=== PATIENT | male | born 1965 | race Hispanic/Latino ===

== ENCOUNTER 2017-07-01 14:32 | Observation (INO) | payer MEDICARE ==
[~2017-07-01 14:32] MED LIST: AEC81 PO; BUTA1CAP51 PO; INSU10VI3 SQ; INSU3INS5 SQ; METO-391 PO; NITR0.4T SL; OMEP20CA10 PO; SERT50TA12 PO; SIMV40TA59 PO; VARD10TA20 PO; XALA2.5OS OD
[2017-07-01] MEDS ORDERED: NITROGLYCERIN 0.4 MG SL TAB SL ONE (14:56)
[2017-07-01] MEDS ORDERED: ASPIRIN 325MG EC TAB 325 MG TABLET.DR PO ONE (14:56)
[2017-07-01 15:09] LABS: BASOPHILS % (AUTO) 1.1 % (0.0-5.0); EOSINOPHILS % (AUTO) 2.5 % (0.0-8.0); HEMATOCRIT 44.5 % (42-54); LYMPHOCYTES % (AUTO) 32.4 % (21.0-51.0); MEAN CORPUSCULAR HEMOGLOBIN 31.3 pg (27.0-33.0); MEAN CORPUSCULAR HGB CONC 34.7 g/dL (32.0-36.0); MEAN CORPUSCULAR VOLUME 90.3 fL (79-99); MONOCYTES % (AUTO) 5.2 % (3.0-13.0); NEUTROPHILS % (AUTO) 58.8 % (40.0-77.0); NUCLEATED RED BLOOD CELLS 0.1 % (0.0-0.19); PLATELET COUNT (AUTO) 223 K/uL (130-400); RED BLOOD CELL COUNT(AUTO) 4.93 MIL/uL (4.50-6.20); RED CELL DISTRIBUTION WIDTH 14.5 % (11.0-15.5); WHITE BLOOD COUNT (AUTO) 6.2 K/uL (4.8-10.8)
[2017-07-01 15:21] LABS: INR 0.9 (0.85-1.15); PARTIAL THROMBOPLASTIN TIME 25.9 SEC (26.3-35.5); PROTHROMBIN TIME 9.5 SEC (9.6-11.6)
[2017-07-01 15:24] LABS: CARBON DIOXIDE 26 mmol/L (21-32); CHLORIDE 97 mmol/L (101-111); CREATININE 0.8 mg/dL (0.5-1.5); GLOMERULAR FILTR. RATE CALC 108 mL/min (>60); GLUCOSE,RANDOM 391 mg/dL (70-105); SODIUM SERUM 132 mmol/L (136-145); UREA NITROGEN, BLOOD 15 mg/dL (7-18)
[2017-07-01 15:34] LABS: B-TYPE NATRIURETIC PEPTIDE 59 pg/mL (0-100)
[2017-07-01 15:38] LABS: ALANINE AMINOTRANSFERASE 79 U/L (12-78); ALBUMIN 3.1 g/dL (3.5-5.0); ASPARTATE AMINOTRANSFERASE 59 U/L (10-37); BILIRUBIN,TOTAL 0.4 mg/dL (0.2-1.0); CREATINE KINASE MB < 0.5 ng/mL (0.5-3.6); CREATINE KINASE, TOTAL 30 U/L (21-232); MYOGLOBIN 12 ng/mL (10-92); TOTAL PROTEIN, SERUM 7.9 g/dL (6.0-8.3)
[2017-07-01] MEDS ORDERED: MECLIZINE HCL 25 MG TABLET ONE (17:32)
[2017-07-01] MEDS ORDERED: NITROGLYCERIN 0.4 MG SL TAB SL PRN (17:45)
[2017-07-01] MEDS ORDERED: MAG HYDROX/AL HYDROX/SIMETH ES 30 ML SUSP UDCUP PO PRN (17:45)
[2017-07-01] MEDS ORDERED: GUAIFENESIN-DM 200/20 MG 10 ML PO PRN (17:45)
[2017-07-01] MEDS ORDERED: LACTULOSE 20 GM/30 ML UDCUP PO PRN (17:45)
[2017-07-01] MEDS ORDERED: ACETAMINOPHEN 325 MG TAB PO PRN ×2 (17:45)
[2017-07-01] MEDS ORDERED: ONDANSETRON HCL 4 MG/2 ML VIAL IV PRN (17:45)
[2017-07-01 18:32] LABS: CREATINE KINASE MB < 0.5 ng/mL (0.5-3.6); CREATINE KINASE, TOTAL 47 U/L (21-232); MYOGLOBIN 13 ng/mL (10-92); TROPONIN I < 0.04 ng/mL (0.00-0.06)
[2017-07-01] MEDS ORDERED: ENOXAPARIN SODIUM 40 MG/0.4 ML SYRINGE SQ ONE (19:03)
[2017-07-01] MEDS ORDERED: FAMOTIDINE/PF 20 MG/2 ML VIAL IV SCH (21:00)
[2017-07-02] MEDS ORDERED: ASPIRIN 325 MG TABLET PO SCH (09:00)
[2017-07-02] MEDS ORDERED: ENOXAPARIN SODIUM 40 MG/0.4 ML SYRINGE SQ SCH (09:00)
== END 2017-07-01 20:20 | disposition left against medical advice (07) ==
LOC: EDH 14:32 → EDHIP 17:35
PROVIDERS: ADMIT Family Medicine; ATTEND Family Medicine
DX: R07.89 Other chest pain (principal); I25.10 Atherosclerotic heart disease of native coronary artery without angina pectoris; E11.9 Type 2 diabetes mellitus without complications; E78.5 Hyperlipidemia, unspecified; I10 Essential (primary) hypertension; F17.210 Nicotine dependence, cigarettes, uncomplicated
CPT/HCPCS: 36415; 71045; 80053; 82550 ×2; 82553 ×2; 83874 ×2; 83880; 84484 ×2; 85025; 85610; 85730; 93005; 99285; G0378 ×3; J1650

== ENCOUNTER 2017-11-07 12:01 | Emergency (ER) | payer MEDICARE ==
[2017-11-07] MEDS ORDERED: ASPIRIN 325 MG TABLET ONE (12:17)
[2017-11-07] MEDS ORDERED: DIAZEPAM 5 MG TABLET ONE (12:26)
[2017-11-07 12:36] LABS: EOSINOPHILS % (AUTO) 3.4 % (0.0-8.0); HEMATOCRIT 47.3 % (42-54); LYMPHOCYTES % (AUTO) 34.6 % (21.0-51.0); MEAN CORPUSCULAR HEMOGLOBIN 31.1 pg (27.0-33.0); MEAN CORPUSCULAR HGB CONC 34.1 g/dL (32.0-36.0); MEAN CORPUSCULAR VOLUME 91.4 fL (79-99); MONOCYTES % (AUTO) 5.6 % (3.0-13.0); NEUTROPHILS % (AUTO) 55.4 % (40.0-77.0); NUCLEATED RED BLOOD CELLS 0.1 % (0.0-0.19); PLATELET COUNT (AUTO) 237 K/uL (130-400); RED BLOOD CELL COUNT(AUTO) 5.18 MIL/uL (4.50-6.20); RED CELL DISTRIBUTION WIDTH 14.5 % (11.0-15.5); WHITE BLOOD COUNT (AUTO) 7.4 K/uL (4.8-10.8)
[2017-11-07 12:47] LABS: CREATININE 0.7 mg/dL (0.5-1.5)
[2017-11-07 12:49] LABS: INR 0.88 (0.85-1.15); PARTIAL THROMBOPLASTIN TIME 27.3 SEC (26.3-35.5); PROTHROMBIN TIME 9.3 SEC (9.6-11.6)
[2017-11-07 13:14] LABS: ALBUMIN 3.2 g/dL (3.5-5.0); BILIRUBIN,TOTAL 0.4 mg/dL (0.2-1.0); CREATINE KINASE MB 1.7 ng/mL (0.5-3.6); TOTAL PROTEIN, SERUM 8.3 g/dL (6.0-8.3)
== END 2017-11-07 14:32 | disposition home or self-care (01) ==
LOC: EDH 12:01
DX: R07.9 Chest pain, unspecified (principal); I25.10 Atherosclerotic heart disease of native coronary artery without angina pectoris; E11.9 Type 2 diabetes mellitus without complications; E78.5 Hyperlipidemia, unspecified; I10 Essential (primary) hypertension; Z72.0 Tobacco use
CPT/HCPCS: 36415; 71045; 80053; 82550; 82553; 83874; 83880; 84484; 85025; 85610; 85730; 93005

== ENCOUNTER 2018-03-17 16:43 | Emergency (ER) | payer MEDICARE ==
[2018-03-17 17:48] LABS: BASOPHILS % (AUTO) 0.8 % (0.0-5.0); EOSINOPHILS % (AUTO) 5.9 % (0.0-8.0); HEMATOCRIT 44.6 % (42-54); MEAN CORPUSCULAR HEMOGLOBIN 30.8 pg (27.0-33.0); MEAN CORPUSCULAR HGB CONC 33.8 g/dL (32.0-36.0); MEAN CORPUSCULAR VOLUME 91.1 fL (79-99); MONOCYTES % (AUTO) 6.8 % (3.0-13.0); NEUTROPHILS % (AUTO) 62.5 % (40.0-77.0); NUCLEATED RED BLOOD CELLS 0.1 % (0.0-0.19); PLATELET COUNT (AUTO) 198 K/uL (130-400); WHITE BLOOD COUNT (AUTO) 7.3 K/uL (4.8-10.8)
[2018-03-17 17:57] LABS: CREATININE 0.9 mg/dL (0.5-1.5); POTASSIUM 4.9 mmol/L (3.5-5.1)
[2018-03-17 19:02] LABS: APPEARANCE,URINE Clear (CLEAR); BILIRUBIN,URINE Negative (NEGATIVE); COLOR,URINE Yellow (YELLOW); GLUCOSE, URINE (UA) >=1000 mg/dL (NEGATIVE); KETONES,URINE Negative (NEGATIVE); LEUKOCYTE ESTERASE ,URINE Negative (NEGATIVE); NITRATE,URINE Negative (NEGATIVE); OCCULT BLOOD,URINE Negative (NEGATIVE); PROTEIN,URINE Negative (NEGATIVE)
[2018-03-17 19:05] LABS: AMPHET/METH SCREEN,URINE NEGATIVE (NEGATIVE); BARBITURATE SCREEN, URINE NEGATIVE (NEGATIVE); BENZODIAZEPINES SCREEN,URINE NEGATIVE (NEGATIVE); CANNABINOID SCREEN,URINE NEGATIVE (NEGATIVE); COCAINE SCREEN,URINE NEGATIVE (NEGATIVE); OPIATE SCREEN,URINE NEGATIVE (NEGATIVE); PHENCYCLIDINE SCREEN,URINE NEGATIVE (NEGATIVE)
[2018-03-17 19:16] LABS: BACTERIA,URINE Rare /HPF (None Seen); RBC,URINE None Seen /HPF (0-1); WBC,URINE 0-1 /HPF (0-1)
== END 2018-03-17 19:51 | disposition home or self-care (01) ==
LOC: EDH 16:43
DX: R55 Syncope and collapse (principal); B02.9 Zoster without complications; I25.10 Atherosclerotic heart disease of native coronary artery without angina pectoris; E11.9 Type 2 diabetes mellitus without complications; E78.5 Hyperlipidemia, unspecified; I10 Essential (primary) hypertension; Z90.49 Acquired absence of other specified parts of digestive tract; Z72.0 Tobacco use
CPT/HCPCS: 36415; 80048; 80305; 81001; 84484; 85025; 93005

== ENCOUNTER 2018-03-30 18:33 | Emergency (ER) | payer MEDICARE | END 2018-03-30 19:04 | disposition home or self-care (01) | LOC: EDH 18:33 | DX: R21 Rash and other nonspecific skin eruption (principal); E78.5 Hyperlipidemia, unspecified; I25.10 Atherosclerotic heart disease of native coronary artery without angina pectoris; E11.40 Type 2 diabetes mellitus with diabetic neuropathy, unspecified; I10 Essential (primary) hypertension; Z90.49 Acquired absence of other specified parts of digestive tract; Z72.0 Tobacco use | CPT/HCPCS: 99281 ==

== ENCOUNTER 2018-12-10 17:20 | Observation (INO) | payer MEDICARE | END 2018-12-12 20:00 | disposition home or self-care (01) | LOC: EDH 17:20 → 3AH 12-11 01:42 → EDHIP 20:03 ==

== ENCOUNTER 2019-01-09 11:41 | Observation (INO) | payer MEDICARE ==
[~2019-01-09] VITALS: Ht 188 cm; Wt 95.0 kg
[~2019-01-09 11:41] MED LIST changes: +ATOR10 PO; +ATOR20TA65 PO; -BUTA1CAP51 PO; +GLIP5TAB11 PO; +IBUP-2071 PO; -INSU10VI3 SQ; -INSU3INS5 SQ; +LISI-617 PO; +METF-444 PO; -METO-391 PO; -NITR0.4T SL; -OMEP20CA10 PO; +PREG75 PO; -SERT50TA12 PO; -SIMV40TA59 PO; -VARD10TA20 PO
[2019-01-09 11:57] LABS: BASOPHILS % (AUTO) 0.8 % (0.0-5.0); EOSINOPHILS % (AUTO) 3.6 % (0.0-8.0); HEMATOCRIT 48.1 % (42-54); LYMPHOCYTES % (AUTO) 28.6 % (21.0-51.0); MEAN CORPUSCULAR HEMOGLOBIN 31.9 pg (27.0-33.0); MEAN CORPUSCULAR HGB CONC 34.4 g/dL (32.0-36.0); MEAN CORPUSCULAR VOLUME 92.7 fL (79-99); MONOCYTES % (AUTO) 5.2 % (3.0-13.0); NEUTROPHILS % (AUTO) 61.8 % (40.0-77.0); PLATELET COUNT (AUTO) 223 K/uL (130-400); RED BLOOD CELL COUNT(AUTO) 5.19 MIL/uL (4.50-6.20); RED CELL DISTRIBUTION WIDTH 14.3 % (11.0-15.5); WHITE BLOOD COUNT (AUTO) 8.1 K/uL (4.8-10.8)
[2019-01-09] MEDS ORDERED: SODIUM CHLORIDE 0.9% 1000ML 1,000 ML IV ONE ×2 (12:04→13:16)
[2019-01-09] MEDS ORDERED: ASPIRIN 325 MG TABLET ONE (12:05)
[2019-01-09 12:06] LABS: CREATININE 0.8 mg/dL (0.5-1.5); POTASSIUM 4.5 mmol/L (3.5-5.1)
[2019-01-09 12:21] LABS: B-TYPE NATRIURETIC PEPTIDE 55 pg/mL (0-100)
[2019-01-09] MEDS ORDERED: IBUPROFEN 200 MG TAB ONE (13:15)
[2019-01-09] MEDS ORDERED: INSULIN HUMULIN R 100 UNIT/ML 3ML ONE (14:13)
[2019-01-09 14:16] LABS: AMPHET/METH SCREEN,URINE NEGATIVE (NEGATIVE); BARBITURATE SCREEN, URINE NEGATIVE (NEGATIVE); BENZODIAZEPINES SCREEN,URINE NEGATIVE (NEGATIVE); CANNABINOID SCREEN,URINE NEGATIVE (NEGATIVE); COCAINE SCREEN,URINE NEGATIVE (NEGATIVE); OPIATE SCREEN,URINE NEGATIVE (NEGATIVE); PHENCYCLIDINE SCREEN,URINE NEGATIVE (NEGATIVE)
[2019-01-09] MEDS ORDERED: ONDANSETRON HCL 4 MG/2 ML VIAL ONE (14:43)
[2019-01-09] MEDS ORDERED: MORPHINE SULFATE 2 MG/ML 1ML SYG ONE (14:44)
[2019-01-09] MEDS ORDERED: NITROGLYCERIN 0.4 MG SL TAB SL ONE (14:44)
[2019-01-09] MEDS ORDERED: ENOXAPARIN SODIUM 100 MG/1 ML SQ ONE (16:03)
[2019-01-09] MEDS: SODIUM CHLORIDE 0.9% 1000ML 1,000 ML IV SCH (17:24)
[2019-01-09] MEDS ORDERED: HYDRALAZINE HCL 20 MG/ML VIAL IV PRN (17:30)
[2019-01-09] MEDS ORDERED: LACTULOSE 20 GM/30 ML UDCUP PO PRN (17:30)
[2019-01-09] MEDS ORDERED: MAG HYDROX/AL HYDROX/SIMETH ES 30 ML SUSP UDCUP PO PRN (17:30)
[2019-01-09] MEDS ORDERED: DiphenhydrAMINE HCL 50 MG/ML VIAL IV PRN (17:30)
[2019-01-09] MEDS ORDERED: ONDANSETRON HCL 4 MG/2 ML VIAL IV PRN (17:30)
[2019-01-09] MEDS ORDERED: ACETAMINOPHEN 325 MG TAB PO PRN ×2 (17:30)
[2019-01-09] MEDS ORDERED: ALBUTEROL SULFATE 0.083% 2.5 MG/3 ML INH IH PRN (17:30)
[2019-01-09] MEDS ORDERED: DIPHENHYDRAMINE HCL 25 MG CAPSULE PO PRN (17:30)
[2019-01-09] MEDS ORDERED: GUAIFENESIN-DM 200/20 MG 10 ML PO PRN (17:30)
[2019-01-09] MEDS ORDERED: ACETAMINOPHEN EXTRA STRENGTH 500 MG TABLET PO PRN (17:45)
[2019-01-09] MEDS ORDERED: ACETAMINOPHEN 325 MG TAB ONE (18:28)
[2019-01-09 19:56] VITALS: BP 131/73
[2019-01-09] MEDS: FAMOTIDINE 20MG TAB 20 MG TAB PO SCH (20:24)
[2019-01-09] MEDS: METOPROLOL TARTRATE 25 MG TAB PO SCH (20:25)
[2019-01-09 22:17] LABS: CREATINE KINASE, TOTAL 22 U/L (21-232); MYOGLOBIN 16 ng/mL (10-92); TROPONIN I < 0.04 ng/mL (0.00-0.06)
[2019-01-10] VITALS (10 sets, daily range): BP systolic 95–120; BP diastolic 59–80
[2019-01-10] MEDS ORDERED: MORPHINE SULFATE 2 MG/ML 1ML SYG ONE (00:05)
[2019-01-10] MEDS ORDERED: MORPHINE SULFATE 2 MG/ML 1ML SYG IM PRN ×2 (00:15)
[2019-01-10] MEDS: SODIUM CHLORIDE 0.9% 1000ML 1,000 ML IV SCH ×3 (03:24→23:24)
[2019-01-10 03:56] LABS: BASOPHILS % (AUTO) 0.7 % (0.0-5.0); EOSINOPHILS % (AUTO) 5.4 % (0.0-8.0); HEMATOCRIT 41.6 % (42-54); LYMPHOCYTES % (AUTO) 30.3 % (21.0-51.0); MEAN CORPUSCULAR HEMOGLOBIN 31.5 pg (27.0-33.0); MEAN CORPUSCULAR HGB CONC 33.5 g/dL (32.0-36.0); MEAN CORPUSCULAR VOLUME 94.1 fL (79-99); MONOCYTES % (AUTO) 6.2 % (3.0-13.0); NEUTROPHILS % (AUTO) 57.4 % (40.0-77.0); NUCLEATED RED BLOOD CELLS 0.1 % (0.0-0.19); PLATELET COUNT (AUTO) 189 K/uL (130-400); RED BLOOD CELL COUNT(AUTO) 4.42 MIL/uL (4.50-6.20); RED CELL DISTRIBUTION WIDTH 14.3 % (11.0-15.5); WHITE BLOOD COUNT (AUTO) 7.3 K/uL (4.8-10.8)
[2019-01-10 04:21] LABS: ALANINE AMINOTRANSFERASE 95 U/L (12-78); ALBUMIN 2.7 g/dL (3.5-5.0); ASPARTATE AMINOTRANSFERASE 91 U/L (10-37); BILIRUBIN,TOTAL 0.5 mg/dL (0.2-1.0); CARBON DIOXIDE 25 mmol/L (21-32); CHLORIDE 104 mmol/L (101-111); CREATINE KINASE, TOTAL 20 U/L (21-232); CREATININE 0.7 mg/dL (0.5-1.5); GLOMERULAR FILTR. RATE CALC 125 mL/min (>60); GLUCOSE,RANDOM 187 mg/dL (70-105); LIPASE 95 U/L (114-286); MYOGLOBIN 15 ng/mL (10-92); POTASSIUM 3.9 mmol/L (3.5-5.1); SODIUM SERUM 136 mmol/L (136-145); TOTAL PROTEIN, SERUM 7.2 g/dL (6.0-8.3); TROPONIN I < 0.04 ng/mL (0.00-0.06); UREA NITROGEN, BLOOD 12 mg/dL (7-18)
[2019-01-10] MEDS: NITROGLYCERIN 0.4 MG SL TAB SL PRN ×3 (08:05→08:21)
[2019-01-10] MEDS: FAMOTIDINE 20MG TAB 20 MG TAB PO SCH ×2 (08:16→21:41)
[2019-01-10] MEDS: ASPIRIN 325 MG TABLET PO SCH (08:16)
[2019-01-10] MEDS: ATORVASTATIN CALCIUM 20 MG TABLET PO SCH (08:16)
[2019-01-10] MEDS: ENOXAPARIN SODIUM 30 MG/0.3 ML SQ SCH (08:16)
[2019-01-10] MEDS: METOPROLOL TARTRATE 25 MG TAB PO SCH ×2 (08:17→21:42)
[2019-01-10] MEDS ORDERED: MORPHINE SULFATE 2 MG/ML 1ML SYG IV PRN (09:00)
[2019-01-10] MEDS ORDERED: IOHEXOL-350 75 ML VIAL IV ONE (09:16)
[2019-01-10] MEDS ORDERED: REGADENOSON 0.4 MG/5 ML PF SYG IVP SCH (09:30)
[2019-01-10] MEDS: MORPHINE SULFATE 2 MG/ML 1ML SYG IV PRN ×2 (14:29→21:42)
--- NOTE | 2019-01-10 15:03 | NUR ---
INITIAL: Met with pt this afternoon to discuss dcp. Pt states that he lives w spouse and children. Prior to admission was using a cane and required assistance w ADLs. Per pt he has provider services. Pt mentions that he was still driving prior to admission. He states that he feels safe and comfortable to return home at [place]. CM to continue to follow and wait for Md recommendations. Addendum: 01/10/19 at 1505 by ABDON SCHAFFER Amended: Links added.
[2019-01-11] MEDS: SODIUM CHLORIDE 0.9% 1000ML 1,000 ML IV SCH (00:19)
[2019-01-11 04:00] VITALS: BP 95/60
[2019-01-11 07:02] VITALS: BP 114/69
[2019-01-11] MEDS: ATORVASTATIN CALCIUM 20 MG TABLET PO SCH (08:28)
[2019-01-11] MEDS: FAMOTIDINE 20MG TAB 20 MG TAB PO SCH (08:28)
[2019-01-11] MEDS: ASPIRIN 325 MG TABLET PO SCH (08:28)
[2019-01-11] MEDS: METOPROLOL TARTRATE 25 MG TAB PO SCH (08:29)
[2019-01-11] MEDS: ENOXAPARIN SODIUM 30 MG/0.3 ML SQ SCH (08:30)
[2019-01-11] MEDS: MORPHINE SULFATE 2 MG/ML 1ML SYG IV PRN ×2 (08:31→13:10)
[2019-01-11 11:00] VITALS: BP 107/68
[2019-01-11] MEDS ORDERED: NITROGLYCERIN 1GM/1 INCH PACKET TD SCH (14:00)
[2019-01-11] MEDS ORDERED: METF-444 PO (14:16)
[2019-01-11] MEDS ORDERED: LISI-617 PO (14:16)
[2019-01-11] MEDS ORDERED: AEC81 PO (14:16)
[2019-01-11] MEDS ORDERED: ATOR20TA65 PO (14:16)
[2019-01-11] MEDS ORDERED: PREG75 PO (14:16)
[2019-01-11] MEDS ORDERED: NITR0.4T50 SL (14:16)
[2019-01-11] MEDS ORDERED: GLIP5TAB11 PO (14:16)
[2019-01-11] MEDS ORDERED: METO25 PO (14:16)
[2019-01-11 15:05] VITALS: BP 100/65
--- NOTE | 2019-01-11 20:00 | NUR ---
PT DISCHARGED AT THIS TIME. ESCORTED TO LOBBY BY VANITA PCP VIA WHEELCHAIR. PENDING TO BUFFER NICKEL PT AT THE LOBBY. STABLE. NO IV IN PLACE. TELE PACK REMOVED.
== END 2019-01-11 20:00 | disposition home or self-care (01) ==
LOC: EDH 11:41 → EDHIP 17:24 → 2AH 18:28
PROVIDERS: ADMIT Family Medicine; ATTEND Family Medicine
DX: R07.89 Other chest pain (principal); I25.10 Atherosclerotic heart disease of native coronary artery without angina pectoris; I10 Essential (primary) hypertension; E11.40 Type 2 diabetes mellitus with diabetic neuropathy, unspecified; E78.5 Hyperlipidemia, unspecified; E87.1 Hypo-osmolality and hyponatremia; G89.29 Other chronic pain; F17.210 Nicotine dependence, cigarettes, uncomplicated; Z95.1 Presence of aortocoronary bypass graft; Z95.5 Presence of coronary angioplasty implant and graft; Z79.899 Other long term (current) drug therapy
CPT/HCPCS: 36415 ×2; 70450; 71045; 71275; 76705; 78452; 80048; 80053; 80305; 82550 ×2; 82948 ×7; 83690; 83874 ×2; 83880; 84484 ×5; 85025 ×2; 93005 ×2; 93017; 93970; 94640; 94664; 96372 ×2; 96374; 96375; 96376 ×2; 99291; A9500 ×2; G0378 ×47; G0480; J1650 ×3; J1815; J2405 ×2; J2785; J7030 ×4; Q9967

== ENCOUNTER 2019-01-20 18:41 | Inpatient (IN) | payer MEDICARE ==
[~2019-01-20] VITALS: Ht 177.8 cm; Wt 95.8 kg
[~2019-01-20 18:41] MED LIST changes: -ATOR10 PO; -IBUP-2071 PO; +METO25 PO; +NITR0.4T50 SL
[2019-01-20 19:08] LABS: BASOPHILS % (AUTO) 0.8 % (0.0-5.0); EOSINOPHILS % (AUTO) 5.1 % (0.0-8.0); LYMPHOCYTES % (AUTO) 26.7 % (21.0-51.0); MEAN CORPUSCULAR HEMOGLOBIN 31.6 pg (27.0-33.0); MEAN CORPUSCULAR HGB CONC 33.7 g/dL (32.0-36.0); MEAN CORPUSCULAR VOLUME 93.9 fL (79-99); NEUTROPHILS % (AUTO) 60.4 % (40.0-77.0); PLATELET COUNT (AUTO) 213 K/uL (130-400); RED BLOOD CELL COUNT(AUTO) 4.58 MIL/uL (4.50-6.20); RED CELL DISTRIBUTION WIDTH 14.1 % (11.0-15.5); WHITE BLOOD COUNT (AUTO) 7.6 K/uL (4.8-10.8)
[2019-01-20 19:18] LABS: CREATININE 0.8 mg/dL (0.5-1.5); POTASSIUM 4.5 mmol/L (3.5-5.1)
[2019-01-20 19:23] LABS: ALBUMIN 3.1 g/dL (3.5-5.0); BILIRUBIN,TOTAL 0.5 mg/dL (0.2-1.0); TOTAL PROTEIN, SERUM 8.1 g/dL (6.0-8.3)
[2019-01-20 19:26] LABS: INR 0.9 (0.85-1.15); PROTHROMBIN TIME 9.5 SEC (9.6-11.6)
[2019-01-20] MEDS ORDERED: ACETAMINOPHEN 325 MG TAB ONE (20:31)
[2019-01-20 20:57] LABS: APPEARANCE,URINE Clear (CLEAR); BILIRUBIN,URINE Negative (NEGATIVE); COLOR,URINE Yellow (YELLOW); GLUCOSE, URINE (UA) >=1000 mg/dL (NEGATIVE); KETONES,URINE Negative (NEGATIVE); LEUKOCYTE ESTERASE ,URINE Negative (NEGATIVE); NITRATE,URINE Negative (NEGATIVE); OCCULT BLOOD,URINE Negative (NEGATIVE); PH,URINE 7.5 (5.0-8.0); PROTEIN,URINE Negative (NEGATIVE)
[2019-01-20 21:03] LABS: BACTERIA,URINE Rare /HPF (None Seen); MUCUS,URINE Few LPF (None Seen); RBC,URINE 0-1 /HPF (0-1); SQUAMOUS EPITHELIAL CELL,UR 0-2 /HPF (0-2); WBC,URINE 0-1 /HPF (0-1)
[2019-01-20 21:04] LABS: AMPHET/METH SCREEN,URINE NEGATIVE (NEGATIVE); BARBITURATE SCREEN, URINE NEGATIVE (NEGATIVE); BENZODIAZEPINES SCREEN,URINE NEGATIVE (NEGATIVE); CANNABINOID SCREEN,URINE NEGATIVE (NEGATIVE); COCAINE SCREEN,URINE NEGATIVE (NEGATIVE); OPIATE SCREEN,URINE NEGATIVE (NEGATIVE); PHENCYCLIDINE SCREEN,URINE NEGATIVE (NEGATIVE)
[2019-01-20] MEDS: NITROGLYCERIN 1GM/1 INCH PACKET TD SCH (22:15)
[2019-01-20] MEDS ORDERED: NITROGLYCERIN 1GM/1 INCH PACKET TD ONE (23:56)
[2019-01-20] MEDS ORDERED: SODIUM CHLORIDE 0.9% 1000ML 1,000 ML IV ONE (23:56)
[2019-01-21 01:15] VITALS: BP 141/73
--- NOTE | 2019-01-21 01:15 | NUR ---
PT ARRIVED FROM ER. DUE TO CHEST PAIN, NAUSEA, AND DIZZINESS. STATES HAS HAD CHRONIC CHEST PAIN FOR A WHILE NOW. CABG PT WITH STENTS PLACED. PT IS WEAK, AND SOB IS MINIMAL. ABLE TO AMBULATE IF NECESSARY. ON NASAL CANNULA AT 2LPM PER PT REQUEST TOR RELAX. HOME MEDS AT HOME, PT AWARE TO BRING IN THE AM.
[2019-01-21] MEDS: SODIUM CHLORIDE 0.9% 1000ML 1,000 ML IV SCH ×2 (02:00→11:10)
[2019-01-21 03:29] VITALS: BP 108/70
[2019-01-21] MEDS: MORPHINE SULFATE 2 MG/ML 1ML SYG IV PRN ×3 (03:35→13:49)
--- NOTE | 2019-01-21 03:41 | NUR ---
PT STATES FEELING PAIN TO HIS CHEST AND HIS HEAD. PT GIVEN MORPHINE PRN. WILL BE FOLLOW UP. NO SOB. NO DISTRESS NOTED.
[2019-01-21 04:55] LABS: CREATININE 0.8 mg/dL (0.5-1.5); POTASSIUM 4.1 mmol/L (3.5-5.1)
[2019-01-21 04:56] LABS: BASOPHILS % (AUTO) 0.8 % (0.0-5.0); EOSINOPHILS % (AUTO) 5.8 % (0.0-8.0); HEMATOCRIT 39.2 % (42-54); LYMPHOCYTES % (AUTO) 33.5 % (21.0-51.0); MEAN CORPUSCULAR HEMOGLOBIN 31.9 pg (27.0-33.0); MEAN CORPUSCULAR HGB CONC 33.8 g/dL (32.0-36.0); MEAN CORPUSCULAR VOLUME 94.6 fL (79-99); MONOCYTES % (AUTO) 6.9 % (3.0-13.0); PLATELET COUNT (AUTO) 225 K/uL (130-400); RED BLOOD CELL COUNT(AUTO) 4.14 MIL/uL (4.50-6.20); RED CELL DISTRIBUTION WIDTH 14.2 % (11.0-15.5)
[2019-01-21 05:01] LABS: HEMOGLOBIN A1C 10.3 % (4.0-6.0)
[2019-01-21] MEDS: NITROGLYCERIN 1GM/1 INCH PACKET TD SCH ×2 (05:06→13:51)
[2019-01-21] MEDS: INSULIN HUMULIN R 100 UNIT/ML 3ML SQ SCH ×3 (06:12→16:30)
[2019-01-21 08:00] VITALS: BP 110/67
--- NOTE | 2019-01-21 08:30 | NUR ---
PATIENT C/O PAIN. MORPHINE 2 MG GIVEN IV. Addendum: 01/21/19 at 1026 by GIULIA GAGE RN RN Amended: Links added.
[2019-01-21] MEDS ORDERED: ASPIRIN 81MG TAB.CHEW PO SCH (09:00)
[2019-01-21] MEDS ORDERED: ENOXAPARIN SODIUM 40 MG/0.4 ML SYRINGE SQ SCH (09:00)
[2019-01-21] MEDS ORDERED: FAMOTIDINE/PF 20 MG/2 ML VIAL IV SCH (09:00)
--- NOTE | 2019-01-21 10:27 | NUR ---
PATIENT C/O OF CHEST PAIN. VITAL SIGNS OF 102/62 WITH HR @ A NORMAL SINUS RHYTHM 60. WILL CONTINUE TO MONITOR CLOSELY. DR BOSS ROUNDBRY AND IS AWARE OF PATIENT. Addendum: 01/21/19 at 1029 by GIULIA GAGE RN RN Amended: Links added.
--- NOTE | 2019-01-21 11:41 | NUR ---
DC PLAN PATIENT LIVES WITH SPOUSE. INDEPENDENT ABLE TO PERFORM ADL'S. PATIENT HAS NO SERVICES OR DME'S. FEELS SAFE TO RETURN HOME. WILL LET NURSING KNOW THAT PATIENT REQUESTING LIST OF PROVIDERS SINCE HE HAS NO PRIMARY.
[2019-01-21 12:00] VITALS: BP 100/62
[2019-01-21 16:00] VITALS: BP 99/62
[2019-01-21] MEDS ORDERED: NITROGLYCERIN 0.4 MG SL TAB SL PRN (16:30)
[2019-01-21] MEDS ORDERED: ISOS30TA6 PO (16:54)
--- NOTE | 2019-01-21 16:58 | NUR ---
DC PLAN PATIENT LIVES WITH SPOUSE. INDEPENDENT ABLE TO PERFORM ADL'S. PATIENT HAS NO SERVICES. USES A CANE. FEELS SAFE TO RETURN HOME. Addendum: 01/21/19 at 1659 by MANNY GARCIA RN CM Amended: Links added.
[2019-01-21] MEDS ORDERED: KETOROLAC TROMETHAMINE 15MG/ML IM ONE (18:30)
[2019-01-21] MEDS ORDERED: ATORVASTATIN CALCIUM 20 MG TABLET PO SCH (21:00)
[2019-01-21] MEDS ORDERED: METOPROLOL TARTRATE 25 MG TAB PO SCH (21:00)
[2019-01-22] MEDS ORDERED: ASPIRIN 81 MG EC TAB PO SCH (09:00)
[2019-01-22] MEDS ORDERED: LISINOPRIL 5 MG TABLET PO SCH (09:00)
== END 2019-01-21 19:25 | disposition home or self-care (01) | DRG 206 ==
LOC: EDH 18:41 → 2DH 22:14
PROVIDERS: ADMIT Internal Medicine; ATTEND Internal Medicine
DX: M94.0 Chondrocostal junction syndrome [Tietze] (principal); E78.5 Hyperlipidemia, unspecified; F17.200 Nicotine dependence, unspecified, uncomplicated; E11.40 Type 2 diabetes mellitus with diabetic neuropathy, unspecified; I10 Essential (primary) hypertension; I25.10 Atherosclerotic heart disease of native coronary artery without angina pectoris; Z95.1 Presence of aortocoronary bypass graft; Z82.3 Family history of stroke; Z83.3 Family history of diabetes mellitus; Z82.49 Family history of ischemic heart disease and other diseases of the circulatory system; Z79.84 Long term (current) use of oral hypoglycemic drugs
CPT/HCPCS: 36415; 71045; 80048; 80053; 80061; 80305; 81001; 82948; 83036; 84484; 85025; 85610; 85730; 93005; G0378; J1650; J1815; J1885; J3490; J7030

== ENCOUNTER 2019-01-27 22:11 | Emergency (ER) | payer MEDICARE ==
[~2019-01-27 22:11] MED LIST changes: +ISOS30TA6 PO
[2019-01-27] MEDS ORDERED: ONDANSETRON HCL 4 MG/2 ML VIAL ONE (23:05)
[2019-01-27] MEDS ORDERED: KETOROLAC TROMETHAMINE 30MG/ML ONE (23:06)
[2019-01-27 23:08] LABS: BASOPHILS % (AUTO) 1.2 % (0.0-5.0); EOSINOPHILS % (AUTO) 3.5 % (0.0-8.0); HEMATOCRIT 42.5 % (42-54); LYMPHOCYTES % (AUTO) 34.1 % (21.0-51.0); MEAN CORPUSCULAR HEMOGLOBIN 31.6 pg (27.0-33.0); MEAN CORPUSCULAR HGB CONC 33.8 g/dL (32.0-36.0); MEAN CORPUSCULAR VOLUME 93.5 fL (79-99); MONOCYTES % (AUTO) 8.8 % (3.0-13.0); NEUTROPHILS % (AUTO) 52.4 % (40.0-77.0); PLATELET COUNT (AUTO) 245 K/uL (130-400); RED BLOOD CELL COUNT(AUTO) 4.55 MIL/uL (4.50-6.20); RED CELL DISTRIBUTION WIDTH 14.2 % (11.0-15.5); WHITE BLOOD COUNT (AUTO) 6.4 K/uL (4.8-10.8)
[2019-01-27 23:27] LABS: CREATININE 1.2 mg/dL (0.5-1.5); POTASSIUM 5.1 mmol/L (3.5-5.1)
[2019-01-28] MEDS ORDERED: INSULIN HUMULIN R 100 UNIT/ML 3ML ONE (00:20)
== END 2019-01-28 00:50 | disposition home or self-care (01) ==
LOC: EDH 22:11
DX: E11.65 Type 2 diabetes mellitus with hyperglycemia (principal); R07.89 Other chest pain; I25.10 Atherosclerotic heart disease of native coronary artery without angina pectoris; E78.5 Hyperlipidemia, unspecified; E11.40 Type 2 diabetes mellitus with diabetic neuropathy, unspecified; Z95.1 Presence of aortocoronary bypass graft
CPT/HCPCS: 36415; 80048; 84484; 85025; 93005; 96374; 96375 ×2; 99285; J1815; J1885; J2405

== ENCOUNTER 2019-02-08 14:14 | Emergency (ER) | payer MEDICARE ==
[2019-02-08] MEDS ORDERED: ASPIRIN 325 MG TABLET ONE (14:36)
[2019-02-08 14:38] LABS: BASOPHILS % (AUTO) 1.4 % (0.0-5.0); EOSINOPHILS % (AUTO) 2.3 % (0.0-8.0); HEMATOCRIT 44.7 % (42-54); LYMPHOCYTES % (AUTO) 30.7 % (21.0-51.0); MEAN CORPUSCULAR HEMOGLOBIN 32.1 pg (27.0-33.0); MEAN CORPUSCULAR HGB CONC 34.6 g/dL (32.0-36.0); MEAN CORPUSCULAR VOLUME 92.8 fL (79-99); MONOCYTES % (AUTO) 5.5 % (3.0-13.0); NEUTROPHILS % (AUTO) 60.1 % (40.0-77.0); PLATELET COUNT (AUTO) 176 K/uL (130-400); RED BLOOD CELL COUNT(AUTO) 4.82 MIL/uL (4.50-6.20); RED CELL DISTRIBUTION WIDTH 14.3 % (11.0-15.5)
[2019-02-08 14:50] LABS: INR 0.89 (0.85-1.15); PARTIAL THROMBOPLASTIN TIME 26.6 SEC (26.3-35.5); PROTHROMBIN TIME 9.4 SEC (9.6-11.6)
[2019-02-08 14:51] LABS: CREATININE 0.8 mg/dL (0.5-1.5); POTASSIUM 4.5 mmol/L (3.5-5.1)
[2019-02-08 15:02] LABS: ALBUMIN 3.6 g/dL (3.5-5.0); BILIRUBIN,TOTAL 0.6 mg/dL (0.2-1.0); TOTAL PROTEIN, SERUM 8.7 g/dL (6.0-8.3)
[2019-02-08] MEDS ORDERED: ACETAMINOPHEN 325 MG TAB ONE (16:40)
[2019-02-08] MEDS ORDERED: ONDANSETRON ODT 4 MG TAB ONE (16:40)
== END 2019-02-08 16:48 | disposition home or self-care (01) ==
LOC: EDH 14:14
DX: R07.89 Other chest pain (principal); E78.5 Hyperlipidemia, unspecified; E11.40 Type 2 diabetes mellitus with diabetic neuropathy, unspecified; I25.10 Atherosclerotic heart disease of native coronary artery without angina pectoris; Z95.1 Presence of aortocoronary bypass graft; Z72.0 Tobacco use
CPT/HCPCS: 36415; 70450; 71045; 80053; 82550; 83874; 84484; 85025; 85610; 85730; 93005

== ENCOUNTER 2019-06-21 13:56 | Emergency (ER) | payer MEDICARE ==
[~2019-06-21 13:56] MED LIST changes: +PANT40TA25 PO
[2019-06-21 14:17] LABS: BASOPHILS % (AUTO) 0.6 % (0.0-5.0); EOSINOPHILS % (AUTO) 2.1 % (0.0-8.0); HEMATOCRIT 50.4 % (42-54); LYMPHOCYTES % (AUTO) 31.8 % (21.0-51.0); MEAN CORPUSCULAR HEMOGLOBIN 30.5 pg (27.0-33.0); MEAN CORPUSCULAR HGB CONC 33.7 g/dL (32.0-36.0); MEAN CORPUSCULAR VOLUME 90.3 fL (79-99); MONOCYTES % (AUTO) 5.6 % (3.0-13.0); NEUTROPHILS % (AUTO) 59.6 % (40.0-77.0); PLATELET COUNT (AUTO) 243 K/uL (130-400); RED BLOOD CELL COUNT(AUTO) 5.58 MIL/uL (4.50-6.20); RED CELL DISTRIBUTION WIDTH 13.6 % (11.0-15.5); WHITE BLOOD COUNT (AUTO) 8.9 K/uL (4.8-10.8)
[2019-06-21 14:27] LABS: POTASSIUM 5.7 mmol/L (3.5-5.1)
[2019-06-21 14:35] LABS: ALBUMIN 3.7 g/dL (3.5-5.0); BILIRUBIN,TOTAL 0.5 mg/dL (0.2-1.0); TOTAL PROTEIN, SERUM 8.8 g/dL (6.0-8.3)
[2019-06-21] MEDS ORDERED: ASPIRIN 325 MG TABLET ONE (14:35)
[2019-06-21] MEDS ORDERED: LORAZEPAM 2 MG/ML 1 ML VIAL ONE (14:36)
== END 2019-06-21 16:41 | disposition home or self-care (01) ==
LOC: EDH 13:56
DX: R07.9 Chest pain, unspecified (principal); R00.2 Palpitations; I25.810 Atherosclerosis of coronary artery bypass graft(s) without angina pectoris; E11.40 Type 2 diabetes mellitus with diabetic neuropathy, unspecified; E78.5 Hyperlipidemia, unspecified; I10 Essential (primary) hypertension; Z72.0 Tobacco use
CPT/HCPCS: 36415; 71045; 80053; 82550; 83880; 84484; 85025; 93005; 96374; 99285; J2060

== ENCOUNTER 2019-08-20 13:42 | Inpatient (IN) | payer MEDICARE ==
[~2019-08-20] VITALS: Ht 177.8 cm; Wt 92.0 kg
[2019-08-20] MEDS ORDERED: ASPIRIN 325 MG TABLET ONE (13:56)
[2019-08-20 14:13] LABS: BASOPHILS % (AUTO) 0.8 % (0.0-5.0); EOSINOPHILS % (AUTO) 2.2 % (0.0-8.0); HEMATOCRIT 49.2 % (42-54); LYMPHOCYTES % (AUTO) 28.7 % (21.0-51.0); MEAN CORPUSCULAR HEMOGLOBIN 30.7 pg (27.0-33.0); MEAN CORPUSCULAR HGB CONC 33.7 g/dL (32.0-36.0); MEAN CORPUSCULAR VOLUME 91.1 fL (79-99); MONOCYTES % (AUTO) 5.6 % (3.0-13.0); NEUTROPHILS % (AUTO) 62.6 % (40.0-77.0); PLATELET COUNT (AUTO) 179 K/uL (130-400); RED CELL DISTRIBUTION WIDTH 13.7 % (11.0-15.5); WHITE BLOOD COUNT (AUTO) 7.7 K/uL (4.8-10.8)
[2019-08-20 14:35] LABS: INR 0.9 (0.85-1.15); PARTIAL THROMBOPLASTIN TIME 27.4 SEC (26.3-35.5); PROTHROMBIN TIME 9.8 SEC (9.6-11.6)
[2019-08-20 14:40] LABS: APPEARANCE,URINE Clear (CLEAR); BILIRUBIN,URINE Negative (NEGATIVE); COLOR,URINE Yellow (YELLOW); GLUCOSE, URINE (UA) Negative (NEGATIVE); KETONES,URINE Negative (NEGATIVE); LEUKOCYTE ESTERASE ,URINE Negative (NEGATIVE); NITRATE,URINE Negative (NEGATIVE); OCCULT BLOOD,URINE Negative (NEGATIVE); PROTEIN,URINE Negative (NEGATIVE)
[2019-08-20 14:51] LABS: AMPHET/METH SCREEN,URINE NEGATIVE (NEGATIVE); BARBITURATE SCREEN, URINE NEGATIVE (NEGATIVE); BENZODIAZEPINES SCREEN,URINE NEGATIVE (NEGATIVE); CANNABINOID SCREEN,URINE NEGATIVE (NEGATIVE); COCAINE SCREEN,URINE NEGATIVE (NEGATIVE); OPIATE SCREEN,URINE NEGATIVE (NEGATIVE); PHENCYCLIDINE SCREEN,URINE NEGATIVE (NEGATIVE)
[2019-08-20 15:21] LABS: CREATININE 0.8 mg/dL (0.5-1.5); POTASSIUM 4.3 mmol/L (3.5-5.1)
[2019-08-20 15:27] LABS: ALBUMIN 3.3 g/dL (3.5-5.0); BILIRUBIN,TOTAL 0.5 mg/dL (0.2-1.0); TOTAL PROTEIN, SERUM 7.9 g/dL (6.0-8.3)
[2019-08-20] MEDS ORDERED: MORPHINE SULFATE 2 MG/ML 1ML SYG IVP ONE (16:00)
[2019-08-20] MEDS ORDERED: ATORVASTATIN CALCIUM 20 MG TABLET PO SCH ×2 (16:00→21:00)
[2019-08-20] MEDS ORDERED: ONDANSETRON HCL 4 MG/2 ML VIAL IV PRN (16:15)
[2019-08-20] MEDS ORDERED: METOPROLOL TARTRATE 25 MG TAB PO SCH ×2 (16:15→21:00)
[2019-08-20] MEDS ORDERED: LACTULOSE 20 GM/30 ML UDCUP PO PRN (16:15)
[2019-08-20] MEDS ORDERED: NITROGLYCERIN 1GM/1 INCH PACKET TD SCH (16:15)
[2019-08-20] MEDS ORDERED: NITROGLYCERIN 1GM/1 INCH PACKET TD ONE (16:50)
[2019-08-20] MEDS ORDERED: HYDROCODONE/ACETAMINOPHEN 5/325 MG TAB ONE (18:29)
[2019-08-20 18:55] VITALS: BP 121/80
[2019-08-20] MEDS: NITROGLYCERIN 0.4 MG SL TAB SL PRN (19:43)
[2019-08-20] MEDS: INSULIN HUMULIN R 100 UNIT/ML 3ML SQ SCH (20:39)
[2019-08-20] MEDS: FAMOTIDINE/PF 20 MG/2 ML VIAL IV SCH (20:53)
[2019-08-20] MEDS: ATORVASTATIN CALCIUM 40 MG TABLET PO SCH (20:53)
[2019-08-20] MEDS: PREGABALIN 75 MG CAPSULE PO SCH (20:53)
[2019-08-20] MEDS: HYDROCODONE/ACETAMINOPHEN 5/325 MG TAB PO PRN (20:55)
[2019-08-20] MEDS: LATANOPROST 2.5 ML DROPS OD SCH (21:00)
--- NOTE | 2019-08-20 21:00 | NUR ---
HOME MEDICATIONS Patient states that he has not taken any home medications since the end of last year.
[2019-08-20 22:58] VITALS: BP 98/65
[2019-08-21] MEDS: MORPHINE SULFATE 2 MG/ML 1ML SYG IVP PRN ×3 (00:59→22:35)
[2019-08-21 03:29] VITALS: BP 104/61
[2019-08-21 04:58] LABS: BASOPHILS % (AUTO) 0.2 % (0.0-5.0); EOSINOPHILS % (AUTO) 1.7 % (0.0-8.0); HEMATOCRIT 45.7 % (42-54); LYMPHOCYTES % (AUTO) 10.2 % (21.0-51.0); MEAN CORPUSCULAR HEMOGLOBIN 29.8 pg (27.0-33.0); MEAN CORPUSCULAR VOLUME 90.1 fL (79-99); MONOCYTES % (AUTO) 5.5 % (3.0-13.0); NEUTROPHILS % (AUTO) 82.1 % (40.0-77.0); PLATELET COUNT (AUTO) 183 K/uL (130-400); RED BLOOD CELL COUNT(AUTO) 5.07 MIL/uL (4.50-6.20); RED CELL DISTRIBUTION WIDTH 13.8 % (11.0-15.5); WHITE BLOOD COUNT (AUTO) 13.2 K/uL (4.8-10.8)
[2019-08-21 05:07] LABS: HEMOGLOBIN A1C 10.3 % (4.0-6.0)
[2019-08-21 05:33] LABS: BILIRUBIN,TOTAL 0.8 mg/dL (0.2-1.0); CREATININE 0.7 mg/dL (0.5-1.5); POTASSIUM 3.9 mmol/L (3.5-5.1); THYROID STIMULATING HORMONE 0.58 uIU/mL (0.36-3.74); TOTAL PROTEIN, SERUM 7.3 g/dL (6.0-8.3)
[2019-08-21] MEDS: INSULIN HUMULIN R 100 UNIT/ML 3ML SQ SCH ×4 (06:23→21:00)
[2019-08-21 07:30] VITALS: BP 87/58
[2019-08-21] MEDS: REGADENOSON 0.4 MG/5 ML PF SYG IVP SCH ×2 (07:30→10:34)
[2019-08-21] MEDS ORDERED: AZITHROMYCIN 250 MG TABLET PO SCH (08:30)
[2019-08-21] MEDS: ENOXAPARIN SODIUM 40 MG/0.4 ML SYRINGE SQ SCH (09:00)
[2019-08-21] MEDS: FAMOTIDINE/PF 20 MG/2 ML VIAL IV SCH ×2 (09:00→21:01)
[2019-08-21] MEDS: ASPIRIN 81 MG EC TAB PO SCH (09:00)
[2019-08-21] MEDS: LISINOPRIL 5 MG TABLET PO SCH (09:00)
[2019-08-21] MEDS ORDERED: ISOSORBIDE MONO 30MG TAB SR PO SCH (09:00)
[2019-08-21] MEDS: NAPROXEN 250 MG TAB PO SCH ×2 (09:00→21:00)
[2019-08-21] MEDS: PREGABALIN 75 MG CAPSULE PO SCH ×2 (09:00→21:01)
[2019-08-21] MEDS ORDERED: METOPROLOL SUCCINATE 50 MG TAB.SR.24H PO SCH (09:00)
[2019-08-21 11:30] VITALS: BP 96/69
[2019-08-21] MEDS: ACETAMINOPHEN 325 MG TAB PO PRN (12:23)
[2019-08-21] MEDS: HYDROCODONE/ACETAMINOPHEN 5/325 MG TAB PO PRN ×2 (14:26→21:01)
[2019-08-21 15:30] VITALS: BP 94/57
--- NOTE | 2019-08-21 16:07 | NUR ---
Initial: Met with pt this afternoon to discuss dcp. Pt mentions that he lives w his spouse and 2 sons. Prior to admission he was independent w ambulation but has a cane avail if needed. Per pt her required assistance w ADLs and has provider services 8a-1130am. He mentions that his family provides transportation where needed. Per pt, he feels safe and comfortable to return home at [place]. CM to continue to follow and wait for Md recommendations. Addendum: 08/22/19 at 1612 by ABDON SCHAFFER Amended: Links added.
--- NOTE | 2019-08-21 17:06 | NUR ---
PT COMPLAINING OF HEADACHE AND MILD PRESSURE LIKE CHEST PAIN THAT HE MENTION STARTED AFTER HE CAME BACK FROM STRESS TEST TODAY. PT WAS GIVEN TYLENOL REQUESTED. PT CONTINUED WITH THE PRESSURE LIKE CHEST PAIN AND DR. BOSS WAS NOTIFY AND ORDER EKG STAT, CARDIAC PANEL Q8 X 3, NITROGLYCERIN OINTMENT 1/2 INCH ON CHEST AND NOTIFY CARDIOLOGY IF CAME BACK WITH ABNORMAL LABS.
[2019-08-21] MEDS: NITROGLYCERIN 1GM/1 INCH PACKET TD SCH (17:25)
[2019-08-21 17:46] LABS: CREATINE KINASE, TOTAL 26 U/L (21-232); MYOGLOBIN 15 ng/mL (10-92); TROPONIN I < 0.04 ng/mL (0.00-0.06)
[2019-08-21 18:52] VITALS: BP 95/58
[2019-08-21] MEDS: LATANOPROST 2.5 ML DROPS OD SCH (21:00)
[2019-08-21] MEDS: ATORVASTATIN CALCIUM 40 MG TABLET PO SCH (21:00)
[2019-08-21 23:08] VITALS: BP 94/62
[2019-08-22] MEDS: NITROGLYCERIN 1GM/1 INCH PACKET TD SCH (01:06)
[2019-08-22 03:20] VITALS: BP 104/68
[2019-08-22 04:16] LABS: BASOPHILS % (AUTO) 0.6 % (0.0-5.0); EOSINOPHILS % (AUTO) 5.7 % (0.0-8.0); HEMATOCRIT 45.8 % (42-54); LYMPHOCYTES % (AUTO) 33.9 % (21.0-51.0); MEAN CORPUSCULAR HEMOGLOBIN 30.3 pg (27.0-33.0); MEAN CORPUSCULAR HGB CONC 32.5 g/dL (32.0-36.0); MEAN CORPUSCULAR VOLUME 93.3 fL (79-99); MONOCYTES % (AUTO) 5.5 % (3.0-13.0); PLATELET COUNT (AUTO) 171 K/uL (130-400); RED BLOOD CELL COUNT(AUTO) 4.91 MIL/uL (4.50-6.20); RED CELL DISTRIBUTION WIDTH 13.6 % (11.0-15.5); WHITE BLOOD COUNT (AUTO) 6.7 K/uL (4.8-10.8)
[2019-08-22 04:33] LABS: BILIRUBIN,TOTAL 0.7 mg/dL (0.2-1.0); POTASSIUM 3.9 mmol/L (3.5-5.1); TOTAL PROTEIN, SERUM 7.3 g/dL (6.0-8.3)
[2019-08-22] MEDS: INSULIN HUMULIN R 100 UNIT/ML 3ML SQ SCH ×4 (06:33→21:16)
[2019-08-22 07:30] VITALS: BP 94/59
[2019-08-22] MEDS ORDERED: AZIT250T9 PO (08:25)
[2019-08-22] MEDS ORDERED: METO-391 PO (08:25)
[2019-08-22] MEDS ORDERED: NAPR-1192 PO (08:26)
[2019-08-22] MEDS: LISINOPRIL 5 MG TABLET PO SCH (09:00)
[2019-08-22] MEDS: NAPROXEN 250 MG TAB PO SCH ×2 (09:37→21:19)
[2019-08-22] MEDS: FAMOTIDINE/PF 20 MG/2 ML VIAL IV SCH ×2 (09:37→21:19)
[2019-08-22] MEDS: ENOXAPARIN SODIUM 40 MG/0.4 ML SYRINGE SQ SCH (09:37)
[2019-08-22] MEDS: ASPIRIN 81 MG EC TAB PO SCH (09:38)
[2019-08-22] MEDS: PREGABALIN 75 MG CAPSULE PO SCH ×2 (09:38→21:19)
[2019-08-22] MEDS: AZITHROMYCIN 250 MG TABLET PO SCH (09:38)
[2019-08-22 11:30] VITALS: BP 102/66
[2019-08-22] MEDS: ACETAMINOPHEN 325 MG TAB PO PRN (13:50)
[2019-08-22 15:30] VITALS: BP 104/64
[2019-08-22 19:01] VITALS: BP 111/70
[2019-08-22] MEDS: LATANOPROST 2.5 ML DROPS OD SCH (21:00)
[2019-08-22] MEDS: ATORVASTATIN CALCIUM 40 MG TABLET PO SCH (21:19)
[2019-08-22] MEDS: MORPHINE SULFATE 2 MG/ML 1ML SYG IVP PRN (21:27)
[2019-08-22 23:04] VITALS: BP 105/67
[2019-08-23] MEDS: NITROGLYCERIN 0.4 MG SL TAB SL PRN (01:37)
[2019-08-23] MEDS: ACETAMINOPHEN 325 MG TAB PO PRN (01:38)
[2019-08-23 03:14] VITALS: BP 87/56
[2019-08-23 04:35] LABS: BASOPHILS % (AUTO) 0.4 % (0.0-5.0); EOSINOPHILS % (AUTO) 4.2 % (0.0-8.0); HEMATOCRIT 44.5 % (42-54); LYMPHOCYTES % (AUTO) 27.3 % (21.0-51.0); MEAN CORPUSCULAR HEMOGLOBIN 29.9 pg (27.0-33.0); MEAN CORPUSCULAR HGB CONC 32.8 g/dL (32.0-36.0); MEAN CORPUSCULAR VOLUME 91.2 fL (79-99); MONOCYTES % (AUTO) 7.2 % (3.0-13.0); NEUTROPHILS % (AUTO) 60.6 % (40.0-77.0); PLATELET COUNT (AUTO) 177 K/uL (130-400); RED BLOOD CELL COUNT(AUTO) 4.88 MIL/uL (4.50-6.20); RED CELL DISTRIBUTION WIDTH 13.5 % (11.0-15.5); WHITE BLOOD COUNT (AUTO) 7.6 K/uL (4.8-10.8)
[2019-08-23 04:49] LABS: INR 0.91 (0.85-1.15); PROTHROMBIN TIME 9.9 SEC (9.6-11.6)
[2019-08-23 04:58] LABS: ALBUMIN 3.1 g/dL (3.5-5.0); BILIRUBIN,TOTAL 0.5 mg/dL (0.2-1.0); MAGNESIUM 1.8 mg/dL (1.80-2.40); PHOSPHORUS 3.7 mg/dL (2.5-4.9); POTASSIUM 4.1 mmol/L (3.5-5.1); TOTAL PROTEIN, SERUM 7.4 g/dL (6.0-8.3)
[2019-08-23] MEDS: INSULIN HUMULIN R 100 UNIT/ML 3ML SQ SCH ×2 (07:09→11:30)
[2019-08-23 07:42] VITALS: BP 99/61
[2019-08-23] MEDS: PREGABALIN 75 MG CAPSULE PO SCH ×2 (07:42→10:49)
[2019-08-23] MEDS: ASPIRIN 81 MG EC TAB PO SCH ×2 (07:42→10:49)
[2019-08-23] MEDS: LISINOPRIL 5 MG TABLET PO SCH (07:42)
[2019-08-23] MEDS: FAMOTIDINE/PF 20 MG/2 ML VIAL IV SCH (07:42)
[2019-08-23] MEDS: ENOXAPARIN SODIUM 40 MG/0.4 ML SYRINGE SQ SCH (07:42)
[2019-08-23] MEDS: NAPROXEN 250 MG TAB PO SCH ×2 (07:42→10:49)
--- NOTE | 2019-08-23 08:00 | NUR ---
ASSESSMENT PT IS AAOX3 DENIES CP DENIES SOB DENIES NV NO COMPLAINTS, RESTING IN BED. BREATHING PATTERN IS EVEN AND UNLABORED. CALL LIGHT WITHIN REACH. NPO STATUS FOR [facility] TODAY. ALSO, LOVENOX GOT GIVEN.
[2019-08-23] MEDS: HYDROCODONE/ACETAMINOPHEN 5/325 MG TAB PO PRN (09:17)
--- NOTE | 2019-08-23 10:30 | NUR ---
MD ROUNDS DR EAGLE ROUNDED, EKG DONE AT BEDSIDE. CANCEL LHC TODAY. OK TO DC HOME DR BOSS ROUNDED, PLAN FOR DC HOME TODAY. PATIENT IS AWARE.
[2019-08-23] MEDS: AZITHROMYCIN 250 MG TABLET PO SCH (10:49)
[2019-08-23 11:57] VITALS: BP 118/77
[2019-08-23] MEDS ORDERED: AEC81 PO (12:14)
[2019-08-23] MEDS ORDERED: ATOR40TA69 PO (12:14)
[2019-08-23] MEDS ORDERED: METF-444 PO (12:14)
[2019-08-23] MEDS ORDERED: GLIP5TAB11 PO (12:14)
--- NOTE | 2019-08-23 12:57 | NUR ---
DISCHARGE PT VERBALIZES DC INSTRUCTIONS UNDERSTANDING AGREE TO TAKE MEDS ORDERED AND FOLLOW UP WITH [facility] TODAY TO DROP OFF ORDER FOR TELE MONITORING. ALL QUESTIONS ANSWERED. PIV REMOVED CATH TIP INTACT, TELE PACK REMOVED. BELONGINGS GATHERED, DOWN TO VEHICLE VIA WC WITH NURSE AIDE.
--- NOTE | 2019-08-23 16:15 | NUR ---
1430 Patient discharged before IM Letter was given
== END 2019-08-23 13:05 | disposition home or self-care (01) | DRG 206 ==
LOC: EDH 13:42 → EDHIP 16:06 → 2AH 18:33
PROVIDERS: ADMIT Internal Medicine; ATTEND Internal Medicine
DX: M94.0 Chondrocostal junction syndrome [Tietze] (principal); J20.9 Acute bronchitis, unspecified; E11.51 Type 2 diabetes mellitus with diabetic peripheral angiopathy without gangrene; E78.5 Hyperlipidemia, unspecified; F17.210 Nicotine dependence, cigarettes, uncomplicated; G47.33 Obstructive sleep apnea (adult) (pediatric); I10 Essential (primary) hypertension; I25.10 Atherosclerotic heart disease of native coronary artery without angina pectoris; I45.5 Other specified heart block; Z79.82 Long term (current) use of aspirin; Z79.899 Other long term (current) drug therapy; Z91.19 Patient's noncompliance with other medical treatment and regimen; Z95.1 Presence of aortocoronary bypass graft; Z95.5 Presence of coronary angioplasty implant and graft; Z82.3 Family history of stroke; Z83.3 Family history of diabetes mellitus; Z82.49 Family history of ischemic heart disease and other diseases of the circulatory system; Z90.49 Acquired absence of other specified parts of digestive tract; Z71.6 Tobacco abuse counseling
CPT/HCPCS: 36415; 71045; 78452; 80053; 80061; 80305; 81003; 82550; 82948; 83036; 83735; 83874; 84100; 84439; 84443; 84484; 85025; 85610; 85730; 93005; 93017; 93880; 96374; A9500; G0378; J1650; J1815; J2405; J2785; J3490

== ENCOUNTER 2019-08-26 12:22 | Inpatient (IN) | payer MEDICARE ==
[~2019-08-26] VITALS: Ht 177.8 cm; Wt 94.1 kg
[~2019-08-26 12:22] MED LIST changes: -ATOR20TA65 PO; +ATOR40TA69 PO; -ISOS30TA6 PO; -LISI-617 PO; -METO25 PO; -PANT40TA25 PO; -PREG75 PO
[2019-08-26 12:40] VITALS: BP 144/87
[2019-08-26] MEDS ORDERED: IOHEXOL 350 MG/ML 100ML INFUS..BTL IV ONE (13:41)
[2019-08-26 13:45] LABS: BASOPHILS % (AUTO) 0.4 % (0.0-5.0); EOSINOPHILS % (AUTO) 2.2 % (0.0-8.0); HEMATOCRIT 46.4 % (42-54); LYMPHOCYTES % (AUTO) 30.5 % (21.0-51.0); MEAN CORPUSCULAR HEMOGLOBIN 30.7 pg (27.0-33.0); MONOCYTES % (AUTO) 6.2 % (3.0-13.0); NEUTROPHILS % (AUTO) 60.5 % (40.0-77.0); PLATELET COUNT (AUTO) 212 K/uL (130-400); RED BLOOD CELL COUNT(AUTO) 4.99 MIL/uL (4.50-6.20); RED CELL DISTRIBUTION WIDTH 13.9 % (11.0-15.5)
[2019-08-26 13:53] LABS: HEMOGLOBIN A1C 10.3 % (4.0-6.0)
[2019-08-26 14:06] LABS: ALANINE AMINOTRANSFERASE 44 U/L (12-78); ALBUMIN 3.6 g/dL (3.5-5.0); AMYLASE 78 U/L (25-115); ASPARTATE AMINOTRANSFERASE 30 U/L (10-37); BILIRUBIN,TOTAL 0.3 mg/dL (0.2-1.0); CARBON DIOXIDE 25 mmol/L (21-32); CHLORIDE 99 mmol/L (101-111); CREATINE KINASE, TOTAL 38 U/L (21-232); CREATININE 0.8 mg/dL (0.5-1.5); GLOMERULAR FILTR. RATE CALC 107 mL/min (>60); GLUCOSE,RANDOM 231 mg/dL (70-105); LIPASE 738 U/L (114-286); MYOGLOBIN 18 ng/mL (10-92); POTASSIUM 3.9 mmol/L (3.5-5.1); SODIUM SERUM 134 mmol/L (136-145); THYROID STIMULATING HORMONE 0.69 uIU/mL (0.36-3.74); TOTAL PROTEIN, SERUM 8.4 g/dL (6.0-8.3); TROPONIN I < 0.04 ng/mL (0.00-0.06); UREA NITROGEN, BLOOD 5 mg/dL (7-18)
[2019-08-26] MEDS ORDERED: GLUCAGON 1MG KIT 1 MG ML IM PRN (16:45)
[2019-08-26] MEDS ORDERED: DIPHENHYDRAMINE HCL 25 MG CAPSULE PO PRN (16:45)
[2019-08-26] MEDS ORDERED: LACTULOSE 20 GM/30 ML UDCUP PO PRN (16:45)
[2019-08-26] MEDS ORDERED: DEXTROSE 50%-WATER 50 ML DISP.SYRIN IV PRN (16:45)
[2019-08-26] MEDS ORDERED: POTASSIUM CHLORIDE 10% ELIXIR 20 MEQ/15 ML UDCUP PO PRN (16:45)
[2019-08-26] MEDS ORDERED: POTASSIUM CHLORIDE 20MEQ/100ML 100 ML IV PRN (16:45)
[2019-08-26] MEDS ORDERED: NITROGLYCERIN 0.4 MG SL TAB SL PRN (16:45)
[2019-08-26] MEDS ORDERED: ACETAMINOPHEN 325 MG TAB PO PRN ×2 (16:45)
[2019-08-26] MEDS ORDERED: IPRATROPIUM/ALBUTEROL SULFATE 3 ML SOLUTION IH PRN (16:45)
[2019-08-26] MEDS ORDERED: LIDOCAINE HCL-MPF 1% 2ML VIAL IJ PRN (16:45)
[2019-08-26] MEDS ORDERED: POTASSIUM CHLORIDE 20 MEQ ERTAB PO PRN (16:45)
[2019-08-26] MEDS ORDERED: ZOLPIDEM TARTRATE 5 MG TAB PO PRN (16:45)
[2019-08-26] MEDS ORDERED: DiphenhydrAMINE HCL 50 MG/ML VIAL IVP PRN (16:45)
[2019-08-26] MEDS ORDERED: GUAIFENESIN SUGAR-FREE 100 MG/5 ML UDCUP PO PRN (16:45)
[2019-08-26] MEDS ORDERED: ONDANSETRON HCL 4 MG/2 ML VIAL IVP PRN (16:45)
[2019-08-26] MEDS ORDERED: MAG HYDROX/AL HYDROX/SIMETH ES 30 ML SUSP UDCUP PO PRN (16:45)
[2019-08-26] MEDS ORDERED: CLONIDINE HCL 0.1 MG TABLET PO PRN (16:45)
[2019-08-26] MEDS: PHARMACY COMMUNICATION MISC SCH (16:45)
[2019-08-26] MEDS ORDERED: CEFTRIAXONE SODIUM 1 GM ONE (17:30)
[2019-08-26] MEDS: NITROGLYCERIN 1GM/1 INCH PACKET TD SCH ×2 (17:36→23:59)
[2019-08-26] MEDS: MORPHINE SULFATE 4 MG/1ML SYG IVP PRN (17:41)
[2019-08-26 18:25] LABS: CREATINE KINASE, TOTAL 42 U/L (21-232); MYOGLOBIN 16 ng/mL (10-92); TROPONIN I < 0.04 ng/mL (0.00-0.06)
[2019-08-26] MEDS: CEFTRIAXONE SODIUM 1 GM IVP SCH (18:40)
[2019-08-26 20:00] VITALS: BP 104/60
[2019-08-26] MEDS: FAMOTIDINE 20MG TAB 20 MG TAB PO SCH (21:00)
[2019-08-26] MEDS ORDERED: FLU VACC QS2019-20 36MOS UP/PF 60 MCG/0.5 ML ML IM SCH (21:00)
[2019-08-26 22:12] LABS: CREATINE KINASE, TOTAL 40 U/L (21-232); MYOGLOBIN 18 ng/mL (10-92); TROPONIN I < 0.04 ng/mL (0.00-0.06)
[2019-08-26] MEDS: ATORVASTATIN CALCIUM 40 MG TABLET PO SCH (22:25)
[2019-08-26] MEDS: AZITHROMYCIN 500MG+NS 250ML 250 ML IV SCH (22:26)
[2019-08-26] MEDS: INSULIN R PO SSI SQ SCH (22:27)
[2019-08-27] VITALS (7 sets, daily range): BP systolic 92–114; BP diastolic 56–70
[2019-08-27] MEDS: MORPHINE SULFATE 4 MG/1ML SYG IVP PRN ×5 (00:45→20:38)
[2019-08-27] MEDS: PHARMACY COMMUNICATION MISC SCH ×2 (00:45→08:45)
[2019-08-27] MEDS: NITROGLYCERIN 1GM/1 INCH PACKET TD SCH (06:15)
[2019-08-27] MEDS: INSULIN R PO SSI SQ SCH ×4 (06:18→20:47)
[2019-08-27] MEDS ORDERED: DOCUSATE SODIUM 100 MG CAP PO PRN (08:30)
[2019-08-27] MEDS: FAMOTIDINE 20MG TAB 20 MG TAB PO SCH ×2 (09:00→20:47)
[2019-08-27] MEDS: ASPIRIN 81 MG EC TAB PO SCH (09:19)
--- NOTE | 2019-08-27 11:42 | NUR ---
INITIAL SW spoke with patient. Patient states he lives with spouse, Cassidy Mercedes [phone]. No home services or DME. Patient states he needs assistance with ADL's but is able to drive. PCP is Dr. Kevin Arellano. Pharmacy is [facility] located on [address] [place] [address] in [place]. DCP is home. Addendum: 08/27/19 at 1145 by LETICIA WAHL SS Amended: Links added.
--- NOTE | 2019-08-27 13:20 | NUR ---
RD NOTIFICATION Pt in isolation precautions at this time. Diet: clear liquids, 75gmccd. Po intake is poor. Pt reports having abdominal pain. Labs reviewed (a1c 10.3, lipase 738). Meds reviewed. Skin is intact. RD recommends to advance diet as tolerated to 75gmccd, low fat Add ensure clear to diet order Monitor po intake and tolerance Monitor labs and BM RD pending nutrition education at this time >will provide via phone due to isolation precautions in place Addendum: 08/27/19 at [address] Amended: Links added.
--- NOTE | 2019-08-27 14:00 | NUR ---
CALL DR. KILGORE THAT THE PATIENT COMPLAINTS ABOUT THE NUMBNESS AND COLD TO THE LEFT HAND. NOTIFIED HIM THAT I CHECKED THE PULSE AND THE CAPILLARY REFILL AND IT WAS ALL NORMAL. HE ORDERED ARTERIAL DOPPLER TO SEE THE CIRCULATION.
[2019-08-27] MEDS: AZITHROMYCIN 500MG+NS 250ML 250 ML IV SCH (18:45)
[2019-08-27] MEDS: CEFTRIAXONE SODIUM 1 GM IVP SCH (18:45)
[2019-08-27] MEDS: ATORVASTATIN CALCIUM 40 MG TABLET PO SCH (20:37)
[2019-08-28 00:33] VITALS: BP 98/60
[2019-08-28] MEDS: PHARMACY COMMUNICATION MISC SCH (00:34)
[2019-08-28 03:40] VITALS: BP 98/61
[2019-08-28 05:23] LABS: MEAN CORPUSCULAR HEMOGLOBIN 29.8 pg (27.0-33.0); MEAN CORPUSCULAR HGB CONC 32.5 g/dL (32.0-36.0); MEAN CORPUSCULAR VOLUME 91.8 fL (79-99); PLATELET COUNT (AUTO) 205 K/uL (130-400); RED BLOOD CELL COUNT(AUTO) 5.23 MIL/uL (4.50-6.20); RED CELL DISTRIBUTION WIDTH 13.4 % (11.0-15.5); WHITE BLOOD COUNT (AUTO) 8.4 K/uL (4.8-10.8)
[2019-08-28 05:42] LABS: CREATININE 0.8 mg/dL (0.5-1.5); POTASSIUM 4.2 mmol/L (3.5-5.1)
[2019-08-28] MEDS: INSULIN R PO SSI SQ SCH ×4 (06:24→21:32)
[2019-08-28 08:00] VITALS: BP 99/56
[2019-08-28] MEDS: FAMOTIDINE 20MG TAB 20 MG TAB PO SCH ×2 (09:00→21:00)
[2019-08-28] MEDS: MORPHINE SULFATE 4 MG/1ML SYG IVP PRN (09:38)
[2019-08-28] MEDS: AMLODIPINE BESYLATE 2.5 MG TAB PO SCH (09:38)
[2019-08-28] MEDS: ASPIRIN 81 MG EC TAB PO SCH (09:38)
[2019-08-28 09:49] LABS: AMYLASE 17 U/L (25-115)
[2019-08-28 10:01] LABS: LIPASE 41 U/L (114-286)
[2019-08-28 12:00] VITALS: BP 109/66
[2019-08-28] MEDS ORDERED: IOHEXOL 350 MG/ML 100ML INFUS..BTL IV ONE (12:34)
[2019-08-28 16:00] VITALS: BP 97/56
[2019-08-28] MEDS: CEFTRIAXONE SODIUM 1 GM IVP SCH (18:06)
[2019-08-28] MEDS: AZITHROMYCIN 500MG+NS 250ML 250 ML IV SCH (18:06)
[2019-08-28 19:40] VITALS: BP 105/65
[2019-08-28] MEDS: ATORVASTATIN CALCIUM 40 MG TABLET PO SCH (21:27)
[2019-08-29] VITALS (7 sets, daily range): BP systolic 94–111; BP diastolic 56–69
[2019-08-29] MEDS: MORPHINE SULFATE 4 MG/1ML SYG IVP PRN ×2 (02:59→06:16)
[2019-08-29] MEDS: INSULIN R PO SSI SQ SCH ×4 (06:07→21:13)
[2019-08-29] MEDS: ASPIRIN 81 MG EC TAB PO SCH (08:45)
[2019-08-29] MEDS: AMLODIPINE BESYLATE 2.5 MG TAB PO SCH (08:46)
[2019-08-29] MEDS: FAMOTIDINE 20MG TAB 20 MG TAB PO SCH (09:00)
[2019-08-29] MEDS: RANITIDINE HCL 15 MG/1 ML PO SCH ×2 (10:29→21:14)
[2019-08-29] MEDS: ACETAMINOPHEN-CODEINE 300/30MG TAB PO PRN ×2 (14:41→22:15)
[2019-08-29] MEDS: CEFTRIAXONE SODIUM 1 GM IVP SCH (17:30)
[2019-08-29] MEDS: AZITHROMYCIN 500MG+NS 250ML 250 ML IV SCH (17:30)
[2019-08-29] MEDS: ATORVASTATIN CALCIUM 40 MG TABLET PO SCH (21:14)
[2019-08-30 04:00] VITALS: BP 98/58
[2019-08-30] MEDS: ACETAMINOPHEN-CODEINE 300/30MG TAB PO PRN ×2 (05:41→16:00)
[2019-08-30] MEDS: INSULIN R PO SSI SQ SCH ×3 (05:59→16:01)
[2019-08-30] MEDS: MORPHINE SULFATE 4 MG/1ML SYG IVP PRN ×3 (06:53→17:18)
[2019-08-30 07:51] VITALS: BP 100/59
[2019-08-30] MEDS ORDERED: NITROGLYCERIN 1GM/1 INCH PACKET TD ONE (07:52)
[2019-08-30] MEDS ORDERED: NITROGLYCERIN 1GM/1 INCH PACKET TD PRN (08:00)
[2019-08-30] MEDS: AMLODIPINE BESYLATE 2.5 MG TAB PO SCH (09:00)
--- NOTE | 2019-08-30 09:09 | NUR ---
CARDIOLOGY RE-CONSULT VAL MIRZA HERE TO RE-EVALUATE PT. VAL STATES THAT THE PATIENT IS OK TO GO HOME. NO FURTHER TESTS ORDERS. ATYPICAL CHEST PAIN TO BE ADDRESSED
--- NOTE | 2019-08-30 09:30 | NUR ---
PATIENT INSIST IN STAYING IN BED ALL DAY. STATED THAT HE CANNOT WALK. PATIENT DOES NOT EVEN WANT TO TRY. ENCOURAGED DEEP BREATHING.
[2019-08-30] MEDS: RANITIDINE HCL 15 MG/1 ML PO SCH ×2 (09:51→20:59)
[2019-08-30] MEDS: ASPIRIN 81 MG EC TAB PO SCH (09:51)
[2019-08-30 10:54] VITALS: BP 99/52
--- NOTE | 2019-08-30 11:31 | NUR ---
RD FOLLOW UP Diet: GI soft/bland. PO intake 0% and has poor appetite. Labs and meds reviewed. Skin intact. RD recommends to add 75gmccd and low fat to diet order Add Glucerna TID due to poor po and appetite Monitor po intake and tolerance
--- NOTE | 2019-08-30 12:25 | NUR ---
CHEST PAIN PATIENT COMPLAINED AGAIN OF CHEST PAIN. FIRST EPISODE AT 0830. PATIENT STATES HE WANTS MORPHINE FOR THE PAIN. PATIENT WATCHING T.V., AAAX3, NO DISTRESS NOTED, VS WNL, NO HYPOXIA OF TELEMETRY EVENTS REPORTED, RHYTHM: SINUS 75. PATIENT STATED HE FEELS SOB AND HE NEEDS OXYGEN. O2 SAT 97%. REASSURED PT THAT HE DOES NOT NEED OXYGEN. WILL CONTINUE TO MONITOR
[2019-08-30 15:41] VITALS: BP 95/54
[2019-08-30] MEDS: CEFTRIAXONE SODIUM 1 GM IVP SCH (16:00)
--- NOTE | 2019-08-30 17:00 | NUR ---
CARDIOLOGY RE-CONSULT DR EAGLE VISITED WITH PATIENT. EXPLAINED HIM ABOUT ALL HIS RESULTS AND GAVE HIM THE REASONS WHY HE BELIEVES HIS CHEST PAIN IS NOT RELATED TO HIS HARD, THAT IT COULD BE RELATED TO HIS MUSCLES, CHEST WALL ETC. PATIENT VERBALIZED UNDERSTANDING. HOWEVER, SHORTLY AFTER DR EAGLE LEFT, PATIENT CALLED THAT HE HAD MORE QUESTIONS FOR HIM. PATIENT STATED "I WANT HIM TO SIGN A PAPER STATING THAT EVERYTHING IS 100% OK WITH MY HEART AND IF SOMETHING HAPPENS TO ME HE'S GOING TO BE RESPONSIBLE". I ASKED HIM TO VERBALIZED WHAT DR EAGLE JUST EXPLAINED TO HIM A FEW MINUTES AGO, AND PT STATED THAT HE DIDN'T REMEMBER EXACTLY WHAT DR EAGLE SAID. PATIENT INSIST THAT HE NEEDS A HEART CATH, BECAUSE ACCORDING TO WHAT HE KNOWS, THAT'S THE ONLY WAY TO KNOW FOR SURE IF THERE IS SOMETHING WRONG WITH HIS HEART. I EDUCATED PATIENT ON S/S OF IA, TEST RESULTS, AND LIFE STYLE CHANGES. REINFORCEMENT NEEDED, NOT ABLE TO DETERMINE IF PATIENT COMPLETELY UNDERSTANDS.
[2019-08-30] MEDS: AZITHROMYCIN 500MG+NS 250ML 250 ML IV SCH (18:31)
[2019-08-30 19:00] VITALS: BP 96/57
[2019-08-30] MEDS: ATORVASTATIN CALCIUM 40 MG TABLET PO SCH (20:59)
[2019-08-30 23:00] VITALS: BP_SYST 161; BP_SYST 96; BP_DIAS 58; BP_DIAS 85
[2019-08-31] MEDS: INSULIN R PO SSI SQ SCH ×2 (00:32→06:49)
[2019-08-31 03:00] VITALS: BP 105/60
[2019-08-31 04:31] LABS: HEMATOCRIT 44.3 % (42-54); MEAN CORPUSCULAR HEMOGLOBIN 30.5 pg (27.0-33.0); MEAN CORPUSCULAR HGB CONC 33.4 g/dL (32.0-36.0); MEAN CORPUSCULAR VOLUME 91.3 fL (79-99); PLATELET COUNT (AUTO) 221 K/uL (130-400); RED BLOOD CELL COUNT(AUTO) 4.85 MIL/uL (4.50-6.20); RED CELL DISTRIBUTION WIDTH 13.1 % (11.0-15.5); WHITE BLOOD COUNT (AUTO) 7.2 K/uL (4.8-10.8)
[2019-08-31 04:46] LABS: CREATININE 0.9 mg/dL (0.5-1.5); POTASSIUM 3.9 mmol/L (3.5-5.1)
--- NOTE | 2019-08-31 07:50 | NUR ---
DR. KILGORE HERE ,AND ASSESS PT . DISCHARGE HOME, AND TO FOLLOWUP WITH APPT, WITH DR. KILGORE AND DR. EAGLE . AT PRESENT DENIES ANY CHEST PAIN, OR SOB. TELE MONITOR ON . NSR . HEART 70'S
[2019-08-31 08:00] VITALS: BP 95/59
[2019-08-31] MEDS: RANITIDINE HCL 15 MG/1 ML PO SCH (09:23)
[2019-08-31] MEDS: ASPIRIN 81 MG EC TAB PO SCH (09:23)
[2019-08-31] MEDS: AMLODIPINE BESYLATE 2.5 MG TAB PO SCH (09:23)
--- NOTE | 2019-08-31 10:15 | NUR ---
DISCHARGE HOME SUMMARY WAS REVIEW. PT TO SEE DR. KILGORE THIS COMING FRIDAY AT HIS OFFICE FOR HOME MEDICATION REVIEW . AT PRESENT CONT WITH HOME MEDICATION . PT WAS ALSO GIVEN APPT TO SEE DR. EAGLE FOR HIS CARDIAC CARE, PT AWARE OF FOLLLOWUP SETUP. SL TO HIS LFA, . . NOTED NO REDNESS TO SITE . OR HEMATOMA. SM PRESSURE DRSSuzy APPLICIATION ON. QUESTION REVIEW. .
== END 2019-08-31 10:15 | disposition home or self-care (01) | DRG 203 ==
LOC: EDH 12:22 → EDHIP 12:23 → 3DH 12:52
PROVIDERS: ADMIT Family Medicine; ATTEND Family Medicine
PROC: 3E0234Z Introduction of Serum, Toxoid and Vaccine into Muscle, Percutaneous Approach (ICD-10-PCS; principal; 2019-08-26)
DX: J20.9 Acute bronchitis, unspecified (principal); E78.5 Hyperlipidemia, unspecified; E11.9 Type 2 diabetes mellitus without complications; F17.210 Nicotine dependence, cigarettes, uncomplicated; I10 Essential (primary) hypertension; I25.10 Atherosclerotic heart disease of native coronary artery without angina pectoris; Z95.1 Presence of aortocoronary bypass graft; Z86.74 Personal history of sudden cardiac arrest; Z23 Encounter for immunization; R07.9 Chest pain, unspecified
CPT/HCPCS: 36415; 71045; 71275; 74178; 80048; 80053; 82150; 82550; 82948; 83036; 83690; 83874; 84443; 84484; 85025; 85027; 87633; 93005; 93306; 93356; 93931; 94664; G0378; J0456; J0696; J1815; J2270; J2405; Q9967

== ENCOUNTER 2019-09-05 04:05 | Emergency (ER) | payer MEDICARE ==
[2019-09-05] MEDS ORDERED: KETOROLAC TROMETHAMINE 60 MG/2 ML VIAL ONE (04:58)
[2019-09-05] MEDS ORDERED: LIDOCAINE 5% TOPICAL PATCH TP ONE (04:59)
== END 2019-09-05 05:36 | disposition home or self-care (01) ==
LOC: EDH 04:05
DX: R07.89 Other chest pain (principal); I25.10 Atherosclerotic heart disease of native coronary artery without angina pectoris; E11.9 Type 2 diabetes mellitus without complications; I10 Essential (primary) hypertension; G89.29 Other chronic pain; E78.5 Hyperlipidemia, unspecified; Z90.49 Acquired absence of other specified parts of digestive tract; Z72.0 Tobacco use
CPT/HCPCS: 71101; 96372; 99283; J1885

== ENCOUNTER 2019-10-26 07:36 | Day surgery (SDC) | payer MEDICARE ==
[2019-10-26] VITALS (12 sets, daily range): BP systolic 110–137; BP diastolic 64–73
[~2019-10-26] VITALS: Ht 180.3 cm; Wt 96.7 kg
[2019-10-26 08:33] LABS: BASOPHILS % (AUTO) 0.5 % (0.0-5.0); EOSINOPHILS % (AUTO) 2.2 % (0.0-8.0); HEMATOCRIT 45.9 % (42-54); LYMPHOCYTES % (AUTO) 29.6 % (21.0-51.0); MEAN CORPUSCULAR HEMOGLOBIN 29.6 pg (27.0-33.0); MEAN CORPUSCULAR VOLUME 92.5 fL (79-99); MONOCYTES % (AUTO) 6.8 % (3.0-13.0); NEUTROPHILS % (AUTO) 60.4 % (40.0-77.0); PLATELET COUNT (AUTO) 219 K/uL (130-400); RED BLOOD CELL COUNT(AUTO) 4.96 MIL/uL (4.50-6.20); RED CELL DISTRIBUTION WIDTH 14.6 % (11.0-15.5); WHITE BLOOD COUNT (AUTO) 7.6 K/uL (4.8-10.8)
[2019-10-26 08:38] LABS: APPEARANCE,URINE Clear (CLEAR); BILIRUBIN,URINE Negative (NEGATIVE); COLOR,URINE Yellow (YELLOW); GLUCOSE, URINE (UA) >=1000 mg/dL (NEGATIVE); KETONES,URINE Negative (NEGATIVE); LEUKOCYTE ESTERASE ,URINE Negative (NEGATIVE); NITRATE,URINE Negative (NEGATIVE); OCCULT BLOOD,URINE Negative (NEGATIVE); PH,URINE 5.5 (5.0-8.0); PROTEIN,URINE Negative (NEGATIVE)
[2019-10-26 08:52] LABS: INR 0.89 (0.85-1.15); PARTIAL THROMBOPLASTIN TIME 28.2 SEC (26.3-35.5); PROTHROMBIN TIME 9.7 SEC (9.6-11.6)
[2019-10-26 08:54] LABS: CREATININE 0.8 mg/dL (0.5-1.5); POTASSIUM 4.3 mmol/L (3.5-5.1)
[2019-10-26 08:57] LABS: BACTERIA,URINE Rare /HPF (None Seen); RBC,URINE 0-1 /HPF (0-1); WBC,URINE 0-1 /HPF (0-1)
[2019-10-26] MEDS ORDERED: GLIP5TAB11 PO (09:10)
--- NOTE | 2019-10-26 09:45 | NUR ---
REPORTED BG [address] EAGLE, NEW ORDER FOR INSULIN AND ORDERS TO RECHECK BG IN 1 HOUR.
[2019-10-26] MEDS ORDERED: INSULIN HUMULIN R 100 UNIT/ML 3ML ONE (09:58)
[2019-10-26] MEDS ORDERED: INSULIN HUMULIN R 100 UNIT/ML 3ML SQ SCH ×2 (10:00→16:30)
[2019-10-26] MEDS ORDERED: HEPARIN SODIUM 1000UNIT/ML 10ML VIAL ONE (11:37)
[2019-10-26] MEDS ORDERED: NITROGLYCERIN 2 MG/VIAL VIAL IV ONE (11:37)
[2019-10-26] MEDS ORDERED: IOHEXOL-350 50ML VIAL IV ONE (11:37)
[2019-10-26] MEDS ORDERED: SODIUM BICARB 50MEQ 50ML VIAL ONE (11:37)
[2019-10-26] MEDS ORDERED: LIDOCAINE HCL 2% 20ML ONE (11:38)
[2019-10-26] MEDS ORDERED: IOHEXOL 350 MG/ML 100ML INFUS..BTL IV ONE (11:38)
[2019-10-26] MEDS ORDERED: NICARDIPINE HCL 25 MG/10 ML ML IV ONE (11:41)
[2019-10-26] MEDS ORDERED: FENTANYL CITRATE PF 50 MCG/1 ML 2ML VIAL ONE (11:58)
[2019-10-26] MEDS ORDERED: MIDAZOLAM HCL 1 MG/ML 2ML VIAL ONE (11:58)
[2019-10-26] MEDS ORDERED: BIVALIRUDIN 250 MG/VIAL IV ONE (12:45)
[2019-10-26] MEDS ORDERED: TICAGRELOR 90 MG TABLET ONE (12:49)
[2019-10-26] MEDS ORDERED: ASPIRIN 325MG EC TAB 325 MG TABLET.DR PO ONE (12:49)
[2019-10-26] MEDS ORDERED: TICAGRELOR 90 MG TABLET PO SCH (14:09)
[2019-10-26] MEDS ORDERED: GLUCAGON 1MG KIT 1 MG ML IM PRN (15:00)
[2019-10-26] MEDS ORDERED: DEXTROSE 50%-WATER 50 ML DISP.SYRIN IV PRN (15:00)
[2019-10-26] MEDS ORDERED: SODIUM CHLORIDE 0.9% 1000ML 1,000 ML IV SCH (15:45)
--- NOTE | 2019-10-26 15:52 | NUR ---
chest pain pt c/o mold chest pain to left chest wall stabbing that comes and goes same as prior to procedure. v/s stable. will call dr munoz or mr digna christensen Addendum: 10/26/19 at 1606 by PRISCILLA NICOLE RN RN correction to mold = mild
--- NOTE | 2019-10-26 15:57 | NUR ---
report called mr ronak sawyer pa with dr munoz and reported chest pain to left chest wall mild stabbing that comes and goes. also informed pt reported as being same chest pain as prior to procedure. received new orders and he will come see pt
--- NOTE | 2019-10-26 16:03 | NUR ---
ekg ekg done and showed normal sinus rhythm. pt in no distress
--- NOTE | 2019-10-26 16:15 | NUR ---
evaluation dr munoz and mr sawyer here to evaluate pt and reviewed ekg. no new orders pt to go home as previously ordered and follow up at office. pt voiced understanding
--- NOTE | 2019-10-26 16:30 | NUR ---
discharge instructions reviewed medications with pt and spouse. informed to hold metformin until tomorrow and start new meds as ordered by dr munoz. stressed on the importance of taking brilinta as ordered and to start tomorrow. also informed on asa and jardiance. both voiced understanding. if any questions informed to call md office
--- NOTE | 2019-10-26 18:15 | NUR ---
PT complaining of some right leg pain. Pt's leg assessed, pulse present with doppler, no color changes noted. Right cath groin site examined. Site soft s any evidence of hematoma/bleeding. Pt encouraged to reposition leg as it may be cramping up from the same position. Pt concerned that site may bleed as during a previous experience. Reinforced to patient to avoid heavy lifting, nothing over 5 lbs for 5 days, excessive bending, or squatting. Pt instructed to take it easy over the next week. Instructed pt to call 911 if bleeding was to occur.
[2019-10-26] MEDS ORDERED: SODIUM CHLORIDE 0.9% 10 ML VIAL IVP PRN (19:00)
--- NOTE | 2019-10-26 19:15 | NUR ---
Pt discharged home tolerating fluids/solids, ambulating. Pt received a total of 850 cc of NS via IV. Denies any nausea or dizziness. Pt reminded of routine and emergency care of right groin cath site. Pt reminded of the importance of following his medication regime and the importance of taking his Brilinta and Aspirin. Pt denied any further questions at this time.
[2019-10-27] MEDS ORDERED: ASPIRIN 81MG TAB.CHEW PO SCH (09:00)
== END 2019-10-26 19:15 | disposition home or self-care (01) ==
LOC: DAH 07:36 → CLH 07:36
PROVIDERS: ATTEND Internal Medicine Cardiovascular Disease
DX: I25.119 Atherosclerotic heart disease of native coronary artery with unspecified angina pectoris (principal); I10 Essential (primary) hypertension; E78.5 Hyperlipidemia, unspecified; E11.9 Type 2 diabetes mellitus without complications; G47.33 Obstructive sleep apnea (adult) (pediatric); F17.200 Nicotine dependence, unspecified, uncomplicated; Z79.82 Long term (current) use of aspirin; Z79.4 Long term (current) use of insulin; Z79.899 Other long term (current) drug therapy; Z90.49 Acquired absence of other specified parts of digestive tract; Z98.890 Other specified postprocedural states; Z79.2 Long term (current) use of antibiotics; Z79.01 Long term (current) use of anticoagulants; Z82.49 Family history of ischemic heart disease and other diseases of the circulatory system; Z83.3 Family history of diabetes mellitus; Z82.3 Family history of stroke
CPT/HCPCS: 36415; 71045; 80048; 81001; 82948 ×2; 85025; 85610; 85730; 93005 ×2; 93459; A4215; A4216; A4221; A4222; A4223 ×3; A4606; A4663; C1760; C1769 ×2; C1874; C1887; C1894 ×2; C9600; J0583; J1644; J1815 ×2; J2250; J3010; J3490 ×4; Q9965 ×2; Q9967 ×2; 99156; 99157

== ENCOUNTER 2019-10-27 14:31 | Emergency (ER) | payer MEDICARE ==
[~2019-10-27 14:31] MED LIST changes: -XALA2.5OS OD
[2019-10-27 15:12] LABS: BASOPHILS % (AUTO) 0.7 % (0.0-5.0); EOSINOPHILS % (AUTO) 2.5 % (0.0-8.0); LYMPHOCYTES % (AUTO) 27.3 % (21.0-51.0); MEAN CORPUSCULAR HEMOGLOBIN 30.1 pg (27.0-33.0); MEAN CORPUSCULAR HGB CONC 33.3 g/dL (32.0-36.0); MEAN CORPUSCULAR VOLUME 90.4 fL (79-99); MONOCYTES % (AUTO) 5.7 % (3.0-13.0); NEUTROPHILS % (AUTO) 63.4 % (40.0-77.0); PLATELET COUNT (AUTO) 225 K/uL (130-400); RED BLOOD CELL COUNT(AUTO) 4.98 MIL/uL (4.50-6.20); RED CELL DISTRIBUTION WIDTH 14.5 % (11.0-15.5)
[2019-10-27 15:24] LABS: INR 0.88 (0.85-1.15); PARTIAL THROMBOPLASTIN TIME 27.8 SEC (26.3-35.5); PROTHROMBIN TIME 9.6 SEC (9.6-11.6)
[2019-10-27 15:27] LABS: CREATININE 0.8 mg/dL (0.5-1.5); POTASSIUM 4.1 mmol/L (3.5-5.1)
[2019-10-27 15:31] LABS: ALBUMIN 3.4 g/dL (3.5-5.0); BILIRUBIN,TOTAL 0.5 mg/dL (0.2-1.0); TOTAL PROTEIN, SERUM 8.3 g/dL (6.0-8.3)
[2019-10-27] MEDS ORDERED: ASPIRIN 325 MG TABLET ONE (16:05)
[2019-10-27] MEDS ORDERED: MORPHINE SULFATE 2 MG/ML 1ML SYG ONE (17:50)
[2019-10-27 20:34] LABS: HEMATOCRIT 43.6 % (42-54)
[2019-10-27] MEDS ORDERED: ACETAMINOPHEN 325 MG TAB ONE (21:18)
== END 2019-10-27 22:25 | disposition home or self-care (01) ==
LOC: EDH 14:31
DX: R07.89 Other chest pain (principal); M79.605 Pain in left leg; M79.604 Pain in right leg; R20.0 Anesthesia of skin; I25.10 Atherosclerotic heart disease of native coronary artery without angina pectoris; E78.5 Hyperlipidemia, unspecified; E11.40 Type 2 diabetes mellitus with diabetic neuropathy, unspecified; I10 Essential (primary) hypertension; Z90.49 Acquired absence of other specified parts of digestive tract
CPT/HCPCS: 36415; 71045; 76882; 80053; 82550; 84484; 85014; 85018; 85025; 85378; 85610; 85730; 93005; 96374

== ENCOUNTER 2019-10-28 11:57 | Emergency (ER) | payer MEDICARE ==
[2019-10-28] MEDS ORDERED: ASPIRIN 325 MG TABLET ONE (12:48)
== END 2019-10-28 17:08 | disposition home or self-care (01) ==
LOC: EDH 11:57
DX: R07.89 Other chest pain (principal); I25.10 Atherosclerotic heart disease of native coronary artery without angina pectoris; E11.9 Type 2 diabetes mellitus without complications; E78.5 Hyperlipidemia, unspecified; I10 Essential (primary) hypertension; Z90.49 Acquired absence of other specified parts of digestive tract; Z72.0 Tobacco use; G89.29 Other chronic pain

== ENCOUNTER 2019-10-29 13:13 | Observation (INO) | payer MEDICARE ==
[~2019-10-29] VITALS: Ht 177.8 cm; Wt 101.9 kg
[2019-10-29] MEDS ORDERED: SODIUM CHLORIDE 0.9% 1000ML 1,000 ML IV SCH (13:45)
[2019-10-29 13:47] LABS: BASOPHILS % (AUTO) 0.4 % (0.0-5.0); EOSINOPHILS % (AUTO) 3.7 % (0.0-8.0); HEMATOCRIT 42.9 % (42-54); LYMPHOCYTES % (AUTO) 24.8 % (21.0-51.0); MEAN CORPUSCULAR HEMOGLOBIN 30.1 pg (27.0-33.0); MEAN CORPUSCULAR HGB CONC 33.1 g/dL (32.0-36.0); MEAN CORPUSCULAR VOLUME 91.1 fL (79-99); MONOCYTES % (AUTO) 5.6 % (3.0-13.0); NEUTROPHILS % (AUTO) 65.1 % (40.0-77.0); PLATELET COUNT (AUTO) 202 K/uL (130-400); RED BLOOD CELL COUNT(AUTO) 4.71 MIL/uL (4.50-6.20); RED CELL DISTRIBUTION WIDTH 14.3 % (11.0-15.5); WHITE BLOOD COUNT (AUTO) 10.2 K/uL (4.8-10.8)
[2019-10-29 14:18] LABS: CREATININE 0.8 mg/dL (0.5-1.5); POTASSIUM 3.8 mmol/L (3.5-5.1)
[2019-10-29 14:32] LABS: CREATINE KINASE, TOTAL 40 U/L (21-232); MYOGLOBIN 20 ng/mL (10-92); TROPONIN I < 0.04 ng/mL (0.00-0.06)
[2019-10-29] MEDS ORDERED: ONDANSETRON HCL 4 MG/2 ML VIAL ONE (14:42)
[2019-10-29] MEDS ORDERED: POTASSIUM CHLORIDE 10% ELIXIR 20 MEQ/15 ML UDCUP PO PRN (14:45)
[2019-10-29] MEDS ORDERED: ONDANSETRON HCL 4 MG/2 ML VIAL IVP PRN (14:45)
[2019-10-29] MEDS ORDERED: DEXTROSE 50%-WATER 50 ML DISP.SYRIN IV PRN (14:45)
[2019-10-29] MEDS ORDERED: DIPHENHYDRAMINE HCL 25 MG CAPSULE PO PRN (14:45)
[2019-10-29] MEDS ORDERED: GUAIFENESIN-DM 200/20 MG 10 ML PO PRN (14:45)
[2019-10-29] MEDS ORDERED: POTASSIUM CHLORIDE 20MEQ/100ML 100 ML IV PRN (14:45)
[2019-10-29] MEDS ORDERED: LIDOCAINE HCL-MPF 1% 2ML VIAL IJ PRN (14:45)
[2019-10-29] MEDS ORDERED: ACETAMINOPHEN 325 MG TAB PO PRN ×2 (14:45)
[2019-10-29] MEDS ORDERED: POTASSIUM CHLORIDE 20 MEQ ERTAB PO PRN (14:45)
[2019-10-29] MEDS ORDERED: GLUCAGON 1MG KIT 1 MG ML IM PRN (14:45)
[2019-10-29] MEDS ORDERED: NITROGLYCERIN 0.4 MG SL TAB SL PRN (14:45)
[2019-10-29] MEDS ORDERED: ZOLPIDEM TARTRATE 5 MG TAB PO PRN (14:45)
[2019-10-29] MEDS ORDERED: MAG HYDROX/AL HYDROX/SIMETH ES 30 ML SUSP UDCUP PO PRN (14:45)
[2019-10-29] MEDS ORDERED: DiphenhydrAMINE HCL 50 MG/ML VIAL IVP PRN (14:45)
[2019-10-29] MEDS ORDERED: CLONIDINE HCL 0.1 MG TABLET PO PRN (14:45)
[2019-10-29] MEDS ORDERED: SODIUM CHLORIDE 0.9% 1000ML 1,000 ML IV ONE (17:30)
[2019-10-29] MEDS ORDERED: MORPHINE SULFATE 4 MG/1ML SYG ONE (17:40)
[2019-10-29 18:45] VITALS: BP 108/66
[2019-10-29 19:55] LABS: CREATINE KINASE, TOTAL 34 U/L (21-232); MYOGLOBIN 16 ng/mL (10-92); TROPONIN I < 0.04 ng/mL (0.00-0.06)
[2019-10-29] MEDS: INSULIN R PO SSI SQ SCH (20:54)
[2019-10-29] MEDS: FAMOTIDINE 20MG TAB 20 MG TAB PO SCH (20:56)
[2019-10-29 23:03] VITALS: BP 108/67
[2019-10-29] MEDS: NITROGLYCERIN 1GM/1 INCH PACKET TD SCH (23:03)
[2019-10-29 23:24] LABS: CREATINE KINASE, TOTAL 30 U/L (21-232); MYOGLOBIN 13 ng/mL (10-92); TROPONIN I < 0.04 ng/mL (0.00-0.06)
[2019-10-30] MEDS: MORPHINE SULFATE 4 MG/1ML SYG IVP PRN ×2 (01:16→08:55)
[2019-10-30 03:32] VITALS: BP 97/64
[2019-10-30] MEDS: INSULIN R PO SSI SQ SCH ×4 (06:26→20:52)
[2019-10-30] MEDS: NITROGLYCERIN 1GM/1 INCH PACKET TD SCH ×3 (06:35→23:16)
[2019-10-30 08:00] VITALS: BP 101/62
[2019-10-30] MEDS: FAMOTIDINE 20MG TAB 20 MG TAB PO SCH ×2 (08:54→20:53)
[2019-10-30] MEDS ORDERED: METF-446 PO (10:59)
[2019-10-30] MEDS ORDERED: TICA90TA PO (10:59)
[2019-10-30] MEDS ORDERED: GLIP10TA9 PO (10:59)
[2019-10-30] MEDS ORDERED: EMPA10TA PO (10:59)
[2019-10-30] MEDS ORDERED: NITROGLYCERIN 0.4 MG SL TAB SL PRN (11:15)
[2019-10-30 11:49] VITALS: BP 101/65
[2019-10-30] MEDS ORDERED: TRAM50TA4 PO (12:36)
[2019-10-30] MEDS: TRAMADOL HCL 50 MG TABLET PO PRN ×3 (13:09→23:16)
[2019-10-30] MEDS: TICAGRELOR 90 MG TABLET PO SCH ×2 (13:09→20:54)
[2019-10-30] MEDS: ASPIRIN 81 MG EC TAB PO SCH (13:09)
[2019-10-30] MEDS ORDERED: METOPROLOL SUCCINATE 50 MG TAB.SR.24H PO SCH (15:15)
[2019-10-30 16:00] VITALS: BP 123/66
[2019-10-30] MEDS: METFORMIN HCL 500 MG TABLET PO SCH (18:09)
[2019-10-30 19:39] VITALS: BP 102/61
[2019-10-30] MEDS: GLIPIZIDE 5 MG TABLET PO SCH (20:54)
[2019-10-30] MEDS ORDERED: ATORVASTATIN CALCIUM 40 MG TABLET PO SCH (21:00)
[2019-10-30] MEDS ORDERED: TICAGRELOR 90 MG TABLET PO SCH (21:00)
[2019-10-30 23:52] VITALS: BP 99/63
[2019-10-31 03:51] VITALS: BP 107/73
[2019-10-31] MEDS: INSULIN R PO SSI SQ SCH ×2 (05:34→11:30)
[2019-10-31] MEDS: TRAMADOL HCL 50 MG TABLET PO PRN ×2 (06:28→12:25)
[2019-10-31] MEDS: NITROGLYCERIN 1GM/1 INCH PACKET TD SCH (06:28)
[2019-10-31 08:00] VITALS: BP 109/69
[2019-10-31] MEDS ORDERED: METOPROLOL SUCCINATE 50 MG TAB.SR.24H PO SCH (09:00)
[2019-10-31] MEDS ORDERED: ASPIRIN 81 MG EC TAB PO SCH (09:00)
[2019-10-31] MEDS ORDERED: **HM** JARDIANCE 10MG PO SCH (09:00)
[2019-10-31] MEDS: FAMOTIDINE 20MG TAB 20 MG TAB PO SCH (10:06)
[2019-10-31] MEDS: GLIPIZIDE 5 MG TABLET PO SCH (10:06)
[2019-10-31] MEDS: TICAGRELOR 90 MG TABLET PO SCH (10:06)
[2019-10-31] MEDS: ASPIRIN 81 MG EC TAB PO SCH (10:06)
[2019-10-31] MEDS: METFORMIN HCL 500 MG TABLET PO SCH (10:08)
[2019-10-31 11:00] VITALS: BP 98/68
--- NOTE | 2019-10-31 13:15 | NUR ---
NOTE PATIENT DISCHARGED HOME AT THIS TIME. VERBALIZED UNDERSTANDING OF HOME MEDS AND NEW PRESCRIPTION. STILL C/O LEFT CHEST PAIN. WAS SEEN BY DR GRANT BEFORE HE LEFT AND WAS REASSURED THAT HE IS NOT HAVING ANY SORT OF CARDIAC PAIN. TROPONINS WERE NEGATIVE AND TELEMETRY NEGATIVE WELL. NO OTHER PROBLEMS VOICED AT THIS TIME.
== END 2019-10-31 15:48 | disposition home or self-care (01) ==
LOC: EDH 13:13 → EDHIP 13:14 → 3DH 18:36
PROVIDERS: ADMIT Family Medicine; ATTEND Family Medicine
DX: R07.89 Other chest pain (principal); S30.1XXA Contusion of abdominal wall, initial encounter; I10 Essential (primary) hypertension; E78.5 Hyperlipidemia, unspecified; I25.10 Atherosclerotic heart disease of native coronary artery without angina pectoris; E11.40 Type 2 diabetes mellitus with diabetic neuropathy, unspecified; E11.65 Type 2 diabetes mellitus with hyperglycemia; Z87.891 Personal history of nicotine dependence; Z95.1 Presence of aortocoronary bypass graft; Z95.5 Presence of coronary angioplasty implant and graft; Z90.49 Acquired absence of other specified parts of digestive tract; X58.XXXA Exposure to other specified factors, initial encounter; Y93.89 Activity, other specified; Y92.89 Other specified places as the place of occurrence of the external cause; Y99.8 Other external cause status
CPT/HCPCS: 36415; 71045; 76882; 80048; 82550 ×3; 82948 ×7; 83874 ×3; 84484 ×3; 85025; 93005; 93926; 93971; 96374; 96375; 96376; 99285; G0378 ×12; J2270 ×3; J2405 ×2; J7030

== ENCOUNTER 2019-11-11 22:32 | Emergency (ER) | payer MEDICARE ==
[~2019-11-11 22:32] MED LIST changes: +EMPA10TA PO; +GLIP10TA9 PO; -GLIP5TAB11 PO; -METF-444 PO; +METF-446 PO; +TICA90TA PO; +TRAM50TA4 PO
[2019-11-11 22:47] LABS: BASOPHILS % (AUTO) 0.3 % (0.0-5.0); EOSINOPHILS % (AUTO) 4.4 % (0.0-8.0); HEMATOCRIT 44.4 % (42-54); LYMPHOCYTES % (AUTO) 21.8 % (21.0-51.0); MEAN CORPUSCULAR HEMOGLOBIN 30.5 pg (27.0-33.0); MEAN CORPUSCULAR HGB CONC 33.1 g/dL (32.0-36.0); MEAN CORPUSCULAR VOLUME 92.1 fL (79-99); NEUTROPHILS % (AUTO) 67.1 % (40.0-77.0); PLATELET COUNT (AUTO) 249 K/uL (130-400); RED BLOOD CELL COUNT(AUTO) 4.82 MIL/uL (4.50-6.20); RED CELL DISTRIBUTION WIDTH 14.3 % (11.0-15.5)
[2019-11-11 22:58] LABS: CREATININE 0.8 mg/dL (0.5-1.5); POTASSIUM 4.3 mmol/L (3.5-5.1)
[2019-11-11] MEDS ORDERED: ASPIRIN 325 MG TABLET ONE (22:58)
[2019-11-11] MEDS ORDERED: NITROGLYCERIN 0.4 MG SL TAB SL ONE (22:59)
[2019-11-11 23:02] LABS: ALBUMIN 3.3 g/dL (3.5-5.0); BILIRUBIN,TOTAL 0.3 mg/dL (0.2-1.0); INR 0.88 (0.85-1.15); PARTIAL THROMBOPLASTIN TIME 28.5 SEC (26.3-35.5); PROTHROMBIN TIME 9.5 SEC (9.6-11.6)
== END 2019-11-12 02:53 | disposition home or self-care (01) ==
LOC: EDH 22:32
DX: R07.89 Other chest pain (principal); E11.9 Type 2 diabetes mellitus without complications; I25.10 Atherosclerotic heart disease of native coronary artery without angina pectoris; I10 Essential (primary) hypertension; E78.5 Hyperlipidemia, unspecified; G89.29 Other chronic pain; Z90.49 Acquired absence of other specified parts of digestive tract
CPT/HCPCS: 36415; 71045; 80053; 82550; 82948; 84484; 85025; 85610; 85730; 93005

== ENCOUNTER 2019-11-24 12:51 | Emergency (ER) | payer MEDICARE ==
[2019-11-24 14:20] LABS: BASOPHILS % (AUTO) 0.7 % (0.0-5.0); EOSINOPHILS % (AUTO) 4.6 % (0.0-8.0); HEMATOCRIT 44.7 % (42-54); LYMPHOCYTES % (AUTO) 30.4 % (21.0-51.0); MEAN CORPUSCULAR HEMOGLOBIN 30.5 pg (27.0-33.0); MEAN CORPUSCULAR HGB CONC 33.6 g/dL (32.0-36.0); MONOCYTES % (AUTO) 4.9 % (3.0-13.0); PLATELET COUNT (AUTO) 273 K/uL (130-400); RED BLOOD CELL COUNT(AUTO) 4.91 MIL/uL (4.50-6.20); RED CELL DISTRIBUTION WIDTH 14.5 % (11.0-15.5); WHITE BLOOD COUNT (AUTO) 8.6 K/uL (4.8-10.8)
[2019-11-24 14:29] LABS: CREATININE 0.8 mg/dL (0.5-1.5); POTASSIUM 3.6 mmol/L (3.5-5.1)
[2019-11-24 14:31] LABS: INR 0.9 (0.85-1.15); PARTIAL THROMBOPLASTIN TIME 29.2 SEC (26.3-35.5); PROTHROMBIN TIME 9.8 SEC (9.6-11.6)
[2019-11-24 14:34] LABS: ALBUMIN 3.5 g/dL (3.5-5.0); BILIRUBIN,TOTAL 0.3 mg/dL (0.2-1.0); TOTAL PROTEIN, SERUM 8.1 g/dL (6.0-8.3)
== END 2019-11-24 14:55 | disposition home or self-care (01) ==
LOC: EDH 12:51
DX: R20.2 Paresthesia of skin (principal); I10 Essential (primary) hypertension; E78.5 Hyperlipidemia, unspecified; E11.40 Type 2 diabetes mellitus with diabetic neuropathy, unspecified; I25.10 Atherosclerotic heart disease of native coronary artery without angina pectoris; Z90.49 Acquired absence of other specified parts of digestive tract; Z95.1 Presence of aortocoronary bypass graft; Z72.0 Tobacco use
CPT/HCPCS: 36415; 70450; 80053; 82948; 85025; 85610; 85730

== ENCOUNTER 2019-12-23 00:17 | Emergency (ER) | payer MEDICARE ==
[2019-12-23 00:46] LABS: BASOPHILS % (AUTO) 0.5 % (0.0-5.0); EOSINOPHILS % (AUTO) 4.3 % (0.0-8.0); HEMATOCRIT 45.6 % (42-54); LYMPHOCYTES % (AUTO) 32.6 % (21.0-51.0); MEAN CORPUSCULAR HEMOGLOBIN 30.3 pg (27.0-33.0); MEAN CORPUSCULAR HGB CONC 33.1 g/dL (32.0-36.0); MEAN CORPUSCULAR VOLUME 91.6 fL (79-99); NEUTROPHILS % (AUTO) 54.2 % (40.0-77.0); PLATELET COUNT (AUTO) 254 K/uL (130-400); RED BLOOD CELL COUNT(AUTO) 4.98 MIL/uL (4.50-6.20); RED CELL DISTRIBUTION WIDTH 14.6 % (11.0-15.5); WHITE BLOOD COUNT (AUTO) 8.1 K/uL (4.8-10.8)
[2019-12-23 00:55] LABS: CREATININE 0.8 mg/dL (0.5-1.5); POTASSIUM 4.3 mmol/L (3.5-5.1)
[2019-12-23 01:00] LABS: ALBUMIN 3.2 g/dL (3.5-5.0); BILIRUBIN,TOTAL 0.4 mg/dL (0.2-1.0); TOTAL PROTEIN, SERUM 8.3 g/dL (6.0-8.3)
[2019-12-23 01:06] LABS: INR 0.89 (0.85-1.15); PARTIAL THROMBOPLASTIN TIME 27.2 SEC (26.3-35.5); PROTHROMBIN TIME 9.7 SEC (9.6-11.6)
[2019-12-23 01:10] LABS: B-TYPE NATRIURETIC PEPTIDE 41 pg/mL (0-100)
[2019-12-23] MEDS ORDERED: KETOROLAC TROMETHAMINE 15MG/ML ONE (02:00)
[2019-12-23] MEDS ORDERED: ONDANSETRON HCL 4 MG/2 ML VIAL ONE (02:00)
[2019-12-23] MEDS ORDERED: ORPHENADRINE CITRATE 30 MG/ML ML ONE (02:00)
[2019-12-23] MEDS ORDERED: IOHEXOL 350 MG/ML 100ML INFUS..BTL IV ONE (02:02)
[2019-12-23 03:59] LABS: ABG BASE EXCESS 1.1 mmol/L (-2.0-3.0); ABG HCO3 25.2 mmol/L (21.0-28.0); ABG OXYGEN SATURATION 97.8 % (95.0-99.0); ABG PCO2 39 mmHg (35-48)
== END 2019-12-23 04:57 | disposition home or self-care (01) ==
LOC: EDH 00:17
DX: B34.9 Viral infection, unspecified (principal); R07.89 Other chest pain; Z20.828 Contact with and (suspected) exposure to other viral communicable diseases; I25.10 Atherosclerotic heart disease of native coronary artery without angina pectoris; E11.9 Type 2 diabetes mellitus without complications; E78.5 Hyperlipidemia, unspecified; I10 Essential (primary) hypertension; Z90.49 Acquired absence of other specified parts of digestive tract
CPT/HCPCS: 36415; 36600; 71045; 71275; 80053; 82550; 82803; 83690; 83880; 84484; 85025; 85610; 85730; 93005; 96374; 96375; 99285; J1885; J2360; J2405; Q9967; U0003

== ENCOUNTER 2020-01-04 22:05 | Observation (INO) | payer MEDICARE ==
[~2020-01-04] VITALS: Ht 177.8 cm; Wt 96.1 kg
[2020-01-04] MEDS ORDERED: ASPIRIN 325 MG TABLET ONE (22:28)
[2020-01-04 22:41] LABS: BASOPHILS % (AUTO) 0.7 % (0.0-5.0); EOSINOPHILS % (AUTO) 3.4 % (0.0-8.0); HEMATOCRIT 46.7 % (42-54); LYMPHOCYTES % (AUTO) 25.9 % (21.0-51.0); MEAN CORPUSCULAR HGB CONC 32.3 g/dL (32.0-36.0); MEAN CORPUSCULAR VOLUME 92.7 fL (79-99); MONOCYTES % (AUTO) 6.9 % (3.0-13.0); NEUTROPHILS % (AUTO) 62.6 % (40.0-77.0); PLATELET COUNT (AUTO) 258 K/uL (130-400); RED BLOOD CELL COUNT(AUTO) 5.04 MIL/uL (4.50-6.20); RED CELL DISTRIBUTION WIDTH 14.7 % (11.0-15.5)
[2020-01-04 22:51] LABS: CREATININE 0.7 mg/dL (0.5-1.5)
[2020-01-04 22:53] LABS: INR 0.87 (0.85-1.15); PARTIAL THROMBOPLASTIN TIME 29.4 SEC (26.3-35.5); PROTHROMBIN TIME 9.4 SEC (9.6-11.6)
[2020-01-04 22:55] LABS: ALBUMIN 3.7 g/dL (3.5-5.0); BILIRUBIN,TOTAL 0.5 mg/dL (0.2-1.0); TOTAL PROTEIN, SERUM 8.5 g/dL (6.0-8.3)
[2020-01-04] MEDS ORDERED: ONDANSETRON HCL 4 MG/2 ML VIAL ONE (23:25)
[2020-01-04] MEDS ORDERED: MORPHINE SULFATE 4 MG/1ML SYG ONE (23:26)
[2020-01-05] MEDS: SODIUM CHLORIDE 0.9% 1000ML 1,000 ML IV SCH ×3 (01:33→20:02)
[2020-01-05] MEDS ORDERED: NITROGLYCERIN 1GM/1 INCH PACKET TD SCH (01:45)
[2020-01-05] MEDS ORDERED: SODIUM CHLORIDE 0.9% 1000ML 1,000 ML IV ONE (02:03)
[2020-01-05] MEDS ORDERED: NITROGLYCERIN 1GM/1 INCH PACKET TD ONE (02:03)
[2020-01-05 02:51] LABS: CREATINE KINASE, TOTAL 51 U/L (21-232); MYOGLOBIN 19 ng/mL (10-92); TROPONIN I < 0.04 ng/mL (0.00-0.06)
[2020-01-05 04:00] VITALS: BP 129/74
[2020-01-05 06:04] LABS: CHOLESTEROL 140 mg/dL (<200); HDL CHOLESTEROL 59 mg/dL (29-71); LDL DIRECT 50 mg/dL (0-99); TRIGLYCERIDES 104 mg/dL (30-200)
[2020-01-05 06:18] LABS: HEMOGLOBIN A1C 7.5 % (4.0-6.0)
[2020-01-05] MEDS: INSULIN HUMULIN R 100 UNIT/ML 3ML SQ SCH ×4 (07:30→20:04)
[2020-01-05 07:45] VITALS: BP 113/63
[2020-01-05] MEDS: NITROGLYCERIN 1GM/1 INCH PACKET TD SCH ×4 (08:00→23:56)
[2020-01-05] MEDS: TICAGRELOR 90 MG TABLET PO SCH ×2 (09:35→20:02)
[2020-01-05] MEDS: ASPIRIN 81 MG EC TAB PO SCH (09:36)
[2020-01-05] MEDS: FAMOTIDINE/PF 20 MG/2 ML VIAL IV SCH ×2 (09:36→20:02)
[2020-01-05] MEDS: MORPHINE SULFATE 2 MG/ML 1ML SYG IVP PRN ×3 (09:37→20:15)
[2020-01-05] MEDS: ENOXAPARIN SODIUM 40 MG/0.4 ML SYRINGE SQ SCH (09:39)
[2020-01-05 10:09] LABS: CREATINE KINASE, TOTAL 39 U/L (21-232); MYOGLOBIN 21 ng/mL (10-92); TROPONIN I < 0.04 ng/mL (0.00-0.06)
[2020-01-05] MEDS: NITROGLYCERIN 0.4 MG SL TAB SL PRN ×3 (10:48→12:40)
[2020-01-05 11:00] VITALS: BP 107/64
--- NOTE | 2020-01-05 12:45 | NUR ---
pt has had constant chest pain since yesterday he states; on my shift we have given him morphine in the am and he had releif for about 2 hours, he also has on nitro paste applied at about 0600 this am; and we have given him nitro sublingal 3x jacob Addendum: 01/05/20 at 1313 by ROBE QUEZADA RN RN pt has received nitro sublingal x3 and is rating his pain level a 2 after the doses; dr Tom and AGER TENDER AJ aware of pt's c/o chest pain and given results of ekg and cardiac enzymes; dr fanny estrada [facility] has been consulted, pending him to come and evaluate. will cont to monitor.
--- NOTE | 2020-01-05 14:00 | NUR ---
Pain Patient diaphoretic with C/O chest pain rated at 5 that radiating to back at this time, Cardiology was consulted this AM, and x2 EKG have been performed this AM, PCP providers are aware, 3 doses of SL Nitrostat and Morphine 2mg IV administered earlier this shift. Will administer another dose of Morphine and continue to monitor
--- NOTE | 2020-01-05 14:48 | NUR ---
DCP CM spoke to pt discussed dc plans. Pt is independent prior to admission, lives at home with spouse. Pt has provider <30hrs/wk, casey, uses [facility] for med. Denies any other equipments/services. Feels safe to go back home, still drives, spouse able to assist with transportation and needs as necessary. DC plan to home once stable. CM to cont to follow up. Addendum: 01/05/20 at 1449 by OSEAS DOYLE LVN CM Amended: Links added.
[2020-01-05 16:00] VITALS: BP 91/58
[2020-01-05] MEDS ORDERED: KETOROLAC TROMETHAMINE 30MG/ML IV SCH (16:00)
[2020-01-05 18:36] LABS: CREATINE KINASE, TOTAL 34 U/L (21-232); MYOGLOBIN 18 ng/mL (10-92); TROPONIN I < 0.04 ng/mL (0.00-0.06)
[2020-01-05 19:00] VITALS: BP 104/59
[2020-01-05] MEDS: ATORVASTATIN CALCIUM 40 MG TABLET PO SCH (20:02)
[2020-01-05] MEDS ORDERED: HYDROMORPHONE HCL 0.5 MG/0.5 ML ML IVP SCH (21:15)
[2020-01-06] VITALS: BP 95/57
[2020-01-06] MEDS: MORPHINE SULFATE 2 MG/ML 1ML SYG IVP PRN ×5 (00:08→19:20)
[2020-01-06] MEDS ORDERED: HYDROMORPHONE HCL 2 MG/ML VIAL ONE (00:10)
[2020-01-06] MEDS: HYDROMORPHONE HCL 2 MG/ML VIAL IVP PRN ×3 (02:44→13:00)
[2020-01-06 04:00] VITALS: BP 94/57
[2020-01-06 04:39] LABS: APPEARANCE,URINE Clear (CLEAR); BILIRUBIN,URINE Negative (NEGATIVE); COLOR,URINE Yellow (YELLOW); GLUCOSE, URINE (UA) >=1000 mg/dL (NEGATIVE); KETONES,URINE Negative (NEGATIVE); LEUKOCYTE ESTERASE ,URINE Negative (NEGATIVE); NITRATE,URINE Negative (NEGATIVE); OCCULT BLOOD,URINE Negative (NEGATIVE); PROTEIN,URINE Negative (NEGATIVE)
[2020-01-06 04:47] LABS: BACTERIA,URINE Rare /HPF (None Seen); RBC,URINE 0-1 /HPF (0-1)
[2020-01-06 04:56] LABS: BASOPHILS % (AUTO) 0.6 % (0.0-5.0); EOSINOPHILS % (AUTO) 5.1 % (0.0-8.0); HEMATOCRIT 41.4 % (42-54); LYMPHOCYTES % (AUTO) 28.3 % (21.0-51.0); MEAN CORPUSCULAR HEMOGLOBIN 29.9 pg (27.0-33.0); MEAN CORPUSCULAR HGB CONC 31.9 g/dL (32.0-36.0); MEAN CORPUSCULAR VOLUME 93.9 fL (79-99); MONOCYTES % (AUTO) 5.4 % (3.0-13.0); NEUTROPHILS % (AUTO) 60.3 % (40.0-77.0); PLATELET COUNT (AUTO) 207 K/uL (130-400); RED BLOOD CELL COUNT(AUTO) 4.41 MIL/uL (4.50-6.20); RED CELL DISTRIBUTION WIDTH 14.6 % (11.0-15.5); WHITE BLOOD COUNT (AUTO) 6.9 K/uL (4.8-10.8)
[2020-01-06 05:13] LABS: ALBUMIN 2.6 g/dL (3.5-5.0); BILIRUBIN,TOTAL 0.5 mg/dL (0.2-1.0); CREATININE 0.7 mg/dL (0.5-1.5); PHOSPHORUS 3.4 mg/dL (2.5-4.9); TOTAL PROTEIN, SERUM 6.7 g/dL (6.0-8.3)
[2020-01-06] MEDS: INSULIN HUMULIN R 100 UNIT/ML 3ML SQ SCH ×4 (05:53→21:00)
[2020-01-06] MEDS: SODIUM CHLORIDE 0.9% 1000ML 1,000 ML IV SCH ×2 (06:36→14:10)
[2020-01-06 07:45] VITALS: BP 103/60
[2020-01-06] MEDS ORDERED: IOHEXOL-350 75 ML VIAL IV ONE (08:15)
[2020-01-06] MEDS ORDERED: ONDANSETRON HCL 4 MG/2 ML VIAL ONE (09:11)
[2020-01-06] MEDS: TICAGRELOR 90 MG TABLET PO SCH ×2 (09:22→21:40)
[2020-01-06] MEDS: FAMOTIDINE/PF 20 MG/2 ML VIAL IV SCH ×2 (09:22→21:39)
[2020-01-06] MEDS: ENOXAPARIN SODIUM 40 MG/0.4 ML SYRINGE SQ SCH (09:22)
[2020-01-06] MEDS: ASPIRIN 81 MG EC TAB PO SCH (09:22)
[2020-01-06] MEDS: ISOSORBIDE MONO 30MG TAB SR PO SCH (09:30)
--- NOTE | 2020-01-06 10:06 | NUR ---
Chest Pain Patient states that with the chest pain for about 1 month he has been blacking out with hearing loss that lasts for less than 1 min and occurs about 3-4 times a day.
[2020-01-06 10:16] LABS: HEPATITIS A ANTIBODY IGM Negative (Negative); HEPATITIS B CORE IGM Negative (Negative); HEPATITIS Bs ANTIGEN SCREEN P Negative (Negative)
[2020-01-06 11:00] VITALS: BP 93/59
[2020-01-06] MEDS ORDERED: LIDOCAINE 5% TOPICAL PATCH TP SCH (12:30)
--- NOTE | 2020-01-06 15:40 | NUR ---
IN House Transfer Patient Covid PCR is NEGATIVE patient is now transferred per telephone orders, he is to be placed in room 317, he is AAOX4, skin intact.
[2020-01-06] MEDS: SODIUM CHLORIDE 0.9% 10 ML VIAL IV SCH (16:00)
[2020-01-06 19:25] VITALS: BP 98/60
[2020-01-06] MEDS: ATORVASTATIN CALCIUM 40 MG TABLET PO SCH (21:40)
[2020-01-06 23:17] VITALS: BP 108/62
[2020-01-07] MEDS: SODIUM CHLORIDE 0.9% 10 ML VIAL IV SCH ×2 (00:10→08:00)
[2020-01-07] MEDS: MORPHINE SULFATE 2 MG/ML 1ML SYG IVP PRN ×2 (00:27→06:26)
[2020-01-07 03:38] VITALS: BP 102/58
[2020-01-07 03:38] LABS: BASOPHILS % (AUTO) 0.6 % (0.0-5.0); EOSINOPHILS % (AUTO) 4.9 % (0.0-8.0); HEMATOCRIT 42.1 % (42-54); LYMPHOCYTES % (AUTO) 27.7 % (21.0-51.0); MEAN CORPUSCULAR HEMOGLOBIN 30.1 pg (27.0-33.0); MEAN CORPUSCULAR HGB CONC 32.1 g/dL (32.0-36.0); MEAN CORPUSCULAR VOLUME 93.8 fL (79-99); MONOCYTES % (AUTO) 8.8 % (3.0-13.0); NEUTROPHILS % (AUTO) 57.7 % (40.0-77.0); PLATELET COUNT (AUTO) 203 K/uL (130-400); RED BLOOD CELL COUNT(AUTO) 4.49 MIL/uL (4.50-6.20); RED CELL DISTRIBUTION WIDTH 14.4 % (11.0-15.5); WHITE BLOOD COUNT (AUTO) 6.9 K/uL (4.8-10.8)
[2020-01-07 04:05] LABS: ALBUMIN 2.8 g/dL (3.5-5.0); BILIRUBIN,TOTAL 0.4 mg/dL (0.2-1.0); CREATININE 0.7 mg/dL (0.5-1.5); PHOSPHORUS 2.5 mg/dL (2.5-4.9); POTASSIUM 4.3 mmol/L (3.5-5.1); TOTAL PROTEIN, SERUM 6.9 g/dL (6.0-8.3)
[2020-01-07] MEDS: INSULIN HUMULIN R 100 UNIT/ML 3ML SQ SCH (05:54)
[2020-01-07 08:01] VITALS: BP 103/60
[2020-01-07] MEDS ORDERED: GUAI5SYR PO (08:24)
[2020-01-07] MEDS: TICAGRELOR 90 MG TABLET PO SCH (09:18)
[2020-01-07] MEDS: ASPIRIN 81 MG EC TAB PO SCH (09:18)
[2020-01-07] MEDS: ISOSORBIDE MONO 30MG TAB SR PO SCH (09:18)
--- NOTE | 2020-01-07 12:40 | NUR ---
7210 PATIENT SIGNED HINOJOSA LETTER, I FAXED HINOJOSA LETTER TO [id number] AND PLACED IN CHART UNDER CONSENT TAB
== END 2020-01-07 10:45 | disposition home or self-care (01) ==
LOC: EDH 22:05 → EDHIP 01-05 01:33 → INTOOBSV 01-05 01:33 → 3AH 01-05 03:20 → 3CH 01-06 15:45
PROVIDERS: ADMIT Internal Medicine; ATTEND Internal Medicine
DX: R07.89 Other chest pain (principal); Z20.828 Contact with and (suspected) exposure to other viral communicable diseases; R06.02 Shortness of breath; R05 Cough; I25.119 Atherosclerotic heart disease of native coronary artery with unspecified angina pectoris; R74.0 Nonspecific elevation of levels of transaminase and lactic acid dehydrogenase [LDH]; E11.40 Type 2 diabetes mellitus with diabetic neuropathy, unspecified; E11.51 Type 2 diabetes mellitus with diabetic peripheral angiopathy without gangrene; I10 Essential (primary) hypertension; E78.5 Hyperlipidemia, unspecified; J98.11 Atelectasis; I70.8 Atherosclerosis of other arteries; F17.210 Nicotine dependence, cigarettes, uncomplicated; Z95.5 Presence of coronary angioplasty implant and graft; Z95.1 Presence of aortocoronary bypass graft; Z90.89 Acquired absence of other organs; Z90.49 Acquired absence of other specified parts of digestive tract; Z79.84 Long term (current) use of oral hypoglycemic drugs; Z79.82 Long term (current) use of aspirin; Z79.899 Other long term (current) drug therapy
CPT/HCPCS: 36415 ×4; 71045; 71275; 80053 ×3; 80061; 80074; 81001; 82550 ×4; 82948 ×11; 83036; 83735 ×2; 83874 ×3; 84100 ×2; 84484 ×4; 85025 ×3; 85378; 85610; 85730; 87426; 93005 ×4; 93306; 93356; 96361 ×2; 96372 ×2; 96374; 96375; 96376 ×3; 99285; G0378 ×55; J1170 ×7; J1650 ×2; J1815; J1885; J2270; J2405 ×2; J3490 ×4; J7030 ×3; Q9967; U0003

== ENCOUNTER 2020-01-19 17:39 | Emergency (ER) | payer MEDICARE ==
[~2020-01-19 17:39] MED LIST changes: +GUAI5SYR PO
[2020-01-19 17:56] LABS: BASOPHILS % (AUTO) 0.4 % (0.0-5.0); EOSINOPHILS % (AUTO) 4.1 % (0.0-8.0); HEMATOCRIT 46.1 % (42-54); LYMPHOCYTES % (AUTO) 29.5 % (21.0-51.0); MEAN CORPUSCULAR HEMOGLOBIN 30.7 pg (27.0-33.0); MEAN CORPUSCULAR HGB CONC 33.2 g/dL (32.0-36.0); MEAN CORPUSCULAR VOLUME 92.4 fL (79-99); MONOCYTES % (AUTO) 6.6 % (3.0-13.0); PLATELET COUNT (AUTO) 261 K/uL (130-400); RED BLOOD CELL COUNT(AUTO) 4.99 MIL/uL (4.50-6.20); RED CELL DISTRIBUTION WIDTH 14.4 % (11.0-15.5); WHITE BLOOD COUNT (AUTO) 9.7 K/uL (4.8-10.8)
[2020-01-19 18:11] LABS: CREATININE 0.7 mg/dL (0.5-1.5); POTASSIUM 3.8 mmol/L (3.5-5.1)
[2020-01-19] MEDS ORDERED: KETOROLAC TROMETHAMINE 30MG/ML ONE (18:11)
[2020-01-19 18:12] LABS: INR 0.88 (0.85-1.15); PARTIAL THROMBOPLASTIN TIME 29.7 SEC (26.3-35.5); PROTHROMBIN TIME 9.5 SEC (9.6-11.6)
[2020-01-19 18:15] LABS: ALBUMIN 3.6 g/dL (3.5-5.0); BILIRUBIN,TOTAL 0.4 mg/dL (0.2-1.0); TOTAL PROTEIN, SERUM 8.5 g/dL (6.0-8.3)
== END 2020-01-19 20:06 | disposition home or self-care (01) ==
LOC: EDH 17:39
DX: R07.89 Other chest pain (principal); E11.40 Type 2 diabetes mellitus with diabetic neuropathy, unspecified; I25.10 Atherosclerotic heart disease of native coronary artery without angina pectoris; E11.9 Type 2 diabetes mellitus without complications; I10 Essential (primary) hypertension; E78.5 Hyperlipidemia, unspecified; Z95.1 Presence of aortocoronary bypass graft; Z72.0 Tobacco use
CPT/HCPCS: 36415; 71045; 80053; 82550; 84484; 85025; 85610; 85730; 93005; 96374; 99285; J1885

== ENCOUNTER 2020-02-16 12:38 | Emergency (ER) | payer MEDICARE ==
[~2020-02-16 12:38] MED LIST changes: -GUAI5SYR PO
[2020-02-16 13:05] LABS: BASOPHILS % (AUTO) 0.5 % (0.0-5.0); EOSINOPHILS % (AUTO) 3.7 % (0.0-8.0); HEMATOCRIT 45.3 % (42-54); LYMPHOCYTES % (AUTO) 23.8 % (21.0-51.0); MEAN CORPUSCULAR HEMOGLOBIN 29.9 pg (27.0-33.0); MEAN CORPUSCULAR HGB CONC 32.9 g/dL (32.0-36.0); MEAN CORPUSCULAR VOLUME 90.8 fL (79-99); MONOCYTES % (AUTO) 6.5 % (3.0-13.0); NEUTROPHILS % (AUTO) 65.1 % (40.0-77.0); PLATELET COUNT (AUTO) 260 K/uL (130-400); RED BLOOD CELL COUNT(AUTO) 4.99 MIL/uL (4.50-6.20); RED CELL DISTRIBUTION WIDTH 14.6 % (11.0-15.5); WHITE BLOOD COUNT (AUTO) 11.4 K/uL (4.8-10.8)
[2020-02-16] MEDS ORDERED: ASPIRIN 81MG TAB.CHEW ONE (13:14)
[2020-02-16 13:15] LABS: INR 0.87 (0.85-1.15); PARTIAL THROMBOPLASTIN TIME 28.9 SEC (26.3-35.5); PROTHROMBIN TIME 9.4 SEC (9.6-11.6)
[2020-02-16 13:18] LABS: ALBUMIN 3.4 g/dL (3.5-5.0); BILIRUBIN,TOTAL 0.4 mg/dL (0.2-1.0); TOTAL PROTEIN, SERUM 8.7 g/dL (6.0-8.3)
[2020-02-16 13:41] LABS: CREATININE 0.8 mg/dL (0.5-1.5); POTASSIUM 4.3 mmol/L (3.5-5.1)
== END 2020-02-16 16:50 | disposition home or self-care (01) ==
LOC: EDH 12:38
DX: R07.89 Other chest pain (principal); R53.83 Other fatigue; R06.02 Shortness of breath; I10 Essential (primary) hypertension; E78.5 Hyperlipidemia, unspecified; E11.40 Type 2 diabetes mellitus with diabetic neuropathy, unspecified; I25.10 Atherosclerotic heart disease of native coronary artery without angina pectoris; Z72.0 Tobacco use
CPT/HCPCS: 36415; 71045; 80053; 82550; 84484; 85025; 85610; 85730; 93005

== ENCOUNTER 2020-04-10 19:15 | Emergency (ER) | payer MEDICARE ==
[2020-04-10] MEDS ORDERED: MORPHINE SULFATE 4 MG/1ML SYG ONE (21:19)
== END 2020-04-10 21:40 | disposition home or self-care (01) ==
LOC: EDH 19:15
DX: G50.1 Atypical facial pain (principal); I50.9 Heart failure, unspecified; E11.9 Type 2 diabetes mellitus without complications; G89.18 Other acute postprocedural pain; I11.0 Hypertensive heart disease with heart failure; E78.5 Hyperlipidemia, unspecified; Z90.49 Acquired absence of other specified parts of digestive tract
CPT/HCPCS: 96372 ×2; 99284; J2270

== ENCOUNTER 2020-04-11 11:14 | Inpatient (IN) | payer MEDICARE ==
[~2020-04-11] VITALS: Ht 177.8 cm; Wt 94.8 kg
[2020-04-11 12:35] LABS: BASOPHILS % (AUTO) 0.5 % (0.0-5.0); HEMATOCRIT 40.6 % (42-54); LYMPHOCYTES % (AUTO) 24.6 % (21.0-51.0); MEAN CORPUSCULAR HEMOGLOBIN 29.3 pg (27.0-33.0); MEAN CORPUSCULAR VOLUME 91.4 fL (79-99); MONOCYTES % (AUTO) 8.1 % (3.0-13.0); NEUTROPHILS % (AUTO) 62.1 % (40.0-77.0); PLATELET COUNT (AUTO) 341 K/uL (130-400); RED BLOOD CELL COUNT(AUTO) 4.44 MIL/uL (4.50-6.20); RED CELL DISTRIBUTION WIDTH 14.9 % (11.0-15.5); WHITE BLOOD COUNT (AUTO) 7.5 K/uL (4.8-10.8)
[2020-04-11 12:48] LABS: CREATININE 0.9 mg/dL (0.5-1.5); POTASSIUM 4.5 mmol/L (3.5-5.1)
[2020-04-11 12:52] LABS: ALBUMIN 2.9 g/dL (3.5-5.0); BILIRUBIN,TOTAL 1.1 mg/dL (0.2-1.0); TOTAL PROTEIN, SERUM 8.1 g/dL (6.0-8.3)
[2020-04-11] MEDS ORDERED: ZOLPIDEM TARTRATE 5 MG TAB PO PRN (13:15)
[2020-04-11] MEDS ORDERED: GUAIFENESIN-DM 200/20 MG 10 ML PO PRN (13:15)
[2020-04-11] MEDS ORDERED: HYDRALAZINE HCL 20 MG/ML VIAL IV PRN (13:15)
[2020-04-11] MEDS ORDERED: MORPHINE SULFATE 2 MG/ML 1ML SYG IV PRN (13:15)
[2020-04-11] MEDS ORDERED: NITROGLYCERIN 0.4 MG SL TAB SL PRN (13:15)
[2020-04-11] MEDS ORDERED: ACETAMINOPHEN 325 MG TAB PO PRN (13:15)
[2020-04-11] MEDS ORDERED: DIPHENHYDRAMINE HCL 25 MG CAPSULE PO PRN (13:15)
[2020-04-11] MEDS ORDERED: MAG HYDROX/AL HYDROX/SIMETH ES 30 ML SUSP UDCUP PO PRN (13:15)
[2020-04-11] MEDS: SODIUM CHLORIDE 0.9% 1000ML 1,000 ML IV SCH (13:15)
[2020-04-11] MEDS ORDERED: ACETAMINOPHEN-CODEINE 300/30MG TAB PO PRN (13:15)
[2020-04-11] MEDS ORDERED: IOHEXOL 350 MG/ML 100ML INFUS..BTL IV ONE (14:04)
[2020-04-11] MEDS ORDERED: NALOXONE HCL 0.4 MG/1 ML ML IVP PRN (18:45)
[2020-04-11 20:00] VITALS: BP 102/59
[2020-04-11] MEDS: FAMOTIDINE 20MG TAB 20 MG TAB PO SCH (21:28)
[2020-04-12] VITALS: BP 107/66
[2020-04-12 04:00] VITALS: BP 98/58
[2020-04-12] MEDS: SODIUM CHLORIDE 0.9% 1000ML 1,000 ML IV SCH ×2 (04:19→17:27)
[2020-04-12] MEDS ORDERED: CLONIDINE HCL 0.1 MG TABLET PO PRN (05:30)
[2020-04-12 06:06] LABS: BASOPHILS % (AUTO) 0.6 % (0.0-5.0); EOSINOPHILS % (AUTO) 4.9 % (0.0-8.0); LYMPHOCYTES % (AUTO) 30.1 % (21.0-51.0); MEAN CORPUSCULAR HEMOGLOBIN 29.3 pg (27.0-33.0); MEAN CORPUSCULAR HGB CONC 31.9 g/dL (32.0-36.0); MEAN CORPUSCULAR VOLUME 91.6 fL (79-99); MONOCYTES % (AUTO) 9.8 % (3.0-13.0); NEUTROPHILS % (AUTO) 54.2 % (40.0-77.0); PLATELET COUNT (AUTO) 282 K/uL (130-400); RED BLOOD CELL COUNT(AUTO) 3.93 MIL/uL (4.50-6.20); RED CELL DISTRIBUTION WIDTH 15.1 % (11.0-15.5)
[2020-04-12 06:49] LABS: ALBUMIN 2.6 g/dL (3.5-5.0); CREATININE 0.7 mg/dL (0.5-1.5); POTASSIUM 4.2 mmol/L (3.5-5.1); TOTAL PROTEIN, SERUM 7.3 g/dL (6.0-8.3)
[2020-04-12 09:16] VITALS: BP 107/69
[2020-04-12] MEDS: FAMOTIDINE 20MG TAB 20 MG TAB PO SCH ×2 (10:12→19:44)
[2020-04-12] MEDS: MORPHINE-NS 50 MG/50 ML 50 ML IV PRN ×2 (10:21→23:45)
[2020-04-12 11:52] VITALS: BP 88/53
[2020-04-12] MEDS: IBUPROFEN 800 MG TAB PO SCH ×2 (15:41→19:44)
[2020-04-12 15:53] LABS: AMPHET/METH SCREEN,URINE NEGATIVE (NEGATIVE); BARBITURATE SCREEN, URINE NEGATIVE (NEGATIVE); BENZODIAZEPINES SCREEN,URINE NEGATIVE (NEGATIVE); CANNABINOID SCREEN,URINE NEGATIVE (NEGATIVE); COCAINE SCREEN,URINE NEGATIVE (NEGATIVE); OPIATE SCREEN,URINE POSITIVE (NEGATIVE); PHENCYCLIDINE SCREEN,URINE NEGATIVE (NEGATIVE)
[2020-04-12 17:16] VITALS: BP 95/62
[2020-04-12] MEDS: ACETAMINOPHEN-CODEINE 300/30MG TAB PO SCH (19:44)
[2020-04-12 20:39] VITALS: BP 100/62
[2020-04-13] VITALS (7 sets, daily range): BP systolic 96–101; BP diastolic 53–70
[2020-04-13] MEDS: IBUPROFEN 800 MG TAB PO SCH ×4 (01:47→19:39)
[2020-04-13] MEDS: ONDANSETRON HCL 4 MG/2 ML VIAL IV PRN ×2 (01:49→19:39)
[2020-04-13 04:53] LABS: BASOPHILS % (AUTO) 0.5 % (0.0-5.0); EOSINOPHILS % (AUTO) 4.9 % (0.0-8.0); HEMATOCRIT 33.1 % (42-54); LYMPHOCYTES % (AUTO) 25.7 % (21.0-51.0); MEAN CORPUSCULAR HEMOGLOBIN 29.3 pg (27.0-33.0); MEAN CORPUSCULAR HGB CONC 32.3 g/dL (32.0-36.0); MEAN CORPUSCULAR VOLUME 90.7 fL (79-99); MONOCYTES % (AUTO) 8.9 % (3.0-13.0); NEUTROPHILS % (AUTO) 59.7 % (40.0-77.0); PLATELET COUNT (AUTO) 258 K/uL (130-400); RED BLOOD CELL COUNT(AUTO) 3.65 MIL/uL (4.50-6.20); RED CELL DISTRIBUTION WIDTH 14.9 % (11.0-15.5); WHITE BLOOD COUNT (AUTO) 6.3 K/uL (4.8-10.8)
[2020-04-13 05:30] LABS: ALBUMIN 2.6 g/dL (3.5-5.0); BILIRUBIN,TOTAL 1.4 mg/dL (0.2-1.0); CREATININE 0.7 mg/dL (0.5-1.5); POTASSIUM 4.4 mmol/L (3.5-5.1); TOTAL PROTEIN, SERUM 7.4 g/dL (6.0-8.3)
[2020-04-13] MEDS: SODIUM CHLORIDE 0.9% 1000ML 1,000 ML IV SCH ×2 (07:35→19:39)
[2020-04-13] MEDS: ACETAMINOPHEN-CODEINE 300/30MG TAB PO SCH (08:48)
[2020-04-13] MEDS: FAMOTIDINE 20MG TAB 20 MG TAB PO SCH ×2 (08:48→19:39)
[2020-04-13] MEDS: HYDROCODONE/ACETAMINOPHEN 7.5/325 MG TAB PO SCH ×2 (15:28→19:39)
[2020-04-13 21:14] LABS: LACTATE DEHYDROGENASE 155 U/L (81-234)
[2020-04-13 21:36] LABS: GAMMA GLUTAMYL TRANSFERASE 1597 U/L (5-85)
[2020-04-13] MEDS: MORPHINE SULFATE 2 MG/ML 1ML SYG IVP PRN (23:54)
[2020-04-14] VITALS (7 sets, daily range): BP systolic 100–121; BP diastolic 54–67
[2020-04-14] MEDS: HYDROCODONE/ACETAMINOPHEN 7.5/325 MG TAB PO SCH ×4 (02:05→19:28)
[2020-04-14] MEDS: IBUPROFEN 800 MG TAB PO SCH ×4 (02:05→19:28)
[2020-04-14] MEDS: MORPHINE SULFATE 2 MG/ML 1ML SYG IVP PRN ×5 (03:43→23:53)
[2020-04-14] MEDS: ONDANSETRON HCL 4 MG/2 ML VIAL IV PRN ×4 (03:43→19:28)
[2020-04-14 05:09] LABS: BASOPHILS % (AUTO) 0.6 % (0.0-5.0); EOSINOPHILS % (AUTO) 4.8 % (0.0-8.0); HEMATOCRIT 34.8 % (42-54); LYMPHOCYTES % (AUTO) 25.4 % (21.0-51.0); MEAN CORPUSCULAR HEMOGLOBIN 29.3 pg (27.0-33.0); MEAN CORPUSCULAR HGB CONC 31.6 g/dL (32.0-36.0); MEAN CORPUSCULAR VOLUME 92.8 fL (79-99); NEUTROPHILS % (AUTO) 61.8 % (40.0-77.0); PLATELET COUNT (AUTO) 252 K/uL (130-400); RED BLOOD CELL COUNT(AUTO) 3.75 MIL/uL (4.50-6.20); WHITE BLOOD COUNT (AUTO) 6.7 K/uL (4.8-10.8)
[2020-04-14 05:32] LABS: ALBUMIN 2.5 g/dL (3.5-5.0); BILIRUBIN,TOTAL 1.4 mg/dL (0.2-1.0); CREATININE 0.7 mg/dL (0.5-1.5); POTASSIUM 4.6 mmol/L (3.5-5.1); TOTAL PROTEIN, SERUM 7.2 g/dL (6.0-8.3)
[2020-04-14 08:37] LABS: BILIRUBIN,DIRECT 1.1 mg/dL (0.0-0.3)
[2020-04-14] MEDS: FAMOTIDINE 20MG TAB 20 MG TAB PO SCH ×2 (08:55→19:28)
[2020-04-14] MEDS: SODIUM CHLORIDE 0.9% 1000ML 1,000 ML IV SCH ×2 (08:55→20:53)
[2020-04-14] MEDS: LACTULOSE 20 GM/30 ML UDCUP PO PRN (23:53)
[2020-04-15] MEDS ORDERED: NITROGLYCERIN 0.4 MG SL TAB SL PRN (00:15)
[2020-04-15 00:45] LABS: CREATINE KINASE, TOTAL 37 U/L (21-232); MYOGLOBIN 14 ng/mL (10-92); TROPONIN I < 0.04 ng/mL (0.00-0.06)
[2020-04-15] MEDS: HYDROCODONE/ACETAMINOPHEN 7.5/325 MG TAB PO SCH ×4 (02:16→18:25)
[2020-04-15] MEDS: IBUPROFEN 800 MG TAB PO SCH ×3 (02:16→13:01)
[2020-04-15 04:00] VITALS: BP 101/61
[2020-04-15] MEDS: ONDANSETRON HCL 4 MG/2 ML VIAL IV PRN (05:28)
[2020-04-15] MEDS: MORPHINE SULFATE 2 MG/ML 1ML SYG IVP PRN ×4 (05:28→18:25)
[2020-04-15 05:47] LABS: BASOPHILS % (AUTO) 0.5 % (0.0-5.0); EOSINOPHILS % (AUTO) 4.5 % (0.0-8.0); HEMATOCRIT 33.5 % (42-54); LYMPHOCYTES % (AUTO) 29.5 % (21.0-51.0); MEAN CORPUSCULAR HEMOGLOBIN 29.6 pg (27.0-33.0); MEAN CORPUSCULAR HGB CONC 32.2 g/dL (32.0-36.0); MEAN CORPUSCULAR VOLUME 91.8 fL (79-99); MONOCYTES % (AUTO) 7.7 % (3.0-13.0); NEUTROPHILS % (AUTO) 57.5 % (40.0-77.0); PLATELET COUNT (AUTO) 269 K/uL (130-400); RED BLOOD CELL COUNT(AUTO) 3.65 MIL/uL (4.50-6.20); RED CELL DISTRIBUTION WIDTH 15.1 % (11.0-15.5); WHITE BLOOD COUNT (AUTO) 6.2 K/uL (4.8-10.8)
[2020-04-15 06:22] LABS: ALANINE AMINOTRANSFERASE 92 U/L (12-78); ALBUMIN 2.4 g/dL (3.5-5.0); ASPARTATE AMINOTRANSFERASE 107 U/L (10-37); BILIRUBIN,TOTAL 1.3 mg/dL (0.2-1.0); CARBON DIOXIDE 26 mmol/L (21-32); CHLORIDE 105 mmol/L (101-111); CREATINE KINASE, TOTAL 34 U/L (21-232); CREATININE 0.7 mg/dL (0.5-1.5); GLOMERULAR FILTR. RATE CALC 124 mL/min (>60); GLUCOSE,RANDOM 87 mg/dL (70-105); MYOGLOBIN 16 ng/mL (10-92); POTASSIUM 3.7 mmol/L (3.5-5.1); SODIUM SERUM 137 mmol/L (136-145); TOTAL PROTEIN, SERUM 6.9 g/dL (6.0-8.3); TROPONIN I < 0.04 ng/mL (0.00-0.06); UREA NITROGEN, BLOOD 7 mg/dL (7-18)
[2020-04-15 07:59] LABS: CREATINE KINASE, TOTAL 38 U/L (21-232); MYOGLOBIN 14 ng/mL (10-92); TROPONIN I < 0.04 ng/mL (0.00-0.06)
[2020-04-15 08:14] LABS: HEPATITIS A ANTIBODY IGM Negative (Negative); HEPATITIS B CORE IGM Negative (Negative); HEPATITIS Bs ANTIGEN SCREEN P Negative (Negative)
[2020-04-15 08:33] VITALS: BP 117/66
[2020-04-15] MEDS: FAMOTIDINE 20MG TAB 20 MG TAB PO SCH ×2 (09:00→20:21)
[2020-04-15 11:13] VITALS: BP 120/66
[2020-04-15] MEDS: SODIUM CHLORIDE 0.9% 1000ML 1,000 ML IV SCH (13:03)
[2020-04-15] MEDS: LACTULOSE 20 GM/30 ML UDCUP PO PRN (13:32)
[2020-04-15 16:36] VITALS: BP 121/64
[2020-04-15 20:00] VITALS: BP 104/66
[2020-04-16] VITALS (7 sets, daily range): BP systolic 109–132; BP diastolic 61–76
[2020-04-16] MEDS: HYDROCODONE/ACETAMINOPHEN 7.5/325 MG TAB PO SCH ×3 (02:49→21:00)
[2020-04-16] MEDS: SODIUM CHLORIDE 0.9% 1000ML 1,000 ML IV SCH ×2 (03:12→21:08)
[2020-04-16] MEDS: MORPHINE SULFATE 2 MG/ML 1ML SYG IVP PRN ×2 (04:48→14:01)
[2020-04-16 04:55] LABS: BASOPHILS % (AUTO) 0.4 % (0.0-5.0); EOSINOPHILS % (AUTO) 2.8 % (0.0-8.0); HEMATOCRIT 36.1 % (42-54); MEAN CORPUSCULAR HEMOGLOBIN 29.3 pg (27.0-33.0); MEAN CORPUSCULAR HGB CONC 31.9 g/dL (32.0-36.0); MEAN CORPUSCULAR VOLUME 92.1 fL (79-99); MONOCYTES % (AUTO) 6.7 % (3.0-13.0); NEUTROPHILS % (AUTO) 70.7 % (40.0-77.0); PLATELET COUNT (AUTO) 330 K/uL (130-400); RED BLOOD CELL COUNT(AUTO) 3.92 MIL/uL (4.50-6.20); RED CELL DISTRIBUTION WIDTH 15.3 % (11.0-15.5); WHITE BLOOD COUNT (AUTO) 9.7 K/uL (4.8-10.8)
[2020-04-16 05:14] LABS: ALBUMIN 2.5 g/dL (3.5-5.0); BILIRUBIN,TOTAL 1.1 mg/dL (0.2-1.0); CREATININE 0.7 mg/dL (0.5-1.5); TOTAL PROTEIN, SERUM 7.3 g/dL (6.0-8.3)
[2020-04-16] MEDS: FAMOTIDINE 20MG TAB 20 MG TAB PO SCH ×2 (09:09→21:08)
[2020-04-16] MEDS: LACTULOSE 20 GM/30 ML UDCUP PO PRN (20:03)
[2020-04-17] MEDS: SODIUM CHLORIDE 0.9% 1000ML 1,000 ML IV SCH ×2 (02:35→16:01)
[2020-04-17] MEDS: HYDROCODONE/ACETAMINOPHEN 7.5/325 MG TAB PO SCH ×2 (03:00→08:49)
[2020-04-17] MEDS: MORPHINE SULFATE 2 MG/ML 1ML SYG IVP PRN ×2 (03:42→16:00)
[2020-04-17 04:15] VITALS: BP 132/74
[2020-04-17 06:14] LABS: BASOPHILS % (AUTO) 0.4 % (0.0-5.0); EOSINOPHILS % (AUTO) 1.5 % (0.0-8.0); HEMATOCRIT 36.7 % (42-54); LYMPHOCYTES % (AUTO) 25.4 % (21.0-51.0); MEAN CORPUSCULAR HEMOGLOBIN 29.3 pg (27.0-33.0); MEAN CORPUSCULAR HGB CONC 31.9 g/dL (32.0-36.0); MEAN CORPUSCULAR VOLUME 91.8 fL (79-99); MONOCYTES % (AUTO) 7.9 % (3.0-13.0); NEUTROPHILS % (AUTO) 64.4 % (40.0-77.0); PLATELET COUNT (AUTO) 346 K/uL (130-400); RED CELL DISTRIBUTION WIDTH 15.3 % (11.0-15.5); WHITE BLOOD COUNT (AUTO) 9.9 K/uL (4.8-10.8)
[2020-04-17 06:36] LABS: ALBUMIN 2.7 g/dL (3.5-5.0); BILIRUBIN,TOTAL 1.1 mg/dL (0.2-1.0); CREATININE 0.7 mg/dL (0.5-1.5); POTASSIUM 4.4 mmol/L (3.5-5.1); TOTAL PROTEIN, SERUM 7.5 g/dL (6.0-8.3)
[2020-04-17 07:30] VITALS: BP 118/71
[2020-04-17] MEDS: FAMOTIDINE 20MG TAB 20 MG TAB PO SCH ×2 (08:46→21:35)
[2020-04-17 11:00] VITALS: BP 109/62
[2020-04-17] MEDS: ONDANSETRON HCL 4 MG/2 ML VIAL IV PRN (15:59)
[2020-04-17 16:00] VITALS: BP 147/70
[2020-04-17] MEDS ORDERED: GLUCAGON 1MG KIT 1 MG ML IM PRN (18:30)
[2020-04-17] MEDS ORDERED: DEXTROSE 50%-WATER 50 ML DISP.SYRIN IV PRN (18:30)
[2020-04-17] MEDS: IBUPROFEN 200 MG TAB PO SCH (18:38)
[2020-04-17 19:58] VITALS: BP 102/57
[2020-04-17] MEDS: INSULIN HUMULIN R 100 UNIT/ML 3ML SQ SCH (21:39)
[2020-04-17 23:39] VITALS: BP 91/56
[2020-04-18] MEDS: IBUPROFEN 200 MG TAB PO SCH ×4 (00:06→18:38)
[2020-04-18] MEDS: SODIUM CHLORIDE 0.9% 1000ML 1,000 ML IV SCH ×2 (02:07→18:35)
[2020-04-18] MEDS: MORPHINE SULFATE 2 MG/ML 1ML SYG IVP PRN ×4 (02:07→21:18)
[2020-04-18 03:33] VITALS: BP 105/57
[2020-04-18 04:22] LABS: BASOPHILS % (AUTO) 0.6 % (0.0-5.0); EOSINOPHILS % (AUTO) 3.9 % (0.0-8.0); HEMATOCRIT 34.6 % (42-54); LYMPHOCYTES % (AUTO) 30.2 % (21.0-51.0); MEAN CORPUSCULAR HEMOGLOBIN 29.4 pg (27.0-33.0); MEAN CORPUSCULAR HGB CONC 32.1 g/dL (32.0-36.0); MEAN CORPUSCULAR VOLUME 91.8 fL (79-99); MONOCYTES % (AUTO) 7.9 % (3.0-13.0); NEUTROPHILS % (AUTO) 57.1 % (40.0-77.0); PLATELET COUNT (AUTO) 312 K/uL (130-400); RED BLOOD CELL COUNT(AUTO) 3.77 MIL/uL (4.50-6.20); RED CELL DISTRIBUTION WIDTH 15.6 % (11.0-15.5); WHITE BLOOD COUNT (AUTO) 6.9 K/uL (4.8-10.8)
[2020-04-18 04:41] LABS: ALBUMIN 2.4 g/dL (3.5-5.0); BILIRUBIN,TOTAL 0.9 mg/dL (0.2-1.0); CREATININE 0.7 mg/dL (0.5-1.5); POTASSIUM 3.5 mmol/L (3.5-5.1); TOTAL PROTEIN, SERUM 6.9 g/dL (6.0-8.3)
[2020-04-18] MEDS: INSULIN HUMULIN R 100 UNIT/ML 3ML SQ SCH ×4 (07:30→21:26)
[2020-04-18 08:22] VITALS: BP 119/62
[2020-04-18] MEDS: FAMOTIDINE 20MG TAB 20 MG TAB PO SCH ×2 (09:44→21:17)
[2020-04-18] MEDS ORDERED: IOHEXOL-350 75 ML VIAL IV ONE (10:08)
[2020-04-18 11:57] VITALS: BP 105/65
[2020-04-18 17:52] LABS: LACTATE DEHYDROGENASE 165 U/L (81-234)
[2020-04-18 17:58] LABS: GAMMA GLUTAMYL TRANSFERASE 1386 U/L (5-85)
[2020-04-18 17:59] VITALS: BP 107/66
[2020-04-18 18:36] LABS: ALANINE AMINOTRANSFERASE 123 U/L (12-78)
[2020-04-18 20:00] VITALS: BP 101/65
[2020-04-19 00:15] VITALS: BP 113/64
[2020-04-19] MEDS: IBUPROFEN 200 MG TAB PO SCH ×4 (00:21→18:30)
[2020-04-19 04:57] VITALS: BP 111/64
[2020-04-19] MEDS: INSULIN HUMULIN R 100 UNIT/ML 3ML SQ SCH ×4 (07:30→21:26)
[2020-04-19] MEDS: SODIUM CHLORIDE 0.9% 1000ML 1,000 ML IV SCH ×2 (07:53→21:16)
[2020-04-19 08:28] VITALS: BP 107/65
[2020-04-19] MEDS: FAMOTIDINE 20MG TAB 20 MG TAB PO SCH ×2 (09:33→21:17)
[2020-04-19] MEDS: MORPHINE SULFATE 2 MG/ML 1ML SYG IVP PRN ×3 (09:40→21:17)
[2020-04-19 11:18] VITALS: BP 105/61
[2020-04-19 16:19] VITALS: BP 110/72
[2020-04-19 18:16] LABS: CREATININE 0.7 mg/dL (0.5-1.5); POTASSIUM 4.7 mmol/L (3.5-5.1)
[2020-04-19 20:00] VITALS: BP 102/58
[2020-04-20] VITALS: BP 108/61
[2020-04-20] MEDS: IBUPROFEN 200 MG TAB PO SCH ×3 (00:58→11:15)
[2020-04-20 03:49] VITALS: BP 116/73
[2020-04-20 04:49] LABS: BASOPHILS % (AUTO) 0.6 % (0.0-5.0); EOSINOPHILS % (AUTO) 6.5 % (0.0-8.0); HEMATOCRIT 35.6 % (42-54); LYMPHOCYTES % (AUTO) 30.9 % (21.0-51.0); MEAN CORPUSCULAR HEMOGLOBIN 29.6 pg (27.0-33.0); MEAN CORPUSCULAR HGB CONC 32.3 g/dL (32.0-36.0); MEAN CORPUSCULAR VOLUME 91.5 fL (79-99); MONOCYTES % (AUTO) 8.6 % (3.0-13.0); NEUTROPHILS % (AUTO) 53.1 % (40.0-77.0); PLATELET COUNT (AUTO) 330 K/uL (130-400); RED BLOOD CELL COUNT(AUTO) 3.89 MIL/uL (4.50-6.20); RED CELL DISTRIBUTION WIDTH 15.6 % (11.0-15.5); WHITE BLOOD COUNT (AUTO) 6.7 K/uL (4.8-10.8)
[2020-04-20 05:03] LABS: CREATININE 0.6 mg/dL (0.5-1.5); POTASSIUM 3.4 mmol/L (3.5-5.1)
[2020-04-20] MEDS: INSULIN HUMULIN R 100 UNIT/ML 3ML SQ SCH ×4 (06:48→22:51)
[2020-04-20 08:07] VITALS: BP 112/62
[2020-04-20] MEDS: FAMOTIDINE 20MG TAB 20 MG TAB PO SCH ×2 (09:00→22:49)
[2020-04-20] MEDS: SODIUM CHLORIDE 0.9% 1000ML 1,000 ML IV SCH (09:02)
[2020-04-20] MEDS: MORPHINE SULFATE 2 MG/ML 1ML SYG IVP PRN ×3 (09:15→22:51)
[2020-04-20 11:17] VITALS: BP 108/60
[2020-04-20 16:13] VITALS: BP 96/53
[2020-04-20 21:07] VITALS: BP 114/61
[2020-04-20] MEDS: TICAGRELOR 90 MG TABLET PO SCH (22:49)
[2020-04-21 00:15] VITALS: BP 108/59
[2020-04-21 04:52] VITALS: BP 101/61
[2020-04-21 05:14] LABS: BASOPHILS % (AUTO) 0.6 % (0.0-5.0); EOSINOPHILS % (AUTO) 5.8 % (0.0-8.0); HEMATOCRIT 36.9 % (42-54); LYMPHOCYTES % (AUTO) 33.2 % (21.0-51.0); MEAN CORPUSCULAR HEMOGLOBIN 29.5 pg (27.0-33.0); MEAN CORPUSCULAR VOLUME 92.3 fL (79-99); MONOCYTES % (AUTO) 9.6 % (3.0-13.0); NEUTROPHILS % (AUTO) 50.5 % (40.0-77.0); PLATELET COUNT (AUTO) 337 K/uL (130-400); RED CELL DISTRIBUTION WIDTH 15.8 % (11.0-15.5); WHITE BLOOD COUNT (AUTO) 7.2 K/uL (4.8-10.8)
[2020-04-21] MEDS: MORPHINE SULFATE 2 MG/ML 1ML SYG IVP PRN ×2 (05:19→10:18)
[2020-04-21 05:35] LABS: CREATININE 0.6 mg/dL (0.5-1.5); POTASSIUM 3.8 mmol/L (3.5-5.1)
[2020-04-21 07:00] VITALS: BP 109/67
[2020-04-21] MEDS ORDERED: ASPIRIN 81 MG EC TAB PO SCH (09:00)
[2020-04-21] MEDS: FAMOTIDINE 20MG TAB 20 MG TAB PO SCH (10:17)
[2020-04-21] MEDS: TICAGRELOR 90 MG TABLET PO SCH (10:17)
[2020-04-21 11:00] VITALS: BP 115/69
[2020-04-21] MEDS: INSULIN HUMULIN R 100 UNIT/ML 3ML SQ SCH ×2 (11:30→16:07)
[2020-04-21 16:00] VITALS: BP 114/63
== END 2020-04-21 18:30 | disposition home or self-care (01) | DRG 605 ==
LOC: EDH 11:14 → EDHIP 11:15 → OBSVTOIN 11:15 → 3CH 16:29
PROVIDERS: ADMIT Hospitalist; ATTEND Hospitalist
DX: S80.12XA Contusion of left lower leg, initial encounter (principal); H57.10 Ocular pain, unspecified eye; R51.9 Headache, unspecified; E11.9 Type 2 diabetes mellitus without complications; E78.5 Hyperlipidemia, unspecified; I10 Essential (primary) hypertension; M79.605 Pain in left leg; I25.10 Atherosclerotic heart disease of native coronary artery without angina pectoris; F17.200 Nicotine dependence, unspecified, uncomplicated; B96.89 Other specified bacterial agents as the cause of diseases classified elsewhere; E66.9 Obesity, unspecified; R74.8 Abnormal levels of other serum enzymes; H53.2 Diplopia; K76.0 Fatty (change of) liver, not elsewhere classified; D72.829 Elevated white blood cell count, unspecified; R53.81 Other malaise; Z68.30 Body mass index [BMI] 30.0-30.9, adult; Y93.89 Activity, other specified; Y92.89 Other specified places as the place of occurrence of the external cause; Y99.8 Other external cause status; Z95.1 Presence of aortocoronary bypass graft; Z90.49 Acquired absence of other specified parts of digestive tract; Z83.3 Family history of diabetes mellitus; Z82.3 Family history of stroke; Z82.49 Family history of ischemic heart disease and other diseases of the circulatory system
CPT/HCPCS: 36415; 70450; 70470; 70488; 70496; 70498; 73700; 74176; 74181; 76700; 80048; 80053; 80305; 82248; 82306; 82550; 82948; 82977; 83516; 83615; 83874; 84075; 84132; 84460; 84484; 85025; 86704; 86705; 86706; 86708; 86709; 87040; 87077; 87186; 87340; 87520; 93005; 93971; G0378; J1815; J2270; J2405; J7030; Q9967

== ENCOUNTER 2020-04-30 13:15 | Emergency (ER) | payer MEDICARE ==
[2020-04-30] MEDS ORDERED: ASPIRIN 325 MG TABLET ONE (13:28)
[2020-04-30] MEDS ORDERED: NITROGLYCERIN 0.4 MG SL TAB SL ONE (13:31)
[2020-04-30 13:32] LABS: BASOPHILS % (AUTO) 0.6 % (0.0-5.0); EOSINOPHILS % (AUTO) 3.4 % (0.0-8.0); HEMATOCRIT 42.3 % (42-54); LYMPHOCYTES % (AUTO) 33.5 % (21.0-51.0); MEAN CORPUSCULAR HEMOGLOBIN 30.2 pg (27.0-33.0); MEAN CORPUSCULAR HGB CONC 33.1 g/dL (32.0-36.0); MEAN CORPUSCULAR VOLUME 91.4 fL (79-99); MONOCYTES % (AUTO) 6.9 % (3.0-13.0); NEUTROPHILS % (AUTO) 55.3 % (40.0-77.0); PLATELET COUNT (AUTO) 259 K/uL (130-400); RED BLOOD CELL COUNT(AUTO) 4.63 MIL/uL (4.50-6.20); RED CELL DISTRIBUTION WIDTH 15.9 % (11.0-15.5); WHITE BLOOD COUNT (AUTO) 8.6 K/uL (4.8-10.8)
[2020-04-30 13:42] LABS: INR 0.9 (0.85-1.15); PARTIAL THROMBOPLASTIN TIME 28.5 SEC (26.3-35.5); PROTHROMBIN TIME 9.8 SEC (9.6-11.6)
[2020-04-30 13:44] LABS: CREATININE 0.7 mg/dL (0.5-1.5); POTASSIUM 4.8 mmol/L (3.5-5.1)
[2020-04-30 13:48] LABS: ALBUMIN 3.6 g/dL (3.5-5.0); BILIRUBIN,TOTAL 0.9 mg/dL (0.2-1.0); CRP QUANTITATIVE 5.9 mg/L (0.00-9.0); MAGNESIUM 2.1 mg/dL (1.80-2.40); TOTAL PROTEIN, SERUM 8.8 g/dL (6.0-8.3)
== END 2020-04-30 15:22 | disposition home or self-care (01) ==
LOC: EDH 13:15
DX: G89.29 Other chronic pain (principal); R07.89 Other chest pain; R51.9 Headache, unspecified; R74.8 Abnormal levels of other serum enzymes; E11.40 Type 2 diabetes mellitus with diabetic neuropathy, unspecified; I50.9 Heart failure, unspecified; E11.9 Type 2 diabetes mellitus without complications; E78.5 Hyperlipidemia, unspecified; I10 Essential (primary) hypertension; Z90.49 Acquired absence of other specified parts of digestive tract; Z72.0 Tobacco use
CPT/HCPCS: 36415; 71045; 80053; 82550; 83735; 84484; 85025; 85610; 85730; 86140; 93005

== ENCOUNTER 2020-05-03 19:38 | Emergency (ER) | payer MEDICARE ==
[~2020-05-03 19:38] MED LIST changes: -ATOR40TA69 PO; -METF-446 PO; -TRAM50TA4 PO
[2020-05-03 19:58] LABS: BASOPHILS % (AUTO) 0.4 % (0.0-5.0); EOSINOPHILS % (AUTO) 4.3 % (0.0-8.0); HEMATOCRIT 40.9 % (42-54); LYMPHOCYTES % (AUTO) 34.7 % (21.0-51.0); MEAN CORPUSCULAR HEMOGLOBIN 30.3 pg (27.0-33.0); MEAN CORPUSCULAR VOLUME 91.7 fL (79-99); MONOCYTES % (AUTO) 6.7 % (3.0-13.0); NEUTROPHILS % (AUTO) 53.8 % (40.0-77.0); PLATELET COUNT (AUTO) 238 K/uL (130-400); RED BLOOD CELL COUNT(AUTO) 4.46 MIL/uL (4.50-6.20); RED CELL DISTRIBUTION WIDTH 15.7 % (11.0-15.5); WHITE BLOOD COUNT (AUTO) 7.3 K/uL (4.8-10.8)
[2020-05-03 20:01] LABS: CREATININE 0.7 mg/dL (0.5-1.5); POTASSIUM 4.1 mmol/L (3.5-5.1)
[2020-05-03 20:06] LABS: ALBUMIN 3.5 g/dL (3.5-5.0); TOTAL PROTEIN, SERUM 8.7 g/dL (6.0-8.3)
[2020-05-03 20:17] LABS: CREATINE KINASE, TOTAL 28 U/L (21-232); MYOGLOBIN 15 ng/mL (10-92); TROPONIN I < 0.04 ng/mL (0.00-0.06)
[2020-05-03 22:00] LABS: APPEARANCE,URINE Clear (CLEAR); BILIRUBIN,URINE Negative (NEGATIVE); COLOR,URINE Yellow (YELLOW); GLUCOSE, URINE (UA) TRACE mg/dL (NEGATIVE); KETONES,URINE Negative (NEGATIVE); LEUKOCYTE ESTERASE ,URINE Negative (NEGATIVE); NITRATE,URINE Negative (NEGATIVE); OCCULT BLOOD,URINE Negative (NEGATIVE); PH,URINE 6.5 (5.0-8.0); PROTEIN,URINE Negative (NEGATIVE); UROBILINOGEN,URINE 0.2 mg/dL (0.2-1.0)
[2020-05-03 22:11] LABS: BACTERIA,URINE Rare /HPF (None Seen); RBC,URINE 0-1 /HPF (0-1); SQUAMOUS EPITHELIAL CELL,UR Rare /HPF (0-2); WBC,URINE 0-1 /HPF (0-1)
[2020-05-04] MEDS ORDERED: ACETAMINOPHEN EXTRA STRENGTH 500 MG TABLET ONE (00:17)
== END 2020-05-04 01:24 | disposition home or self-care (01) ==
LOC: EDH 19:38
DX: R07.89 Other chest pain (principal); R94.5 Abnormal results of liver function studies; G89.29 Other chronic pain; R10.11 Right upper quadrant pain; I10 Essential (primary) hypertension; E78.5 Hyperlipidemia, unspecified; E11.40 Type 2 diabetes mellitus with diabetic neuropathy, unspecified; I25.10 Atherosclerotic heart disease of native coronary artery without angina pectoris; Z90.49 Acquired absence of other specified parts of digestive tract; Z95.1 Presence of aortocoronary bypass graft; Z72.0 Tobacco use
CPT/HCPCS: 36415; 71045; 80053; 81001; 82550; 83874; 84484; 85025; 93005

== ENCOUNTER 2020-05-13 14:40 | Emergency (ER) | payer MEDICARE ==
[2020-05-13 16:19] LABS: BASOPHILS % (AUTO) 0.6 % (0.0-5.0); EOSINOPHILS % (AUTO) 3.7 % (0.0-8.0); HEMATOCRIT 42.9 % (42-54); LYMPHOCYTES % (AUTO) 30.9 % (21.0-51.0); MEAN CORPUSCULAR HEMOGLOBIN 30.1 pg (27.0-33.0); MEAN CORPUSCULAR HGB CONC 32.9 g/dL (32.0-36.0); MEAN CORPUSCULAR VOLUME 91.7 fL (79-99); MONOCYTES % (AUTO) 5.6 % (3.0-13.0); NEUTROPHILS % (AUTO) 58.9 % (40.0-77.0); PLATELET COUNT (AUTO) 216 K/uL (130-400); RED BLOOD CELL COUNT(AUTO) 4.68 MIL/uL (4.50-6.20); RED CELL DISTRIBUTION WIDTH 15.2 % (11.0-15.5); WHITE BLOOD COUNT (AUTO) 6.3 K/uL (4.8-10.8)
[2020-05-13 16:28] LABS: CREATININE 0.9 mg/dL (0.5-1.5); POTASSIUM 5.4 mmol/L (3.5-5.1)
[2020-05-13 16:33] LABS: ALBUMIN 3.3 g/dL (3.5-5.0); BILIRUBIN,TOTAL 0.6 mg/dL (0.2-1.0)
[2020-05-13 18:44] LABS: CREATININE 0.8 mg/dL (0.5-1.5); POTASSIUM 4.9 mmol/L (3.5-5.1)
[2020-05-13] MEDS ORDERED: SODIUM CHLORIDE 0.9% 1000ML 1,000 ML IV ONE (19:08)
== END 2020-05-13 19:15 | disposition home or self-care (01) ==
LOC: EDH 14:40
DX: G44.319 Acute post-traumatic headache, not intractable (principal); I10 Essential (primary) hypertension; E11.40 Type 2 diabetes mellitus with diabetic neuropathy, unspecified; E78.5 Hyperlipidemia, unspecified; I25.10 Atherosclerotic heart disease of native coronary artery without angina pectoris; Z95.1 Presence of aortocoronary bypass graft; Z90.49 Acquired absence of other specified parts of digestive tract; Z72.0 Tobacco use
CPT/HCPCS: 36415; 70450; 80048; 80053; 85025; J7030

== ENCOUNTER 2020-08-19 22:43 | Emergency (ER) | payer MEDICARE | END 2020-08-20 00:23 | disposition home or self-care (01) | LOC: EDH 22:43 | DX: T82.838A Hemorrhage due to vascular prosthetic devices, implants and grafts, initial encounter (principal); E11.40 Type 2 diabetes mellitus with diabetic neuropathy, unspecified; E78.5 Hyperlipidemia, unspecified; I10 Essential (primary) hypertension; I25.10 Atherosclerotic heart disease of native coronary artery without angina pectoris; Z90.49 Acquired absence of other specified parts of digestive tract; Z72.0 Tobacco use | CPT/HCPCS: 99281 ==

== ENCOUNTER 2020-08-30 23:44 | Emergency (ER) | payer MEDICARE | END 2020-08-31 01:34 | disposition home or self-care (01) | LOC: EDH 23:44 | DX: N48.1 Balanitis (principal); E11.40 Type 2 diabetes mellitus with diabetic neuropathy, unspecified; I25.10 Atherosclerotic heart disease of native coronary artery without angina pectoris; E78.5 Hyperlipidemia, unspecified; I10 Essential (primary) hypertension; Z90.49 Acquired absence of other specified parts of digestive tract; Z72.0 Tobacco use | CPT/HCPCS: 99282 ==

== ENCOUNTER 2020-09-14 19:09 | Emergency (ER) | payer MEDICARE ==
[2020-09-14] MEDS ORDERED: KETOROLAC 30MG VIAL (30MG/ML) ONE (21:06)
[2020-09-14] MEDS ORDERED: HYDROCODONE/ACETAMINOPHEN 5/325 MG TAB ONE (21:07)
== END 2020-09-14 22:37 | disposition home or self-care (01) ==
LOC: EDH 19:09
DX: M54.5 Low back pain (principal); R51.9 Headache, unspecified; M54.2 Cervicalgia; E11.9 Type 2 diabetes mellitus without complications; E78.5 Hyperlipidemia, unspecified; I10 Essential (primary) hypertension; I25.10 Atherosclerotic heart disease of native coronary artery without angina pectoris; Z90.49 Acquired absence of other specified parts of digestive tract; V49.49XA Driver injured in collision with other motor vehicles in traffic accident, initial encounter; Y93.89 Activity, other specified; Y92.488 Other paved roadways as the place of occurrence of the external cause; Y99.8 Other external cause status
CPT/HCPCS: 70450; 72100; 72125; 96372; 99285; J1885

== ENCOUNTER 2020-11-07 20:25 | Observation (INO) | payer MEDICARE ==
[~2020-11-07] VITALS: Ht 177.8 cm; Wt 96.4 kg
[2020-11-07] MEDS ORDERED: ASPIRIN 325 MG TABLET PO ONE (20:45)
[2020-11-07 20:50] LABS: BASOPHILS % (AUTO) 0.7 % (0.0-5.0); EOSINOPHILS % (AUTO) 2.5 % (0.0-8.0); HEMATOCRIT 47.2 % (42-54); MEAN CORPUSCULAR HEMOGLOBIN 30.9 pg (27.0-33.0); MEAN CORPUSCULAR HGB CONC 33.1 g/dL (32.0-36.0); MEAN CORPUSCULAR VOLUME 93.5 fL (79-99); MONOCYTES % (AUTO) 7.7 % (3.0-13.0); NEUTROPHILS % (AUTO) 48.9 % (40.0-77.0); PLATELET COUNT (AUTO) 217 K/uL (130-400); RED BLOOD CELL COUNT(AUTO) 5.05 MIL/uL (4.50-6.20); RED CELL DISTRIBUTION WIDTH 14.4 % (11.0-15.5); WHITE BLOOD COUNT (AUTO) 5.7 K/uL (4.8-10.8)
[2020-11-07 21:03] LABS: INR 0.98 (0.85-1.15); PROTHROMBIN TIME 10.7 SEC (9.6-11.6)
[2020-11-07 21:16] LABS: ALANINE AMINOTRANSFERASE 57 U/L (12-78); ALBUMIN 3.3 g/dL (3.5-5.0); ASPARTATE AMINOTRANSFERASE 38 U/L (10-37); BILIRUBIN,TOTAL 0.4 mg/dL (0.2-1.0); CARBON DIOXIDE 29 mmol/L (21-32); CHLORIDE 102 mmol/L (101-111); CHOLESTEROL 224 mg/dL (<200); CREATINE KINASE, TOTAL 39 U/L (21-232); CREATININE 1.3 mg/dL (0.5-1.5); GLOMERULAR FILTR. RATE CALC 61 mL/min (>60); HDL CHOLESTEROL 73 mg/dL (29-71); LDL DIRECT 98 mg/dL (0-99); MYOGLOBIN 11 ng/mL (10-92); POTASSIUM 4.6 mmol/L (3.5-5.1); SODIUM SERUM 139 mmol/L (136-145); TOTAL PROTEIN, SERUM 8.5 g/dL (6.0-8.3); TRIGLYCERIDES 170 mg/dL (30-200); TROPONIN I < 0.04 ng/mL (0.00-0.06); UREA NITROGEN, BLOOD 21 mg/dL (7-18)
[2020-11-07 21:21] LABS: GLUCOSE,RANDOM 443 mg/dL (70-105)
[2020-11-07 21:26] LABS: B-TYPE NATRIURETIC PEPTIDE 109 pg/mL (0-100)
[2020-11-07] MEDS ORDERED: SODIUM CHLORIDE 0.9% 1000ML 1,000 ML IV ONE (22:00)
[2020-11-07] MEDS ORDERED: ONDANSETRON HCL 4 MG/2 ML VIAL IVP ONE (22:00)
[2020-11-07] MEDS ORDERED: MORPHINE 2 MG SYG (2MG/1ML) IVP ONE (22:00)
[2020-11-07 22:18] LABS: AMPHET/METH SCREEN,URINE NEGATIVE (NEGATIVE); BARBITURATE SCREEN, URINE NEGATIVE (NEGATIVE); BENZODIAZEPINES SCREEN,URINE NEGATIVE (NEGATIVE); CANNABINOID SCREEN,URINE NEGATIVE (NEGATIVE); COCAINE SCREEN,URINE NEGATIVE (NEGATIVE); OPIATE SCREEN,URINE NEGATIVE (NEGATIVE); PHENCYCLIDINE SCREEN,URINE NEGATIVE (NEGATIVE)
[2020-11-07] MEDS ORDERED: INSULIN HUMULIN R 100 UNIT/ML 3ML IV SCH (22:45)
[2020-11-07] MEDS ORDERED: ALBUTEROL SULFATE 0.083% 2.5 MG/3 ML INH IH PRN (23:15)
[2020-11-07] MEDS ORDERED: ACETAMINOPHEN 325 MG TAB PO PRN (23:15)
[2020-11-07] MEDS ORDERED: GUAIFENESIN-DM 200/20 MG 10 ML PO PRN (23:15)
[2020-11-07] MEDS ORDERED: LACTULOSE 20 GM/30 ML UDCUP PO PRN (23:15)
[2020-11-07] MEDS ORDERED: NITROGLYCERIN 0.4 MG SL TAB SL PRN (23:15)
[2020-11-07] MEDS ORDERED: DIPHENHYDRAMINE HCL 25 MG CAPSULE PO PRN (23:15)
[2020-11-07] MEDS ORDERED: HYDRALAZINE HCL 20 MG/ML VIAL IV PRN (23:15)
[2020-11-07] MEDS ORDERED: MAG HYDROX/AL HYDROX/SIMETH ES 30 ML SUSP UDCUP PO PRN (23:15)
[2020-11-07] MEDS ORDERED: MORPHINE 4 MG SYG (4MG/1ML) IV PRN (23:15)
[2020-11-07 23:20] VITALS: BP 124/77
[2020-11-07] MEDS ORDERED: GLUCAGON 1MG KIT 1 MG ML IM PRN (23:30)
[2020-11-07] MEDS ORDERED: DEXTROSE 50%-WATER 50 ML DISP.SYRIN IV PRN (23:30)
[2020-11-07 23:50] LABS: HEMOGLOBIN A1C 11.8 % (4.0-6.0)
[2020-11-08] VITALS (13 sets, daily range): BP systolic 96–117; BP diastolic 55–74
[2020-11-08] MEDS: INSULIN HUMULIN R 100 UNIT/ML 3ML SQ SCH ×5 (00:27→21:00)
[2020-11-08 01:06] LABS: CREATINE KINASE, TOTAL 32 U/L (21-232); MYOGLOBIN 11 ng/mL (10-92); TROPONIN I < 0.04 ng/mL (0.00-0.06)
[2020-11-08] MEDS: MORPHINE 2 MG SYG (2MG/1ML) IV PRN ×4 (02:12→22:13)
[2020-11-08] MEDS ORDERED: INSULIN HUMULIN R 100 UNIT/ML 3ML SQ SCH (07:30)
[2020-11-08] MEDS: FAMOTIDINE/PF 20 MG/2 ML VIAL IV SCH ×2 (08:25→20:33)
[2020-11-08] MEDS: METOPROLOL TARTRATE 25 MG TAB PO SCH ×2 (08:25→20:33)
[2020-11-08] MEDS: ASPIRIN 81MG TAB.CHEW PO SCH (08:25)
[2020-11-08] MEDS: ENOXAPARIN SODIUM 40 MG/0.4 ML SYRINGE SQ SCH (08:28)
[2020-11-08] MEDS: NITROGLYCERIN 1GM/1 INCH PACKET TD SCH ×2 (11:51→20:33)
[2020-11-08] MEDS ORDERED: AEC81 PO (12:01)
[2020-11-08] MEDS ORDERED: TICA90TA PO (12:01)
[2020-11-08] MEDS: ONDANSETRON HCL 4 MG/2 ML VIAL IV PRN (13:13)
[2020-11-08] MEDS: TICAGRELOR 90 MG TABLET PO SCH ×2 (13:13→20:33)
[2020-11-08] MEDS ORDERED: TICAGRELOR 90 MG TABLET PO SCH (13:15)
[2020-11-08] MEDS: FOLIC ACID 1 MG TABLET PO SCH (15:52)
[2020-11-08] MEDS: CYANOCOBALAMIN (VITAMIN B-12) 1,000 MCG TABLET PO SCH (15:52)
[2020-11-08] MEDS: THIAMINE HCL 100 MG TABLET PO SCH (15:52)
[2020-11-08 16:24] LABS: CREATINE KINASE, TOTAL 31 U/L (21-232); MYOGLOBIN 22 ng/mL (10-92); TROPONIN I < 0.04 ng/mL (0.00-0.06)
[2020-11-08] MEDS ORDERED: ATORVASTATIN CALCIUM 20 MG TABLET PO SCH (21:00)
[2020-11-09] VITALS: BP 119/71
[2020-11-09 00:52] LABS: CREATINE KINASE, TOTAL 29 U/L (21-232); MYOGLOBIN 24 ng/mL (10-92); TROPONIN I < 0.04 ng/mL (0.00-0.06)
[2020-11-09] MEDS: NITROGLYCERIN 1GM/1 INCH PACKET TD SCH ×2 (02:38→11:57)
[2020-11-09] MEDS: MORPHINE 2 MG SYG (2MG/1ML) IV PRN ×3 (02:39→13:15)
[2020-11-09 04:00] VITALS: BP 97/60
[2020-11-09 05:44] LABS: BASOPHILS % (AUTO) 0.6 % (0.0-5.0); EOSINOPHILS % (AUTO) 5.4 % (0.0-8.0); LYMPHOCYTES % (AUTO) 31.6 % (21.0-51.0); MEAN CORPUSCULAR HGB CONC 32.8 g/dL (32.0-36.0); MEAN CORPUSCULAR VOLUME 91.4 fL (79-99); MONOCYTES % (AUTO) 6.8 % (3.0-13.0); NEUTROPHILS % (AUTO) 55.3 % (40.0-77.0); PLATELET COUNT (AUTO) 196 K/uL (130-400); RED BLOOD CELL COUNT(AUTO) 5.14 MIL/uL (4.50-6.20); RED CELL DISTRIBUTION WIDTH 14.1 % (11.0-15.5); WHITE BLOOD COUNT (AUTO) 6.5 K/uL (4.8-10.8)
[2020-11-09 05:57] LABS: CREATININE 0.7 mg/dL (0.5-1.5); POTASSIUM 4.3 mmol/L (3.5-5.1)
[2020-11-09] MEDS: INSULIN HUMULIN R 100 UNIT/ML 3ML SQ SCH ×3 (06:19→17:01)
[2020-11-09 08:00] VITALS: BP 99/71
[2020-11-09] MEDS: FAMOTIDINE/PF 20 MG/2 ML VIAL IV SCH (08:36)
[2020-11-09] MEDS: ENOXAPARIN SODIUM 40 MG/0.4 ML SYRINGE SQ SCH (08:38)
[2020-11-09] MEDS: METOPROLOL TARTRATE 25 MG TAB PO SCH (08:39)
[2020-11-09] MEDS: FOLIC ACID 1 MG TABLET PO SCH (08:40)
[2020-11-09] MEDS: TICAGRELOR 90 MG TABLET PO SCH (08:40)
[2020-11-09] MEDS: ASPIRIN 81MG TAB.CHEW PO SCH (08:40)
[2020-11-09] MEDS: THIAMINE HCL 100 MG TABLET PO SCH (08:41)
[2020-11-09] MEDS: CYANOCOBALAMIN (VITAMIN B-12) 1,000 MCG TABLET PO SCH (08:42)
[2020-11-09 12:00] VITALS: BP 106/66
[2020-11-09] MEDS ORDERED: LIDOCAINE 5% TOPICAL PATCH TP SCH ×2 (15:15)
[2020-11-09] MEDS ORDERED: CYAN1TAB44 PO (15:46)
[2020-11-09] MEDS ORDERED: GLIM1TAB18 PO (15:46)
[2020-11-09] MEDS: ONDANSETRON HCL 4 MG/2 ML VIAL IV PRN (15:47)
[2020-11-09 16:00] VITALS: BP 105/68
== END 2020-11-09 18:00 | disposition home or self-care (01) ==
LOC: EDH 20:25 → EDHIP 22:01 → OBSVTOIN 22:01 → INTOOBSV 22:01 → 4BH 11-08 22:45
PROVIDERS: ADMIT Internal Medicine; ATTEND Internal Medicine
DX: I25.110 Atherosclerotic heart disease of native coronary artery with unstable angina pectoris (principal); E11.65 Type 2 diabetes mellitus with hyperglycemia; I10 Essential (primary) hypertension; E78.5 Hyperlipidemia, unspecified; F17.210 Nicotine dependence, cigarettes, uncomplicated; Z95.1 Presence of aortocoronary bypass graft; Z90.49 Acquired absence of other specified parts of digestive tract; Z79.899 Other long term (current) drug therapy; Z79.82 Long term (current) use of aspirin; Z79.84 Long term (current) use of oral hypoglycemic drugs
CPT/HCPCS: 36415 ×3; 71045; 80048; 80053; 80061; 80305; 82010; 82550 ×4; 82948 ×9; 83036; 83735; 83874 ×4; 83880; 84484 ×4; 85025 ×2; 85610; 93005 ×3; 94664; 96361 ×2; 96372 ×2; 96374; 96375 ×2; 96376 ×2; 99285; G0378 ×42; J1650 ×2; J1815 ×2; J2270; J2405 ×3; J3490 ×3

== ENCOUNTER 2020-11-12 21:04 | Emergency (ER) | payer MEDICARE ==
[~2020-11-12] VITALS: Ht 177.8 cm; Wt 94.8 kg
[~2020-11-12 21:04] MED LIST changes: +CYAN1TAB44 PO; +GLIM1TAB18 PO
[2020-11-12 23:25] LABS: BASOPHILS % (AUTO) 0.5 % (0.0-5.0); EOSINOPHILS % (AUTO) 3.4 % (0.0-8.0); HEMATOCRIT 44.4 % (42-54); MEAN CORPUSCULAR HEMOGLOBIN 30.8 pg (27.0-33.0); MEAN CORPUSCULAR HGB CONC 33.1 g/dL (32.0-36.0); MEAN CORPUSCULAR VOLUME 92.9 fL (79-99); MONOCYTES % (AUTO) 5.5 % (3.0-13.0); NEUTROPHILS % (AUTO) 48.2 % (40.0-77.0); PLATELET COUNT (AUTO) 204 K/uL (130-400); RED BLOOD CELL COUNT(AUTO) 4.78 MIL/uL (4.50-6.20); RED CELL DISTRIBUTION WIDTH 14.2 % (11.0-15.5); WHITE BLOOD COUNT (AUTO) 7.9 K/uL (4.8-10.8)
[2020-11-12] MEDS ORDERED: LIDOCAINE HCL 2% VISCOUS 15 ML UDCUP PO ONE ×2 (23:30)
[2020-11-12] MEDS ORDERED: FAMOTIDINE/PF 20 MG/2 ML VIAL IV ONE (23:30)
[2020-11-12] MEDS ORDERED: MAG HYDROX/AL HYDROX/SIMETH ES 30 ML SUSP UDCUP PO ONE (23:30)
[2020-11-12] MEDS ORDERED: DICYCLOMINE HCL 10 MG/5 ML ML PO ONE (23:30)
[2020-11-12] MEDS ORDERED: PANTOPRAZOLE 40 MG/VIAL IVP SCH (23:30)
[2020-11-12 23:38] LABS: CARBON DIOXIDE 30 mmol/L (21-32); CHLORIDE 100 mmol/L (101-111); CREATININE 0.8 mg/dL (0.5-1.5); GLOMERULAR FILTR. RATE CALC 107 mL/min (>60); GLUCOSE,RANDOM 351 mg/dL (70-105); POTASSIUM 4.9 mmol/L (3.5-5.1); SODIUM SERUM 136 mmol/L (136-145); UREA NITROGEN, BLOOD 12 mg/dL (7-18)
[2020-11-12 23:49] LABS: ALANINE AMINOTRANSFERASE 77 U/L (12-78); ALBUMIN 3.4 g/dL (3.5-5.0); ASPARTATE AMINOTRANSFERASE 58 U/L (10-37); BILIRUBIN,TOTAL 0.4 mg/dL (0.2-1.0); CREATINE KINASE, TOTAL 68 U/L (21-232); LIPASE 73 U/L (114-286); MYOGLOBIN 25 ng/mL (10-92); TOTAL PROTEIN, SERUM 8.3 g/dL (6.0-8.3); TROPONIN I < 0.04 ng/mL (0.00-0.06)
[2020-11-13 00:30] VITALS: BP 104/67
[2020-11-13] MEDS ORDERED: ONDANSETRON ODT 4 MG TAB SL ONE (00:45)
[2020-11-13] MEDS ORDERED: LIDOCAINE HCL 2% VISCOUS 15 ML UDCUP PO ONE (00:45)
[2020-11-13] MEDS ORDERED: MAG HYDROX/AL HYDROX/SIMETH ES 30 ML SUSP UDCUP PO ONE (00:45)
[2020-11-13] MEDS ORDERED: AMOXICILLIN 500 MG CAPSULE PO ONE (00:45)
[2020-11-13] MEDS ORDERED: METO10TA41 PO (00:53)
[2020-11-13] MEDS ORDERED: PANT40TA PO (00:53)
[2020-11-13] MEDS ORDERED: AMOX500C2 PO (00:53)
[2020-11-13] MEDS ORDERED: DICY20TA2 PO (00:53)
[2020-11-13] MEDS ORDERED: FAMOTIDINE/PF 20 MG/2 ML VIAL IV ONE (01:01)
== END 2020-11-13 01:15 | disposition home or self-care (01) ==
LOC: EDH 21:19
DX: R10.13 Epigastric pain (principal); K02.9 Dental caries, unspecified; E11.9 Type 2 diabetes mellitus without complications; E78.5 Hyperlipidemia, unspecified; I10 Essential (primary) hypertension; I25.10 Atherosclerotic heart disease of native coronary artery without angina pectoris; Z79.84 Long term (current) use of oral hypoglycemic drugs; Z79.899 Other long term (current) drug therapy; Z79.82 Long term (current) use of aspirin; Z95.1 Presence of aortocoronary bypass graft
CPT/HCPCS: 36415; 80053; 82550; 83690; 83874; 84484 ×2; 85025; 93005; 96374; 96375; 99284; C9113; J3490

== ENCOUNTER 2021-03-30 15:17 | Emergency (ER) | payer MEDICARE ==
[~2021-03-30] VITALS: Ht 177.8 cm; Wt 97.1 kg
[~2021-03-30 15:17] MED LIST changes: +AMOX500C2 PO; +DICY20TA2 PO; +METO10TA41 PO; +PANT40TA PO
[2021-03-30] MEDS ORDERED: ASPIRIN 325MG TAB PO ONE (15:30)
[2021-03-30] MEDS ORDERED: ASPIRIN 325MG TAB ONE (15:48)
[2021-03-30 15:51] LABS: BASOPHILS % (AUTO) 0.4 % (0.0-5.0); EOSINOPHILS % (AUTO) 1.3 % (0.0-8.0); HEMATOCRIT 43.5 % (42-54); LYMPHOCYTES % (AUTO) 34.3 % (21.0-51.0); MEAN CORPUSCULAR HEMOGLOBIN 30.6 pg (27.0-33.0); MEAN CORPUSCULAR HGB CONC 32.4 g/dL (32.0-36.0); MEAN CORPUSCULAR VOLUME 94.4 fL (79-99); MONOCYTES % (AUTO) 6.3 % (3.0-13.0); NEUTROPHILS % (AUTO) 57.6 % (40.0-77.0); PLATELET COUNT (AUTO) 160 K/uL (130-400); RED BLOOD CELL COUNT(AUTO) 4.61 MIL/uL (4.50-6.20); RED CELL DISTRIBUTION WIDTH 14.1 % (11.0-15.5); WHITE BLOOD COUNT (AUTO) 7.6 K/uL (4.8-10.8)
[2021-03-30 16:06] LABS: CREATININE 0.8 mg/dL (0.5-1.5)
[2021-03-30 16:13] LABS: ALBUMIN 3.4 g/dL (3.5-5.0); BILIRUBIN,TOTAL 0.6 mg/dL (0.2-1.0); TOTAL PROTEIN, SERUM 7.8 g/dL (6.0-8.3)
[2021-03-30 16:16] LABS: B-TYPE NATRIURETIC PEPTIDE 33 pg/mL (0-100); INR 0.98 (0.85-1.15); PROTHROMBIN TIME 10.7 SEC (9.6-11.6)
[2021-03-30 16:17] LABS: PARTIAL THROMBOPLASTIN TIME 26.9 SEC (26.3-35.5)
[2021-03-30 16:25] LABS: AMPHET/METH SCREEN,URINE NEGATIVE (NEGATIVE); BARBITURATE SCREEN, URINE NEGATIVE (NEGATIVE); BENZODIAZEPINES SCREEN,URINE NEGATIVE (NEGATIVE); CANNABINOID SCREEN,URINE NEGATIVE (NEGATIVE); COCAINE SCREEN,URINE NEGATIVE (NEGATIVE); OPIATE SCREEN,URINE NEGATIVE (NEGATIVE); PHENCYCLIDINE SCREEN,URINE NEGATIVE (NEGATIVE)
[2021-03-30 16:33] LABS: APPEARANCE,URINE Clear (CLEAR); BILIRUBIN,URINE Negative (NEGATIVE); COLOR,URINE Yellow (YELLOW); GLUCOSE, URINE (UA) >=1000 mg/dL (NEGATIVE); KETONES,URINE Negative (NEGATIVE); LEUKOCYTE ESTERASE ,URINE Negative (NEGATIVE); NITRATE,URINE Negative (NEGATIVE); OCCULT BLOOD,URINE Negative (NEGATIVE); PH,URINE 6.5 (5.0-8.0); PROTEIN,URINE Negative (NEGATIVE)
[2021-03-30 16:44] LABS: BACTERIA,URINE Rare /HPF (None Seen); RBC,URINE 0-1 /HPF (0-1); SQUAMOUS EPITHELIAL CELL,UR Rare /HPF (0-2); TRANSITIONAL EPI CELLS,URINE Rare /HPF (None Seen); WBC,URINE 0-1 /HPF (0-1)
[2021-03-30] MEDS ORDERED: KETOROLAC 15MG/ML VIAL (15MG/ML) ONE (17:29)
[2021-03-30] MEDS ORDERED: KETOROLAC 15MG/ML VIAL (15MG/ML) IV ONE (17:30)
[2021-03-30 17:43] VITALS: BP 101/59
== END 2021-03-30 18:02 | disposition home or self-care (01) ==
LOC: EDH 15:17
DX: R07.89 Other chest pain (principal); R42 Dizziness and giddiness; R06.02 Shortness of breath; R20.2 Paresthesia of skin; E11.9 Type 2 diabetes mellitus without complications; E78.00 Pure hypercholesterolemia, unspecified; I10 Essential (primary) hypertension; Z91.19 Patient's noncompliance with other medical treatment and regimen; F17.200 Nicotine dependence, unspecified, uncomplicated; Z79.1 Long term (current) use of non-steroidal anti-inflammatories (NSAID); Z79.82 Long term (current) use of aspirin; Z79.84 Long term (current) use of oral hypoglycemic drugs; Z79.899 Other long term (current) drug therapy; Z90.49 Acquired absence of other specified parts of digestive tract; Z95.1 Presence of aortocoronary bypass graft
CPT/HCPCS: 36415; 71045; 80053; 80305; 81001; 83880; 84484; 85025; 85610; 85730; 93005; 96374; 99285; J1885

== ENCOUNTER 2021-04-18 13:32 | Inpatient (IN) | payer MEDICARE ==
[~2021-04-18] VITALS: Ht 177.8 cm; Wt 92.1 kg
[2021-04-18 13:53] LABS: BASOPHILS % (AUTO) 0.7 % (0.0-5.0); EOSINOPHILS % (AUTO) 1.7 % (0.0-8.0); HEMATOCRIT 42.2 % (42-54); LYMPHOCYTES % (AUTO) 25.1 % (21.0-51.0); MEAN CORPUSCULAR HEMOGLOBIN 31.3 pg (27.0-33.0); MEAN CORPUSCULAR HGB CONC 33.6 g/dL (32.0-36.0); MEAN CORPUSCULAR VOLUME 93.2 fL (79-99); MONOCYTES % (AUTO) 7.3 % (3.0-13.0); NEUTROPHILS % (AUTO) 65.1 % (40.0-77.0); PLATELET COUNT (AUTO) 223 K/uL (130-400); RED BLOOD CELL COUNT(AUTO) 4.53 MIL/uL (4.50-6.20); RED CELL DISTRIBUTION WIDTH 13.8 % (11.0-15.5); WHITE BLOOD COUNT (AUTO) 6.9 K/uL (4.8-10.8)
[2021-04-18 14:01] LABS: CREATININE 1.3 mg/dL (0.5-1.5); POTASSIUM 4.9 mmol/L (3.5-5.1)
[2021-04-18 14:10] LABS: ALBUMIN 3.5 g/dL (3.5-5.0); BILIRUBIN,TOTAL 0.7 mg/dL (0.2-1.0); MAGNESIUM 1.9 mg/dL (1.80-2.40); TOTAL PROTEIN, SERUM 8.3 g/dL (6.0-8.3)
[2021-04-18 14:19] LABS: B-TYPE NATRIURETIC PEPTIDE 14 pg/mL (0-100)
[2021-04-18] MEDS ORDERED: ACETAMINOPHEN 325 MG TAB PO ONE (16:30)
[2021-04-18] MEDS ORDERED: 0.9% NACL 500ML IV.SOLN 500 ML IV SCH (16:30)
[2021-04-18] MEDS ORDERED: ONDANSETRON 4MG INJ IVP ONE (16:30)
[2021-04-18] MEDS ORDERED: ONDANSETRON 4MG INJ IV PRN (19:00)
[2021-04-18] MEDS ORDERED: ACETAMINOPHEN 325 MG TAB PO PRN ×2 (19:00)
[2021-04-18] MEDS ORDERED: LACTULOSE 20 GM/30 ML UDCUP PO PRN (19:00)
[2021-04-18] MEDS ORDERED: GUAIFENESIN-DM 200/20 MG 10 ML PO PRN (19:00)
[2021-04-18] MEDS ORDERED: MAG/ALUM/SIMETH 30 ML UDCUP PO PRN (19:00)
[2021-04-18] MEDS ORDERED: IOHEXOL 350 MG/ML 100ML INFUS..BTL IV ONE (19:56)
[2021-04-18] MEDS: FAMOTIDINE 20MG TAB PO SCH (22:21)
[2021-04-18] MEDS: INSULIN HUMULIN R 100 UNIT/ML 3ML SQ SCH (22:21)
[2021-04-19] VITALS (7 sets, daily range): BP systolic 94–121; BP diastolic 54–76
[2021-04-19] MEDS ORDERED: LISI2.5T13 PO (03:31)
[2021-04-19 05:33] LABS: BASOPHILS % (AUTO) 0.5 % (0.0-5.0); EOSINOPHILS % (AUTO) 3.6 % (0.0-8.0); HEMATOCRIT 39.7 % (42-54); LYMPHOCYTES % (AUTO) 31.1 % (21.0-51.0); MEAN CORPUSCULAR HEMOGLOBIN 30.7 pg (27.0-33.0); MEAN CORPUSCULAR HGB CONC 32.7 g/dL (32.0-36.0); MEAN CORPUSCULAR VOLUME 93.6 fL (79-99); MONOCYTES % (AUTO) 9.7 % (3.0-13.0); NEUTROPHILS % (AUTO) 54.8 % (40.0-77.0); PLATELET COUNT (AUTO) 184 K/uL (130-400); RED BLOOD CELL COUNT(AUTO) 4.24 MIL/uL (4.50-6.20); RED CELL DISTRIBUTION WIDTH 14.1 % (11.0-15.5); WHITE BLOOD COUNT (AUTO) 6.4 K/uL (4.8-10.8)
[2021-04-19 05:51] LABS: ALBUMIN 3.2 g/dL (3.5-5.0); BILIRUBIN,TOTAL 0.6 mg/dL (0.2-1.0); POTASSIUM 4.7 mmol/L (3.5-5.1); TOTAL PROTEIN, SERUM 7.8 g/dL (6.0-8.3)
[2021-04-19 06:02] LABS: HEMOGLOBIN A1C 9.6 % (4.0-6.0)
[2021-04-19] MEDS: INSULIN HUMULIN R 100 UNIT/ML 3ML SQ SCH ×3 (06:40→16:41)
[2021-04-19] MEDS: FAMOTIDINE 20MG TAB PO SCH ×2 (09:09→20:48)
[2021-04-19] MEDS ORDERED: 0.9%NACL 1000ML 1,000 ML IV SCH (11:30)
[2021-04-19] MEDS: TICAGRELOR 90 MG TABLET PO SCH (20:48)
[2021-04-19] MEDS ORDERED: ATORVASTATIN 40 MG TABLET PO SCH (21:00)
[2021-04-19] MEDS ORDERED: INSULIN GLARGINE 100 UNITS/ML 10 ML VIAL SQ SCH (21:00)
[2021-04-20] VITALS: BP 92/60
[2021-04-20 04:04] VITALS: BP 95/60
[2021-04-20 04:05] LABS: AMPHET/METH SCREEN,URINE NEGATIVE (NEGATIVE); BARBITURATE SCREEN, URINE NEGATIVE (NEGATIVE); BENZODIAZEPINES SCREEN,URINE NEGATIVE (NEGATIVE); CANNABINOID SCREEN,URINE NEGATIVE (NEGATIVE); COCAINE SCREEN,URINE NEGATIVE (NEGATIVE); OPIATE SCREEN,URINE NEGATIVE (NEGATIVE); PHENCYCLIDINE SCREEN,URINE NEGATIVE (NEGATIVE)
[2021-04-20 04:20] LABS: BASOPHILS % (AUTO) 0.4 % (0.0-5.0); EOSINOPHILS % (AUTO) 4.8 % (0.0-8.0); HEMATOCRIT 40.3 % (42-54); LYMPHOCYTES % (AUTO) 35.1 % (21.0-51.0); MEAN CORPUSCULAR HEMOGLOBIN 30.7 pg (27.0-33.0); MEAN CORPUSCULAR HGB CONC 32.5 g/dL (32.0-36.0); MEAN CORPUSCULAR VOLUME 94.4 fL (79-99); MONOCYTES % (AUTO) 7.1 % (3.0-13.0); NEUTROPHILS % (AUTO) 52.4 % (40.0-77.0); PLATELET COUNT (AUTO) 176 K/uL (130-400); RED BLOOD CELL COUNT(AUTO) 4.27 MIL/uL (4.50-6.20); RED CELL DISTRIBUTION WIDTH 13.9 % (11.0-15.5); WHITE BLOOD COUNT (AUTO) 5.4 K/uL (4.8-10.8)
[2021-04-20 04:29] LABS: CREATININE 0.8 mg/dL (0.5-1.5); MAGNESIUM 1.8 mg/dL (1.80-2.40); POTASSIUM 4.5 mmol/L (3.5-5.1)
[2021-04-20 04:42] LABS: B-TYPE NATRIURETIC PEPTIDE 29 pg/mL (0-100)
[2021-04-20] MEDS ORDERED: TRAMADOL HCL 50 MG TABLET PO SCH (07:00)
[2021-04-20 08:00] VITALS: BP 94/58
[2021-04-20 08:05] VITALS: BP 95/60
[2021-04-20] MEDS: INSULIN HUMULIN R 100 UNIT/ML 3ML SQ SCH ×2 (08:06→11:30)
[2021-04-20 08:10] VITALS: BP 87/53
[2021-04-20] MEDS: FAMOTIDINE 20MG TAB PO SCH (08:13)
[2021-04-20] MEDS: TICAGRELOR 90 MG TABLET PO SCH (08:14)
[2021-04-20] MEDS ORDERED: ASPIRIN 81 MG EC TAB PO SCH (09:00)
[2021-04-20] MEDS ORDERED: BUPROPION HCL 150 MG TABLET.SA PO SCH (09:00)
[2021-04-20] MEDS ORDERED: EMPA10TA PO (09:50)
[2021-04-20] MEDS ORDERED: GLIP10TA19 PO (09:50)
[2021-04-20] MEDS ORDERED: BUPR150T3 PO (09:50)
[2021-04-20] MEDS ORDERED: INSU3INS3 SQ (09:50)
[2021-04-20] MEDS ORDERED: ATOR40TA69 PO (09:50)
[2021-04-20 12:00] VITALS: BP 127/76
[2021-04-21 07:40] LABS: HEPATITIS B CORE IGM Negative (Negative); HEPATITIS Bs ANTIGEN SCREEN P Negative (Negative)
== END 2021-04-20 13:40 | disposition home or self-care (01) | DRG 312 ==
LOC: EDH 13:32 → EDHIP 18:52 → 4AH 04-19 02:59
PROVIDERS: ADMIT Hospitalist; ATTEND Hospitalist
DX: R55 Syncope and collapse (principal); I95.9 Hypotension, unspecified; E11.65 Type 2 diabetes mellitus with hyperglycemia; E78.00 Pure hypercholesterolemia, unspecified; I25.10 Atherosclerotic heart disease of native coronary artery without angina pectoris; K57.30 Diverticulosis of large intestine without perforation or abscess without bleeding; E78.5 Hyperlipidemia, unspecified; I10 Essential (primary) hypertension; Z20.822 Contact with and (suspected) exposure to COVID-19; Z91.19 Patient's noncompliance with other medical treatment and regimen; Z95.1 Presence of aortocoronary bypass graft; Z95.5 Presence of coronary angioplasty implant and graft; Z79.82 Long term (current) use of aspirin; Z79.84 Long term (current) use of oral hypoglycemic drugs; Z79.02 Long term (current) use of antithrombotics/antiplatelets; Z79.899 Other long term (current) drug therapy; Z82.3 Family history of stroke; Z83.3 Family history of diabetes mellitus; Z82.49 Family history of ischemic heart disease and other diseases of the circulatory system; F17.200 Nicotine dependence, unspecified, uncomplicated; I65.23 Occlusion and stenosis of bilateral carotid arteries; Z91.14 Patient's other noncompliance with medication regimen
CPT/HCPCS: 36415; 70450; 71045; 74174; 76705; 80048; 80053; 80061; 80074; 80305; 82040; 82550; 82948; 83036; 83735; 83874; 83880; 84100; 84484; 85025; 85378; 86804; 87522; 87635; 93005; 93880; C9803; G0378; J1815; J2405; J7040; Q9967

== ENCOUNTER 2021-05-04 13:51 | Emergency (ER) | payer MEDICARE ==
[~2021-05-04] VITALS: Ht 177.8 cm; Wt 94.8 kg
[~2021-05-04 13:51] MED LIST changes: -AMOX500C2 PO; +ATOR40TA69 PO; +BUPR150T3 PO; -CYAN1TAB44 PO; -DICY20TA2 PO; -GLIM1TAB18 PO; +GLIP10TA19 PO; -GLIP10TA9 PO; +INSU3INS3 SQ; +LISI2.5T13 PO; -METO10TA41 PO; -NITR0.4T50 SL; -PANT40TA PO
[2021-05-04 13:52] VITALS: BP 131/80
[2021-05-04 14:08] LABS: BASOPHILS % (AUTO) 0.5 % (0.0-5.0); EOSINOPHILS % (AUTO) 1.7 % (0.0-8.0); HEMATOCRIT 40.1 % (42-54); LYMPHOCYTES % (AUTO) 30.5 % (21.0-51.0); MEAN CORPUSCULAR HEMOGLOBIN 30.5 pg (27.0-33.0); MEAN CORPUSCULAR HGB CONC 32.7 g/dL (32.0-36.0); MEAN CORPUSCULAR VOLUME 93.5 fL (79-99); MONOCYTES % (AUTO) 7.3 % (3.0-13.0); NEUTROPHILS % (AUTO) 59.8 % (40.0-77.0); PLATELET COUNT (AUTO) 189 K/uL (130-400); RED BLOOD CELL COUNT(AUTO) 4.29 MIL/uL (4.50-6.20); RED CELL DISTRIBUTION WIDTH 14.4 % (11.0-15.5); WHITE BLOOD COUNT (AUTO) 8.2 K/uL (4.8-10.8)
== END 2021-05-04 19:40 | disposition left against medical advice (07) ==
LOC: EDH 13:51
DX: R07.89 Other chest pain (principal); Z53.21 Procedure and treatment not carried out due to patient leaving prior to being seen by health care provider
CPT/HCPCS: 36415; 71045; 82550; 84484; 85025; 93005

== ENCOUNTER 2021-06-26 17:32 | Emergency (ER) | payer MEDICARE ==
[~2021-06-26] VITALS: Ht 177.8 cm; Wt 94.8 kg
[2021-06-26 18:21] LABS: BASOPHILS % (AUTO) 0.3 % (0.0-5.0); EOSINOPHILS % (AUTO) 0.4 % (0.0-8.0); HEMATOCRIT 40.1 % (42-54); LYMPHOCYTES % (AUTO) 24.7 % (21.0-51.0); MEAN CORPUSCULAR HEMOGLOBIN 31.6 pg (27.0-33.0); MEAN CORPUSCULAR HGB CONC 34.4 g/dL (32.0-36.0); MEAN CORPUSCULAR VOLUME 91.8 fL (79-99); MONOCYTES % (AUTO) 7.5 % (3.0-13.0); NEUTROPHILS % (AUTO) 66.7 % (40.0-77.0); PLATELET COUNT (AUTO) 164 K/uL (130-400); RED BLOOD CELL COUNT(AUTO) 4.37 MIL/uL (4.50-6.20); RED CELL DISTRIBUTION WIDTH 14.2 % (11.0-15.5); WHITE BLOOD COUNT (AUTO) 9.2 K/uL (4.8-10.8)
[2021-06-26 18:34] LABS: INR 0.92 (0.85-1.15); PROTHROMBIN TIME 10.1 SEC (9.6-11.6)
[2021-06-26 18:36] LABS: CREATININE 0.8 mg/dL (0.5-1.5); POTASSIUM 4.1 mmol/L (3.5-5.1)
[2021-06-26 18:41] LABS: ALBUMIN 3.5 g/dL (3.5-5.0); BILIRUBIN,TOTAL 0.7 mg/dL (0.2-1.0); MAGNESIUM 1.6 mg/dL (1.80-2.40); TOTAL PROTEIN, SERUM 7.9 g/dL (6.0-8.3)
[2021-06-26 18:42] LABS: B-TYPE NATRIURETIC PEPTIDE 32 pg/mL (0-100)
[2021-06-26] MEDS ORDERED: 0.9% NACL 500ML IV.SOLN 500 ML IV ONE (19:30)
[2021-06-26] MEDS ORDERED: HYDROCODONE/ACETAMINOPHEN 5/325 MG TAB PO ONE (19:30)
[2021-06-26] MEDS ORDERED: AZITHROMYCIN 250 MG TABLET PO ONE (19:30)
[2021-06-26 19:44] VITALS: BP 109/62
[2021-06-26] MEDS ORDERED: BUDE180H IH (20:09)
[2021-06-26] MEDS ORDERED: D-ME118S47 PO (20:09)
[2021-06-26] MEDS ORDERED: DOXY-336 PO (20:09)
[2021-06-26] MEDS ORDERED: ONDA4TAB10 PO (20:09)
[2021-06-26 20:32] LABS: AMPHET/METH SCREEN,URINE NEGATIVE (NEGATIVE); BARBITURATE SCREEN, URINE NEGATIVE (NEGATIVE); BENZODIAZEPINES SCREEN,URINE NEGATIVE (NEGATIVE); CANNABINOID SCREEN,URINE NEGATIVE (NEGATIVE); COCAINE SCREEN,URINE NEGATIVE (NEGATIVE); OPIATE SCREEN,URINE NEGATIVE (NEGATIVE); PHENCYCLIDINE SCREEN,URINE NEGATIVE (NEGATIVE)
== END 2021-06-26 20:35 | disposition home or self-care (01) ==
LOC: EDH 17:32
DX: U07.1 COVID-19 (principal); E11.9 Type 2 diabetes mellitus without complications; I10 Essential (primary) hypertension; F17.200 Nicotine dependence, unspecified, uncomplicated; Z79.4 Long term (current) use of insulin; Z79.51 Long term (current) use of inhaled steroids; Z79.82 Long term (current) use of aspirin; Z79.899 Other long term (current) drug therapy; Z90.49 Acquired absence of other specified parts of digestive tract
CPT/HCPCS: 36415; 71045; 80053; 80305; 83735; 83880; 84484; 85025; 85610; 87635; 93005 ×2; 99285; C9803; J7040

== ENCOUNTER 2021-08-19 23:06 | Emergency (ER) | payer MEDICARE ==
[~2021-08-19] VITALS: Ht 177.8 cm; Wt 100.7 kg
[~2021-08-19 23:06] MED LIST changes: +BUDE180H IH; +D-ME118S47 PO; +DOXY-336 PO; +ONDA4TAB10 PO
[2021-08-19] MEDS ORDERED: ONDANSETRON 4MG INJ IVP ONE ×2 (23:07→23:30)
[2021-08-19 23:43] LABS: BASOPHILS % (AUTO) 0.4 % (0.0-5.0); EOSINOPHILS % (AUTO) 1.9 % (0.0-8.0); HEMATOCRIT 31.8 % (42-54); LYMPHOCYTES % (AUTO) 13.2 % (21.0-51.0); MEAN CORPUSCULAR HEMOGLOBIN 30.7 pg (27.0-33.0); MEAN CORPUSCULAR HGB CONC 31.8 g/dL (32.0-36.0); MEAN CORPUSCULAR VOLUME 96.7 fL (79-99); MONOCYTES % (AUTO) 5.2 % (3.0-13.0); NEUTROPHILS % (AUTO) 78.9 % (40.0-77.0); PLATELET COUNT (AUTO) 501 K/uL (130-400); RED BLOOD CELL COUNT(AUTO) 3.29 MIL/uL (4.50-6.20); RED CELL DISTRIBUTION WIDTH 14.8 % (11.0-15.5); WHITE BLOOD COUNT (AUTO) 13.5 K/uL (4.8-10.8)
[2021-08-19 23:56] LABS: CARBON DIOXIDE 29 mmol/L (21-32); CHLORIDE 100 mmol/L (101-111); CREATININE 0.6 mg/dL (0.5-1.5); GLOMERULAR FILTR. RATE CALC 148 mL/min (>60); GLUCOSE,RANDOM 167 mg/dL (70-105); POTASSIUM 4.7 mmol/L (3.5-5.1); SODIUM SERUM 136 mmol/L (136-145); UREA NITROGEN, BLOOD 11 mg/dL (7-18)
[2021-08-20] LABS: ALANINE AMINOTRANSFERASE 28 U/L (12-78); ALBUMIN 2.4 g/dL (3.5-5.0); ASPARTATE AMINOTRANSFERASE 35 U/L (10-37); BILIRUBIN,TOTAL 1.9 mg/dL (0.2-1.0)
[2021-08-20 00:02] LABS: LIPASE < 50 U/L (114-286)
[2021-08-20] MEDS ORDERED: PANTOPRAZOLE 40 MG/VIAL ONE (01:29)
[2021-08-20] MEDS ORDERED: IOHEXOL-350 75 ML VIAL IV ONE (01:52)
[2021-08-20 05:23] VITALS: BP 114/65
== END 2021-08-20 06:13 | disposition left against medical advice (07) ==
LOC: EDH 23:06
DX: C76.2 Malignant neoplasm of abdomen (principal); K63.89 Other specified diseases of intestine; R11.2 Nausea with vomiting, unspecified; G89.18 Other acute postprocedural pain; E11.9 Type 2 diabetes mellitus without complications; I10 Essential (primary) hypertension; F17.200 Nicotine dependence, unspecified, uncomplicated; Z79.899 Other long term (current) drug therapy; Z79.84 Long term (current) use of oral hypoglycemic drugs; Z79.4 Long term (current) use of insulin; Z79.82 Long term (current) use of aspirin; Z98.890 Other specified postprocedural states
CPT/HCPCS: 36415; 71045; 74177; 80053; 83605; 83690; 83880; 84484; 85025; 87040; 93005; 96374; 96375; 99285; C9113; J2405; Q9967

== ENCOUNTER 2022-01-19 15:34 | Emergency (ER) | payer MEDICARE ==
[~2022-01-19] VITALS: Ht 177.8 cm; Wt 86.2 kg
[2022-01-19] MEDS ORDERED: PROMETHAZINE HCL 25 MG/ML 1ML AMPULE IM SCH (16:00)
[2022-01-19] MEDS ORDERED: KETOROLAC 30MG VIAL (30MG/ML) IVP ONE (16:00)
[2022-01-19] MEDS ORDERED: ONDANSETRON 4MG INJ IVP ONE ×2 (16:00→20:00)
[2022-01-19] MEDS ORDERED: ONDANSETRON 4MG INJ ONE (16:03)
[2022-01-19 16:07] LABS: BASOPHILS % (AUTO) 0.5 % (0.0-5.0); EOSINOPHILS % (AUTO) 0.9 % (0.0-8.0); LYMPHOCYTES % (AUTO) 21.7 % (21.0-51.0); MEAN CORPUSCULAR HEMOGLOBIN 27.5 pg (27.0-33.0); MEAN CORPUSCULAR HGB CONC 32.8 g/dL (32.0-36.0); MONOCYTES % (AUTO) 6.2 % (3.0-13.0); NEUTROPHILS % (AUTO) 70.5 % (40.0-77.0); PLATELET COUNT (AUTO) 229 K/uL (130-400); RED BLOOD CELL COUNT(AUTO) 4.76 MIL/uL (4.50-6.20); RED CELL DISTRIBUTION WIDTH 17.2 % (11.0-15.5); WHITE BLOOD COUNT (AUTO) 5.8 K/uL (4.8-10.8)
[2022-01-19 16:17] LABS: CARBON DIOXIDE 28 mmol/L (21-32); CHLORIDE 99 mmol/L (101-111); GLOMERULAR FILTR. RATE CALC 82 mL/min (>60); GLUCOSE,RANDOM 388 mg/dL (70-105); POTASSIUM 3.8 mmol/L (3.5-5.1); SODIUM SERUM 137 mmol/L (136-145); UREA NITROGEN, BLOOD 7 mg/dL (7-18)
[2022-01-19] MEDS: 0.9%NACL 1000ML 1,000 ML IV SCH ×2 (16:19→17:15)
[2022-01-19 16:21] LABS: ALANINE AMINOTRANSFERASE 67 U/L (12-78); ALBUMIN 3.5 g/dL (3.5-5.0); ASPARTATE AMINOTRANSFERASE 55 U/L (10-37)
[2022-01-19 16:24] LABS: LIPASE < 50 U/L (114-286)
[2022-01-19 16:28] LABS: APPEARANCE,URINE CLEAR (CLEAR); BILIRUBIN,URINE NEGATIVE (NEGATIVE); COLOR,URINE YELLOW (YELLOW); GLUCOSE, URINE (UA) >=1000 mg/dL (NEGATIVE); KETONES,URINE NEGATIVE (NEGATIVE); LEUKOCYTE ESTERASE ,URINE NEGATIVE (NEGATIVE); NITRATE,URINE NEGATIVE (NEGATIVE); OCCULT BLOOD,URINE NEGATIVE (NEGATIVE); PROTEIN,URINE NEGATIVE (NEGATIVE)
[2022-01-19] MEDS ORDERED: INSULIN HUMULIN R 100 UNIT/ML 3ML IV ONE (16:30)
[2022-01-19 16:36] LABS: BACTERIA,URINE Few /HPF (None Seen); MUCUS,URINE Few LPF (None Seen); SQUAMOUS EPITHELIAL CELL,UR Few /HPF (0-2); WBC,URINE 0-1 /HPF (0-1)
[2022-01-19] MEDS ORDERED: INSULIN HUMULIN R 100 UNIT/ML 3ML ONE (16:38)
[2022-01-19 16:45] LABS: B-TYPE NATRIURETIC PEPTIDE 89 pg/mL (0-100)
[2022-01-19] MEDS ORDERED: LIDOCAINE HCL 2% VISCOUS 15 ML UDCUP ONE (17:11)
[2022-01-19] MEDS ORDERED: 0.9%NACL 1000ML 1,000 ML IV SCH (17:30)
[2022-01-19] MEDS ORDERED: MORPHINE 2 MG SYG IVP ONE (20:00)
[2022-01-19 20:40] VITALS: BP 113/63
== END 2022-01-19 20:48 | disposition short-term general hospital (02) ==
LOC: EDH 15:34
DX: K57.30 Diverticulosis of large intestine without perforation or abscess without bleeding (principal); K56.609 Unspecified intestinal obstruction, unspecified as to partial versus complete obstruction; E11.65 Type 2 diabetes mellitus with hyperglycemia; Z20.822 Contact with and (suspected) exposure to COVID-19; E11.9 Type 2 diabetes mellitus without complications; E78.00 Pure hypercholesterolemia, unspecified; I10 Essential (primary) hypertension; F17.200 Nicotine dependence, unspecified, uncomplicated; Z79.51 Long term (current) use of inhaled steroids; Z79.82 Long term (current) use of aspirin; Z79.84 Long term (current) use of oral hypoglycemic drugs; Z79.899 Other long term (current) drug therapy; Z90.49 Acquired absence of other specified parts of digestive tract
CPT/HCPCS: 99285; 74176; 96374; 96375; 71045; 96361; 87635; 84484; 80053; 83880; 83690; 85025; 82948; 86140; 81001; 36415; 96376; 96372; J1815; C9803; J2550; J2405 ×2; J1885

== ENCOUNTER → 2023-08-12 | Outpatient (CLI) | payer MEDICARE ==
[~2023-08-12] MED LIST changes: -DOXY-336 PO; +DOXY-469 PO
[2023-08-12 15:09] LABS: CREATININE 0.9 mg/dL (0.5-1.5)
== END | disposition home or self-care (01) ==
LOC: LAB 13:52
PROVIDERS: ATTEND Family Medicine
DX: C25.9 Malignant neoplasm of pancreas, unspecified (principal)
CPT/HCPCS: 36415; 82565; 84520

== ENCOUNTER → 2023-08-14 | Outpatient (CLI) | payer MEDICARE ==
[~2023-08-14] MED LIST changes: +IOHEXOL 350 MG/ML 100ML INFUS..BTL IV ONE
== END | disposition home or self-care (01) ==
LOC: RAH 08:31
PROVIDERS: ATTEND Family Medicine
DX: C25.9 Malignant neoplasm of pancreas, unspecified (principal)
CPT/HCPCS: 74178; Q9967

== ENCOUNTER 2024-11-27 15:56 | Emergency (ER) | payer MEDICARE ==
[~2024-11-27] VITALS: Ht 177.8 cm; Wt 81.6 kg
[~2024-11-27 15:56] MED LIST changes: +BROM118S48 PO; -D-ME118S47 PO; +DOXY-466 PO; -DOXY-469 PO; +GLIP-302 PO; -GLIP10TA19 PO; -IOHEXOL 350 MG/ML 100ML INFUS..BTL IV ONE; +ONDA-243 PO; -ONDA4TAB10 PO
--- NOTE | 2024-11-27 16:10 | ERN ---
General Chief Complaint: Palpitations Stated Complaint: PALPITATIONS Time Seen by MD: 15:59 Source: patient History of Present Illness Initial Comments Patient is a 58-year-old male coming in with multiple complaints. Patient states that he feels his heart racing at times and has felt very weak for some time. He states feel so weak that he feels as if he is going to pass out. He states that this has been ongoing for about one month. He does has a history of diabetes hypertension and cholesterol. Allergies: Coded Allergies: No Known Drug Allergies (Verified Allergy, Unknown, 10/21/19) Home Meds Active Scripts Budesonide (Pulmicort Inhaler) 180 Mcg/Puff Puff, 180 MCG IH BID for 7 Days, #1 INH Prov:SANDRA CORBIN MD 06/26/21 Ondansetron (Ondansetron Odt) 4 Mg Tab.rapdis, 4 MG PO Q8H PRN for NAUSEA/VOMITING, #15 TAB Prov:SANDRA CORBIN MD 06/26/21 D-Methorphan Hb/P-Epd HCl/Bpm (Bromfed Dm Cough Syrup) 118 Ml Syrup, 10 ML PO QID for cough for 7 Days, #120 ML Prov:SANDRA CORBIN MD 06/26/21 Doxycycline Monohydrate (Doxycycline Monohydrate) 100 Mg Capsule, 1 CAP PO BID for 7 Days, #14 CAP 0 Refills Prov:SANDRA CORBIN MD 06/26/21 Glipizide (Glipizide ER) 10 Mg Tab.er.24, 10 MG PO DAILY for 30 Days, #30 TAB Prov:MORAIMA BOSS Jr., MD 04/20/21 Insulin Glargine,Hum.rec.anlog (Lantus Solostar) 100 Unit/1 Ml Insuln.pen, 20 UNIT SQ HS for 30 Days, #1 PACK 3 Refills Prov:MORAIMA BOSS Jr., MD 04/20/21 Empagliflozin (Jardiance) 10 Mg Tablet, 10 MG PO DAILY for 30 Days, #30 TAB Prov:MORAIMA BOSS Jr., MD 04/20/21 Bupropion HCl (Wellbutrin Sr 150Mg) 150 Mg Tablet.er, 150 MG PO BID for 30 Days, #60 TAB Prov:MORAIMA BOSS Jr., MD 04/20/21 Atorvastatin Calcium (LIPITOR) 40 Mg Tablet, 80 MG PO HS for 90 Days, #90 TAB Prov:MORAIMA BOSS Jr., MD 04/20/21 Reported Medications Lisinopril (Lisinopril) 2.5 Mg Tablet, 2.5 MG PO DAILY, TAB 04/19/21 Aspirin (ASPIRIN 81 MG ECTAB) 81 Mg Ectab, 81 MG PO DAILY, TAB.EC 11/08/20 Ticagrelor (Brilinta) 90 Mg Tablet, 90 MG PO BID, TAB 11/08/20 Past Medical History Past Medical History: Diabetes-Type II, High Cholesterol, Heart Disease, Hypertension Medical History Other: INTESTINAL CANCER Past Surgical History: Appendectomy, Cholecystectomy, CABG Surgical History Other: Stent, Whipple procedure Family History Family History: Negative Social History Social History: Smokers, Lives with family ROS Dictation CONSTITUTIONAL: No chills, no fever, weakness, no diaphoresis, no malaise. HEAD/FACE: No signs of trauma. EENT: No eye pain, no blurred vision, no tearing, no double vision, no ear pain, no ear discharge, no nose pain, no nasal congestion, no throat pain, no throat swelling, no mouth pain. RESPIRATORY: No cough, no orthopnea, SOB, no stridor, no wheezing. CARDIOVASCULAR: No chest pain, no edema, no palpitations, no syncope. GASTROINTESTINAL/ABDOMINAL: No abdominal pain, no constipation, no diarrhea, no nausea, no vomiting. GENITOURINARY: No abnormal discharge, no dysuria, no frequent urination, no hematuria. No complaints of pain in the genitals. MUSCULOSKELETAL: No back pain, no gout, no joint pain, no joint swelling, no muscle pain, no muscle stiffness, no neck pain. INTEGUMENTARY: No change in color, no change in hair/nails, no dryness, no lesion, no lumps, no rash. NEUROLOGICAL/PSYCH: No anxiety, not depressed, no emotional problem, no headache, no numbness, no pre-existing deficit, no history of seizures, no tremors, no weakness. HEMATOLOGIC/LYMPHATIC: Not anemic, no history of blood clots, no apparent bleeding, no bruising, glands not swollen. All Systems Negative, Except as Noted. Physical Exam Physical Exam Dictation VITAL SIGNS: Reviewed. GENERAL APPEARANCE: Alert, oriented x3, no acute distress, obese. HEAD AND FACE: Non-traumatic. EYES: PERRL, pink conjunctivas, eyelid no trauma, anterior chamber clear. EARS: Pinnas intact and no signs of trauma or erythema. Ear canals clear and no discharge. TMs erythema. NOSE: No discharge, no bleeding. NASAL TURBINATE SWELLING OROPHARYNX: Mouth normal, teeth no caries, tongue pink. Pharynx erythema. Tonsils no exudates, no abscesses noted. Mucous membrane moist. NECK: Supple, non-tender, no thyromegaly, no masses, no JVD, no bruits. BREAST: Deferred. CHEST: No tenderness, no crepitus, no paradoxical movement, no retractions. LUNGS: Clear, well-ventilated, symmetric, no rales, no wheezing, no rhonchi, no stridor, good breath sounds bilaterally. HEART: Regular rate, regular rhythm, no murmur, no gallops. VASCULAR: No peripheral edema. ABDOMEN: Soft, positive bowel sounds, nondistended, no guarding, nontender, no rebound, no masses no hepatomegaly, no splenomegaly, no Turner's sign, no hernias. RECTAL: Deferred. GENITAL: Deferred. NEUROLOGICAL: Normal speech, gross motor function intact, gross sensory function intact. MUSCULOSKELETAL: Neck nontender, full range of motion, back nontender, full range of motion. EXTREMITIES: Nontender, full range of motion. SKIN: Color pink, dry, no turgor, no rash, no lacerations, no abrasions, no contusions. LYMPHATICS: Deferred. Results Laboratory and Microbiology Lab and Micro Result Laboratory Tests Test 11/27/24 16:17 11/27/24 17:00 White Blood Count 8.3 K/uL (4.8-10.8) Red Blood Count 4.32 MIL/uL (4.50-6.20) L Hemoglobin 13.3 g/dL (14.0-18.0) L Hematocrit 38.3 % (42-54) L Mean Corpuscular Volume 88.7 fL (79-99) Mean Corpuscular Hemoglobin 30.8 pg (27.0-33.0) Mean Corpuscular Hemoglobin Concent 34.7 g/dL (32.0-36.0) Red Cell Distribution Width 15.4 % (11.0-15.5) Platelet Count 119 K/uL (130-400) L Mean Platelet Volume 11.5 fL (7.5-10.5) H Immature Granulocyte % (Auto) 0.2 % (0-1) Neutrophils (%) (Auto) 67.0 % (40.0-77.0) Lymphocytes (%) (Auto) 24.6 % (21.0-51.0) Monocytes (%) (Auto) 7.3 % (3.0-13.0) Eosinophils (%) (Auto) 0.7 % (0.0-8.0) Basophils (%) (Auto) 0.2 % (0.0-5.0) Neutrophils # (Auto) 5.5 K/uL (1.8-7.7) Lymphocytes # (Auto) 2.0 K/uL (1.0-4.8) Monocytes # (Auto) 0.6 K/uL (0.1-1.0) Eosinophils # (Auto) 0.06 K/uL (0.00-0.70) Basophils # (Auto) 0.02 K/uL (0.00-0.20) Absolute Immature Granulocyte (auto 0.02 K/uL (0-1) Nucleated Red Blood Cells 0.0 % (0.0-0.19) Activated Partial Thromboplast Time 28.0 SEC (26.3-35.5) Sodium Level 125 mmol/L (136-145) L Potassium Level 4.5 mmol/L (3.5-5.1) Chloride Level 92 mmol/L (101-111) L Carbon Dioxide Level 22 mmol/L (21-32) Blood Urea Nitrogen 21 mg/dL (7-18) H Creatinine 1.0 mg/dL (0.5-1.3) Glomerular Filtration Rate Calc 87 mL/min (>90) Random Glucose 169 mg/dL (70-105) H Total Calcium 9.3 mg/dL (8.5-10.1) Magnesium Level 1.30 mg/dL (1.80-2.40) L Total Creatine Kinase 106 U/L (21-232) # Troponin I High Sensitivity 17 ng/L (4-75) Urine Color YELLOW (YELLOW) Urine Appearance CLOUDY (CLEAR) H Urine pH 5.5 (5.0-8.0) Urine Specific [place] 1.012 (1.001-1.031) Urine Protein 20 mg/dL (NEGATIVE) H Urine Glucose (UA) NEGATIVE mg/dL (NEGATIVE) Urine Ketones NEGATIVE mg/dL (NEGATIVE) Urine Occult Blood NEGATIVE (NEGATIVE) Urine Nitrate NEGATIVE (NEGATIVE) Urine Bilirubin NEGATIVE mg/dL (NEGATIVE) Urine Urobilinogen 0.2 mg/dL (0.2-1.0) Urine Leukocyte Esterase NEGATIVE [place]/uL Urine RBC 2-5 /HPF (0-1) H Urine WBC 2-5 /HPF (0-1) H Urine Squamous Epithelial Cells RARE /HPF (0-2) Urine Uric Acid Crystals RARE /LPF (None Seen) Urine Other Crystals (Auto) 3 /HPF (None Seen) Urine Bacteria None /HPF (None Seen) Urine Opiates Screen NEGATIVE (NEGATIVE) Urine Barbiturates Screen NEGATIVE (NEGATIVE) Urine Phencyclidine Screen NEGATIVE (NEGATIVE) Urine Amphetamines Screen NEGATIVE (NEGATIVE) Urine Benzodiazepines Screen NEGATIVE (NEGATIVE) Urine Cocaine Screen NEGATIVE (NEGATIVE) Urine Marijuana (THC) Screen NEGATIVE (NEGATIVE) Labs Reviewed?: Yes EKG/XRAY/US/CT/MRI EKG Comment 01/19/2025 TIME 4:18 P.M. VENTRICULAR RATE 85 SINUS RHYTHM [place] [address] WAVE ELEVATION OR DEPRESSION X-RAY Comment [address] [address] IMAGING REPORT Signed PATIENT: JORGE CANTU MR#: [id number] : 1965 SEX: M AGE: 58 LOCATION: ED ORDER [id number] STATUS: REG ER REPORT#: [id number] SERVICE 1603 REASON: weakness ORDERING PHYSICIAN: GABY ALARCON MD PROCEDURE: CXR1VW - CHEST 1VW EXAM: CR Chest, 1 View. CLINICAL HISTORY: weakness COMPARISON: None provided. FINDINGS: LUNGS: There is no mass, infiltrate, or acute pulmonary abnormality. PLEURAL SPACES: No evidence of pleural effusion or pneumothorax. MEDIASTINUM: Prior sternotomy. The cardiomediastinal silhouette is within normal limits. BONES: No aggressive appearing osseous lesion seen. IMPRESSION: No acute cardiopulmonary pathology is evident. /[place] DICTATED BY: ADAIR SAMPSON Jr., MD DATE: 11/27/241753 ELECTRONICALLY SIGNED BY: ADAIR SAMPSON Jr., MD DATE: 11/27/241753 MDM MDM: Differential diagnosis: Chronic fatigue syndrome, dehydration, Rationale: Tests considered and ordered secondary to shared decision making include: Previous outside records reviewed: Old ER visits. Risk of complication and/or morbidity or mortality of patient management: None Medications-Per medication reconciliation Need for hospitalization: Patient does not meet criteria for hospitalization. PATIENT IS A 58-YEAR-OLD GENTLEMAN COMING IN WITH MULTIPLE COMPLAINTS. PATIENT STATES THAT HE HAS BEEN FEELING GENERALIZED BODY WEAKNESS MILD COUGH SHORTNESS OF BREATH AND DIZZINESS. ON PHYSICAL EXAM BILATERAL TYMPANIC MEMBRANE ERYTHEMA RIGHT TYMPANIC MEMBRANE LOOKS FIBROTIC WITH SOME RUPTURES AND REPAIRS NASAL TURBINATE SWELLING AND OROPHARYNGEAL DRAINAGE. I ADVISED HIM APPROPRIATE FOLLOW UP WITH PCP MEDICATION WILL BE PROVIDED FOR SYMPTOMATIC RELIEF. CARDIAC WORKUP NEGATIVE FOR ACUTE FINDINGS. PATIENT WAS HYDRATED WITH IV FLUIDS WELL AND STATES HE FEELS BETTER. ED Course Orders Procedure Category Date Status Time Cbc With Differential LAB 11/27/24 Complete 16:03 Chest 1vw RAD 11/27/24 Resulted 16:03 12 Lead Ekg Tracing- EKG 11/27/24 Logged Technical 16:03 Lactated Ringers PHA 11/27/24 Complete 1000ml (Lactated 16:30 Magnesium LAB 11/27/24 Complete 16:03 Creatine Kinase, Total LAB 11/27/24 Complete 16:03 Troponin I High LAB 11/27/24 Complete Sensitivity 16:03 Urinalysis Profile LAB 11/27/24 Complete 16:03 Partial LAB 11/27/24 Complete Thromboplastin Time 16:03 Basic Metabolic Panel LAB 11/27/24 Complete 16:03 Drug Screen Urine LAB 11/27/24 Complete 17:22 Current Medications Medications (Trade) Dose Ordered Sig/Benito Route PRN Reason Start Time Stop Time Status Last Admin Dose Admin Lactated Ringer's 1,000 ml @ 0 mls/hr ONCE ONCE IV 11/27/24 16:30 11/27/24 16:31 DC 11/27/24 16:20 Vital Signs Date Time Temp Pulse Resp B/P (MAP) Pulse Ox O2 Delivery O2 Flow Rate FiO2 11/27/24 17:57 98.1 76 14 112/62 100 Room Air* 0 21 11/27/24 16:03 98.8 97 16 130/75 99 Room Air* 0 21 11/27/24 15:58 98.8 97 16 130/75 99 Room Air 0 DX & DISP Disposition: Discharge Departure Impression: Primary Impression: Sinusitis Additional Impression: Dehydration Condition: Stable Scripts Amoxicillin/Potassium Clav (Amox Tr-K Clv 875-125 mg Tab) 875 Mg-125 Mg Tablet 1 TAB PO BID for 10 Days, #20 TAB 0 Refills Prov: GABY ALARCON MD 11/27/24 Loratadine (Loratadine) 10 Mg Tablet 1 TAB PO DAILY for allergy symptoms for 30 Days, #30 TAB 0 Refills Prov: GABY ALARCON MD 11/27/24 Fluticasone Propionate (Flonase Nasal [place]) 50 Mcg/Actuation [place] 2 SPRAY NS DAILY, #16 GM 0 Refills Prov: GABY ALARCON MD 11/27/24 Additional Instructions: FOLLOW-UP WITH PRIMARY CARE PROVIDER IN 1 TO 2 DAYS. TAKE MEDICATIONS DIRECTED HERE IN THE EMERGENCY ROOM. OKAY TO CONTINUE HOME MEDICATIONS UNLESS OTHERWISE DISCUSSED DURING YOUR VISIT IN THE EMERGENCY ROOM TODAY. RETURN TO YOUR NEAREST EMERGENCY ROOM IF SYMPTOMS WORSEN OR IF THERE IS NO IMPROVEMENT. CALL 911 IF YOU NEED IMMEDIATE ASSISTANCE. TAKE TYLENOL [id number] NEEDED AND IF NO CONTRAINDICATIONS ARE PRESENT. INCREASE ORAL HYDRATION. A WOUND CULTURE OR URINE CULTURE WAS ORDERED HERE IN THE EMERGENCY ROOM DEPARTMENT PLEASE FOLLOW-UP WITH PRIMARY CARE PROVIDER AND ADVISE THEM TO GET REPORTS FROM OUR FACILITY. IF YOU HAD ANY MADELINE WRAP/SPLINTS THAT WERE APPLIED HERE, PLEASE DO NOT REMOVE THEM UNTIL YOU SEE YOUR PRIMARY CARE OR SPECIALTY. REFERRALS: Referrals: NAY KILGORE Jr., MD (PCP) ORA GALLEGO MD Time of Disposition: 18:23 GABY ALARCON MD Nov 27, 2024 16:10
[2024-11-27] MEDS: LACTATED RINGERS 1000ML 1,000 ML IV ONE (16:20)
[2024-11-27 16:27] LABS: BASOPHILS # (AUTO) 0.02 K/uL (0.00-0.20); BASOPHILS % (AUTO) 0.2 % (0.0-5.0); EOSINOPHILS # (AUTO) 0.06 K/uL (0.00-0.70); EOSINOPHILS % (AUTO) 0.7 % (0.0-8.0); HEMATOCRIT 38.3 % (42-54); IMMATURE GRANULOCYTE ABSOLUTE 0.02 K/uL (0-1); LYMPHOCYTES % (AUTO) 24.6 % (21.0-51.0); MEAN CORPUSCULAR HEMOGLOBIN 30.8 pg (27.0-33.0); MEAN CORPUSCULAR HGB CONC 34.7 g/dL (32.0-36.0); MEAN CORPUSCULAR VOLUME 88.7 fL (79-99); MONOCYTES # (AUTO) 0.6 K/uL (0.1-1.0); MONOCYTES % (AUTO) 7.3 % (3.0-13.0); NEUTROPHILS # (AUTO) 5.5 K/uL (1.8-7.7); PLATELET COUNT (AUTO) 119 K/uL (130-400); RED BLOOD CELL COUNT(AUTO) 4.32 MIL/uL (4.50-6.20); RED CELL DISTRIBUTION WIDTH 15.4 % (11.0-15.5); WHITE BLOOD COUNT (AUTO) 8.3 K/uL (4.8-10.8)
[2024-11-27 16:39] LABS: POTASSIUM 4.5 mmol/L (3.5-5.1)
[2024-11-27 16:53] LABS: MAGNESIUM 1.3 mg/dL (1.80-2.40)
--- NOTE | 2024-11-27 16:55 | HMCIMG ---
EXAM: CR Chest, 1 View. CLINICAL HISTORY: weakness COMPARISON: None provided. FINDINGS: LUNGS: There is no mass, infiltrate, or acute pulmonary abnormality. PLEURAL SPACES: No evidence of pleural effusion or pneumothorax. MEDIASTINUM: Prior sternotomy. The cardiomediastinal silhouette is within normal limits. BONES: No aggressive appearing osseous lesion seen. IMPRESSION: No acute cardiopulmonary pathology is evident. /[place]
[2024-11-27 17:06] LABS: ADD UA MICROSCOPIC YES; APPEARANCE,URINE CLOUDY (CLEAR); BILIRUBIN,URINE NEGATIVE (NEGATIVE); COLOR,URINE YELLOW (YELLOW); GLUCOSE, URINE (UA) NEGATIVE (NEGATIVE); KETONES,URINE NEGATIVE (NEGATIVE); LEUKOCYTE ESTERASE ,URINE NEGATIVE Leu/uL (NEGATIVE); NITRATE,URINE NEGATIVE (NEGATIVE); OCCULT BLOOD,URINE NEGATIVE (NEGATIVE); PH,URINE 5.5 (5.0-8.0); PROTEIN,URINE 20 mg/dL (NEGATIVE); UROBILINOGEN,URINE 0.2 mg/dL (0.2-1.0)
[2024-11-27 17:08] LABS: MUCUS,URINE RARE LPF (None Seen); SQUAMOUS EPITHELIAL CELL,UR RARE /HPF (0-2); UNCLASSIFIED CRYSTAL 3 /HPF (None Seen); URIC ACID CRYSTALS,URINE RARE /LPF (None Seen)
[2024-11-27 17:57] VITALS: BP 112/62; PULSE 76; RESP 14; TEMP 98.1; O2SAT 100
[2024-11-27 18:13] LABS: AMPHET/METH SCREEN,URINE NEGATIVE (NEGATIVE); BARBITURATE SCREEN, URINE NEGATIVE (NEGATIVE); BENZODIAZEPINES SCREEN,URINE NEGATIVE (NEGATIVE); CANNABINOID SCREEN,URINE NEGATIVE (NEGATIVE); COCAINE SCREEN,URINE NEGATIVE (NEGATIVE); OPIATE SCREEN,URINE NEGATIVE (NEGATIVE); PHENCYCLIDINE SCREEN,URINE NEGATIVE (NEGATIVE)
[2024-11-27] MEDS ORDERED: LORA10TA7 PO (18:26)
[2024-11-27] MEDS ORDERED: FLUT16H NS (18:26)
[2024-11-27] MEDS ORDERED: AMOX1TAB16 PO (18:26)
--- NOTE | 2024-11-27 19:27 | EKG ---
[facility] Test Date: 2024-11-27 Test Time: 16:18:39 Pat Name: JORGE CANTU Department: ED Room: Gender: M Insurance Account Representative: [id number] : 1965 Requested By: GABY ALARCON Order Number: [id number] Reading MD: James Casey Measurements Intervals [place] Rate: 85 P: 38 OR: 154 QRS: 19 QRSD: 77 T: 85 QT: 326 QTc: 389 Interpretive Statements Sinus rhythm Compared to ECG 08/19/2021 23:24:58 Sinus tachycardia no longer present T-wave abnormality no longer present Electronically Signed On 11-28-2024 13:08:29 CDT by James Casey Please click the below link to view image of tracing.
== END 2024-11-27 18:34 | disposition home or self-care (01) ==
LOC: EDH 15:56
DX: J32.9 Chronic sinusitis, unspecified (principal); E86.0 Dehydration; E11.9 Type 2 diabetes mellitus without complications; E78.00 Pure hypercholesterolemia, unspecified; I10 Essential (primary) hypertension; F17.200 Nicotine dependence, unspecified, uncomplicated; Z79.02 Long term (current) use of antithrombotics/antiplatelets; Z79.51 Long term (current) use of inhaled steroids; Z79.82 Long term (current) use of aspirin; Z79.84 Long term (current) use of oral hypoglycemic drugs; Z79.899 Other long term (current) drug therapy; Z90.49 Acquired absence of other specified parts of digestive tract; Z95.1 Presence of aortocoronary bypass graft
CPT/HCPCS: 99285; 71045; 82550; 83735; 84484; 80048; 80305; 85025; 85730; 36415; 93005; 81001; J7120

== ENCOUNTER 2025-04-13 15:56 | Emergency (ER) | payer MEDICARE, MEDICAID ==
[~2025-04-13] VITALS: Ht 177.8 cm; Wt 81.6 kg
[~2025-04-13 15:56] MED LIST changes: +ALBUHFA IH; +AMOX1TAB16 PO; +AZIT500T2 PO; +FLUT16H NS; +LORA10TA7 PO
[2025-04-13 15:59] VITALS: BP 138/59; PULSE 85; RESP 18; TEMP 98.3
--- NOTE | 2025-04-13 16:08 | ERN ---
General Chief Complaint: Chest Pain Stated Complaint: CHEST PRESSURE Time Seen by MD: 15:59 Source: patient History of Present Illness Initial Comments PATIENT IS A 59-YEAR-OLD NUMB COMING IN COMPLAINING OF CHEST PRESSURE. PER PATIENT THE CHEST PRESSURE BEGAN EARLIER TODAY. HE STATES THAT THE PRESSURE IS LOCATE THE LEFT-SIDED CHEST. Allergies: Coded Allergies: No Known Drug Allergies (Verified Allergy, Unknown, 10/21/19) Home Meds Active Scripts Albuterol Sulfate (Ventolin Hfa/Proventil Hfa/Proair Hfa) 90 Mcg Puff, 2 PUFF IH Q4H for WHEEZING, #1 INHALER 0 Refills Prov:ANÍBAL SHABAZZ WARRANTY ADMINISTRATOR 12/11/24 Azithromycin (Zithromax Tri-Solo) 500 Mg Tablet, 500 MG PO DAILY for 7 Days, #7 TAB Prov:ANÍBAL SHABAZZP 12/11/24 Amoxicillin/Potassium Clav (Amox Tr-K Clv 875-125 mg Tab) 875 Mg-125 Mg Tablet, 1 TAB PO BID for 10 Days, #20 TAB 0 Refills Prov:GABY ALARCON MD 11/27/24 Loratadine (Loratadine) 10 Mg Tablet, 1 TAB PO DAILY for allergy symptoms for 30 Days, #30 TAB 0 Refills Prov:GABY ALARCON MD 11/27/24 Fluticasone Propionate (Flonase Nasal [place]) 50 Mcg/Actuation [place], 2 SPRAY NS DAILY, #16 GM 0 Refills Prov:GABY ALARCON MD 11/27/24 Budesonide (Pulmicort Inhaler) 180 Mcg/Puff Puff, 180 MCG IH BID for 7 Days, #1 INH Prov:SANDRA CORBIN MD 06/26/21 Ondansetron (Ondansetron Odt) 4 Mg Tab.rapdis, 4 MG PO Q8H PRN for NAUSEA/VOMITING, #15 TAB Prov:SANDRA CORBIN MD 06/26/21 D-Methorphan Hb/P-Epd HCl/Bpm (Bromfed Dm Cough Syrup) 118 Ml Syrup, 10 ML PO QID for cough for 7 Days, #120 ML Prov:SANDRA CORBIN MD 06/26/21 Doxycycline Monohydrate (Doxycycline Monohydrate) 100 Mg Capsule, 1 CAP PO BID for 7 Days, #14 CAP 0 Refills Prov:SANDRA CORBIN MD 06/26/21 Glipizide (Glipizide ER) 10 Mg Tab.er.24, 10 MG PO DAILY for 30 Days, #30 TAB Prov:MORAIMA BOSS Jr., MD 04/20/21 Insulin Glargine,Hum.rec.anlog (Lantus Solostar) 100 Unit/1 Ml Insuln.pen, 20 UNIT SQ HS for 30 Days, #1 PACK 3 Refills Prov:MORAIMA BOSS Jr., MD 04/20/21 Empagliflozin (Jardiance) 10 Mg Tablet, 10 MG PO DAILY for 30 Days, #30 TAB Prov:MORAIMA BOSS Jr., MD 04/20/21 Bupropion HCl (Wellbutrin Sr 150Mg) 150 Mg Tablet.er, 150 MG PO BID for 30 Days, #60 TAB Prov:MORAIMA BOSS Jr., MD 04/20/21 Atorvastatin Calcium (LIPITOR) 40 Mg Tablet, 80 MG PO HS for 90 Days, #90 TAB Prov:MORAIMA BOSS Jr., MD 04/20/21 Reported Medications Lisinopril (Lisinopril) 2.5 Mg Tablet, 2.5 MG PO DAILY, TAB 04/19/21 Aspirin (ASPIRIN 81 MG ECTAB) 81 Mg Ectab, 81 MG PO DAILY, TAB.EC 11/08/20 Ticagrelor (Brilinta) 90 Mg Tablet, 90 MG PO BID, TAB 11/08/20 Past Medical History Past Medical History: Cancer, Diabetes-Type II, High Cholesterol, Heart Disease, Hypertension Medical History Other: INTESTINAL CANCER Past Surgical History: Appendectomy, Cholecystectomy, CABG, Other Surgical History Other: ABD SX Family History Family History: Negative Social History Social History: Smokers, Lives with family ROS Dictation CONSTITUTIONAL: NO CHILLS, NO FEVER, NO WEAKNESS, NO DIAPHORESIS, NO MALAISE. HEAD/FACE: NO SIGNS OF TRAUMA. EENT: NO EYE PAIN, NO BLURRED VISION, NO TEARING, NO DOUBLE VISION, NO EAR PAIN, NO EAR DISCHARGE, NO NOSE PAIN, NO NASAL CONGESTION, NO THROAT PAIN, NO THROAT SWELLING, NO MOUTH PAIN. RESPIRATORY: NO COUGH, NO ORTHOPNEA, NO SOB, NO STRIDOR, NO WHEEZING. CARDIOVASCULAR: CHEST PAIN, NO EDEMA, NO PALPITATIONS, NO SYNCOPE. GASTROINTESTINAL/ABDOMINAL: NO ABDOMINAL PAIN, NO CONSTIPATION, NO DIARRHEA, NO NAUSEA, NO VOMITING. GENITOURINARY: NO ABNORMAL DISCHARGE, NO DYSURIA, NO FREQUENT URINATION, NO HEMATURIA. NO COMPLAINTS OF PAIN IN THE GENITALS. MUSCULOSKELETAL: NO BACK PAIN, NO GOUT, NO JOINT PAIN, NO JOINT SWELLING, NO MUSCLE PAIN, NO MUSCLE STIFFNESS, NO NECK PAIN. INTEGUMENTARY: NO CHANGE IN COLOR, NO CHANGE IN HAIR/NAILS, NO DRYNESS, NO LESION, NO LUMPS, NO RASH. NEUROLOGICAL/PSYCH: NO ANXIETY, NOT DEPRESSED, NO EMOTIONAL PROBLEM, NO HEADACHE, NO NUMBNESS, NO PRE-EXISTING DEFICIT, NO HISTORY OF SEIZURES, NO TREMORS, NO WEAKNESS. HEMATOLOGIC/LYMPHATIC: NOT ANEMIC, NO HISTORY OF BLOOD CLOTS, NO APPARENT BLEEDING, NO BRUISING, GLANDS NOT SWOLLEN. ALL SYSTEMS NEGATIVE, EXCEPT NOTED. Physical Exam Physical Exam Dictation VITAL SIGNS: REVIEWED. GENERAL APPEARANCE: ALERT, ORIENTED X3, NO ACUTE DISTRESS, OBESE. HEAD AND FACE: NON-TRAUMATIC. EYES: PERRL, PINK CONJUNCTIVAS, EYELID NO TRAUMA, ANTERIOR CHAMBER CLEAR. EARS: PINNAS INTACT AND NO SIGNS OF TRAUMA OR ERYTHEMA. EAR CANALS CLEAR AND NO DISCHARGE. TMS NO ERYTHEMA. NOSE: NO DISCHARGE, NO BLEEDING. OROPHARYNX: MOUTH NORMAL, TEETH NO CARIES, TONGUE PINK. PHARYNX CLEAR, NO ERYTHEMA. TONSILS NO EXUDATES, NO ABSCESSES NOTED. MUCOUS MEMBRANE MOIST. NECK: SUPPLE, NON-TENDER, NO THYROMEGALY, NO MASSES, NO JVD, NO BRUITS. BREAST: DEFERRED. CHEST: NO TENDERNESS, NO CREPITUS, NO PARADOXICAL MOVEMENT, NO RETRACTIONS. LUNGS: CLEAR, WELL-VENTILATED, SYMMETRIC, NO RALES, NO WHEEZING, NO RHONCHI, NO STRIDOR, GOOD BREATH SOUNDS BILATERALLY. HEART: REGULAR RATE, REGULAR RHYTHM, NO MURMUR, NO GALLOPS. VASCULAR: NO PERIPHERAL EDEMA. ABDOMEN: SOFT, POSITIVE BOWEL SOUNDS, NONDISTENDED, NO GUARDING, NONTENDER, NO REBOUND, NO MASSES NO HEPATOMEGALY, NO SPLENOMEGALY, NO GRAYSON'S SIGN, NO HERNIAS. RECTAL: DEFERRED. GENITAL: DEFERRED. NEUROLOGICAL: NORMAL SPEECH, GROSS MOTOR FUNCTION INTACT, GROSS SENSORY FUNCTION INTACT. MUSCULOSKELETAL: NECK NONTENDER, FULL RANGE OF MOTION, BACK NONTENDER, FULL RANGE OF MOTION. EXTREMITIES: NONTENDER, FULL RANGE OF MOTION. SKIN: COLOR PINK, DRY, NO TURGOR, NO RASH, NO LACERATIONS, NO ABRASIONS, NO CONTUSIONS. LYMPHATICS: DEFERRED. Results Laboratory and Microbiology Lab and Micro Result Laboratory Tests Test 04/13/25 16:37 04/13/25 17:45 White Blood Count 4.1 K/uL (4.8-10.8) L Red Blood Count 4.04 MIL/uL (4.50-6.20) L Hemoglobin 12.1 g/dL (14.0-18.0) L Hematocrit 37.4 % (42-54) L Mean Corpuscular Volume 92.6 fL (79-99) Mean Corpuscular Hemoglobin 30.0 pg (27.0-33.0) Mean Corpuscular Hemoglobin Concent 32.4 g/dL (32.0-36.0) Red Cell Distribution Width 14.7 % (11.0-15.5) Platelet Count 99 K/uL (130-400) L Mean Platelet Volume 11.2 fL (7.5-10.5) H Immature Granulocyte % (Auto) 0.0 % (0-1) Neutrophils (%) (Auto) 57.3 % (40.0-77.0) Lymphocytes (%) (Auto) 32.5 % (21.0-51.0) Monocytes (%) (Auto) 7.3 % (3.0-13.0) Eosinophils (%) (Auto) 2.4 % (0.0-8.0) Basophils (%) (Auto) 0.5 % (0.0-5.0) Neutrophils # (Auto) 2.4 K/uL (1.8-7.7) Lymphocytes # (Auto) 1.3 K/uL (1.0-4.8) Monocytes # (Auto) 0.3 K/uL (0.1-1.0) Eosinophils # (Auto) 0.10 K/uL (0.00-0.70) Basophils # (Auto) 0.02 K/uL (0.00-0.20) Absolute Immature Granulocyte (auto 0.00 K/uL (0-1) Nucleated Red Blood Cells 0.0 % (0.0-0.19) Sodium Level 141 mmol/L (136-145) Potassium Level 4.5 mmol/L (3.5-5.1) Chloride Level 105 mmol/L (101-111) Carbon Dioxide Level 32 mmol/L (21-32) Blood Urea Nitrogen 8 mg/dL (7-18) Creatinine 0.7 mg/dL (0.5-1.3) Glomerular Filtration Rate Calc 105 mL/min (>90) Random Glucose 282 mg/dL (70-105) H Total Calcium 8.1 mg/dL (8.5-10.1) L Troponin I High Sensitivity 8 ng/L (4-75) 9 ng/L (4-75) Labs Reviewed?: Yes EKG/XRAY/US/CT/MRI EKG Comment 04/13/2025 TIME 4:14 P.M. VENTRICULAR RATE 81 SINUS RHY[address]M [place] [address] WAVE ELEVATION OR DEPRESSION MDM MDM: DIFFERENTIAL DIAGNOSIS: RATIONALE: TESTS CONSIDERED AND ORDERED SECONDARY TO SHARED DECISION MAKING INCLUDE: PREVIOUS OUTSIDE RECORDS REVIEWED: OLD ER VISITS. RISK OF COMPLICATION AND/OR MORBIDITY OR MORTALITY OF PATIENT MANAGEMENT: NONE MEDICATIONS-PER MEDICATION RECONCILIATION NEED FOR HOSPITALIZATION: PATIENT DOES NOT MEET CRITERIA FOR HOSPITALIZATION. NEED FOR EMERGENCY MAJOR/MINOR SURGERY: NO THERE ARE NO SOCIAL CONCERNS WITH THIS PATIENT. PRESCRIPTION DRUG MANAGEMENT PRESCRIPTIONS WILL INCLUDE SYMPTOMATIC CARE PATIENT'S PRIOR EXTERNAL MEDICAL RECORDS FROM OTHER ER VISITS WERE REVIEWED BY ME INDICATED. PRIOR TESTING AND RESULTS FROM PREVIOUS VISITS WERE REVIEWED. PRIOR TESTS WERE TAKEN INTO ACCOUNT WITH MEDICAL DECISION MAKING AND RESOURCE UTILIZATION, INDEPENDENT HISTORIAN/HISTORIANS WERE USED TO OBTAIN COMPLETE MEDICAL HISTORY. I INDEPENDENTLY INTERPRETED THE TEST THAT WERE PERFORMED, RESULTS WERE REVIEWED BY ME AND CONSIDERED FINDINGS ON RADIOLOGY IF ORDERED. MEDICAL MANAGEMENT AND EXAMINATION INTERPRETATION DISCUSSIONS WERE HAD BY ME WITH OTHER QUALIFIED HEALTHCARE PROFESSIONALS INDICATED FOR THE PATIENT'S CARE. ED Course Orders Procedure Category Date Status Time Cbc With Differential LAB 04/13/25 Complete 16:03 Chest 1vw RAD 04/13/25 Taken 16:03 12 Lead Ekg Tracing- EKG 04/13/25 Logged Technical 16:03 Troponin I High LAB 04/13/25 Complete Sensitivity 16:03 Basic Metabolic Panel LAB 04/13/25 Complete 16:03 Troponin I High LAB 04/13/25 Complete Sensitivity 17:04 Nitroglycerin 0.4mg PHA 04/13/25 In Process Sl Tab (Nitrostat) 18:30 Current Medications Medications (Trade) Dose Ordered Sig/Benito Route PRN Reason Start Time Stop Time Status Last Admin Dose Admin Nitroglycerin (Nitrostat) 0.4 mg AD PRN SL CHEST PAIN 04/13/25 18:30 05/13/25 18:29 Vital Signs Date Time Temp Pulse Resp B/P (MAP) Pulse Ox O2 Delivery O2 Flow Rate FiO2 04/13/25 15:59 98.2 85 18 138/59 100 Room Air 0 DX & DISP Disposition: Other(Comment) (PATIENT CARE TRANSITIONED TO DR. GRIER) Departure Impression: Primary Impression: Chest pain Condition: Stable Referrals: NAY KILGORE Jr., MD (PCP) GABY ALARCON MD Apr 13, 2025 16:08
[2025-04-13 16:46] LABS: IMMATURE GRANULOCYTE ABSOLUTE 0.00 K/uL (0-1); NUCLEATED RED BLOOD CELLS 0.0 % (0.0-0.19); PLATELET COUNT (AUTO) 99 K/uL (130-400); RED BLOOD CELL COUNT(AUTO) 4.04 MIL/uL (4.50-6.20); RED CELL DISTRIBUTION WIDTH 14.7 % (11.0-15.5); WHITE BLOOD COUNT (AUTO) 4.1 K/uL (4.8-10.8)
[2025-04-13 16:54] LABS: CREATININE 0.7 mg/dL (0.5-1.3); GLOMERULAR FILTR. RATE CALC 105.0 mL/min (>90); GLUCOSE,RANDOM 282.0 mg/dL (70-105); SODIUM SERUM 141.0 mmol/L (136-145); UREA NITROGEN, BLOOD 8.0 mg/dL (7-18)
[2025-04-13] MEDS ORDERED: NITROGLYCERIN 0.4 MG SL TAB SL PRN (18:30)
--- NOTE | 2025-04-13 19:40 | EKG ---
[facility] Test Date: 2025-04-13 Test Time: 16:14:20 Pat Name: JORGE CANTU Department: ED Room: Gender: M Environmental Manager: L[place]OR[place] : 1965 Requested By: GABY ALARCON Order Number: [id number] Reading MD: Brennen Mijares Measurements Intervals Rodman Rate: 81 P: 46 LA: 154 QRS: -5 QRSD: 76 T: 75 QT: 361 QTc: 420 Interpretive Statements Sinus rhythm Low voltage, extremity and precordial leads Compared to ECG 11/27/2024 16:18:39 Low QRS voltage now present Electronically Signed On 04-14-2025 19:04:34 [employer]OBATION SUPERVISOR by Brennen Mijares Please click the below link to view image of tracing.
--- NOTE | 2025-04-13 19:52 | NUR ---
CALLED IN ER LOBBY, NO ANSWER
--- NOTE | 2025-04-13 20:07 | NUR ---
CALLED IN ER LOBBY, NO ANSWER
--- NOTE | 2025-04-13 20:22 | NUR ---
PATIENT NOT IN ED LOBBY WHEN CALLED
--- NOTE | 2025-04-15 21:00 | HMCIMG ---
EXAM: CR Chest, 1 view CLINICAL HISTORY: Chest pain. COMPARISON: 12/11/2024. FINDINGS: The lungs show no infiltrates or other acute findings. No pleural effusion or pneumothorax. The cardiomediastinal silhouette is within normal limits. Mild atherosclerotic aorta. Status poststernotomy. No acute osseous abnormality. IMPRESSION: No acute cardiopulmonary process is evident. Compared to the prior study, there is no significant interval change. /[place]
== END 2025-04-13 20:23 | disposition left against medical advice (07) ==
LOC: EDH 15:56
DX: R07.89 Other chest pain (principal); E11.9 Type 2 diabetes mellitus without complications; E78.00 Pure hypercholesterolemia, unspecified; I11.9 Hypertensive heart disease without heart failure; F17.200 Nicotine dependence, unspecified, uncomplicated; Z79.899 Other long term (current) drug therapy; Z79.84 Long term (current) use of oral hypoglycemic drugs; Z79.82 Long term (current) use of aspirin; Z79.51 Long term (current) use of inhaled steroids; Z90.49 Acquired absence of other specified parts of digestive tract; Z95.1 Presence of aortocoronary bypass graft
CPT/HCPCS: 36415; 71045; 80048; 84484; 85025; 93005; 99285